=== PATIENT | male | born 1960 ===

== ENCOUNTER 2016-09-02 15:52 | Inpatient (IN) | payer BC ==
[2016-09-02] MEDS ORDERED: Sodium Chloride 0.9% 2,000 ML IV STA (16:08)
[2016-09-02] MEDS ORDERED: Naloxone 4 mg/10 ml Inj IV STA (16:34)
[2016-09-02 16:35] LABS: HEMATOCRIT 49.4 % (42.0-52.0); MEAN CELL VOLUME 93.9 fL (80.0-105.0); MEAN CORPUSCULAR HEMOGLOBIN 31.2 pg (25.0-35.0); MEAN CORPUSCULAR HGB CONC 33.2 g/dl (31.0-37.0); MEAN PLATELET VOLUME 11.4 fl (7.0-11.0); PLATELET COUNT 480 [, 10^3/uL] (120.0-450.0); RED CELL DISTRIBUTION WIDTH 12.7 % (11.5-14.5)
[2016-09-02 16:37] LABS: VENOUS BLOOD GAS BASE EXCESS -26.8 mmol/L (0.0-2.0)
[2016-09-02 16:45] LABS: ALB/GLOB RATIO 1.6 (1.1-1.8); BILIRUBIN,TOTAL 0.9 mg/dL (0.2-1.3); CALCIUM 9.1 mg/dL (8.4-10.5); INR 1.65 (0.93-1.08); MAGNESIUM 2.8 mg/dL (1.7-2.2); PARTIAL THROMBOPLASTIN TIME 29.5 Seconds (23.7-30.8); PHOSPHOROUS 12.3 mg/dL (2.5-4.5); TOTAL PROTEIN 7.4 g/dL (5.8-8.3)
[2016-09-02 16:50] LABS: ADD MANUAL DIFF? YES
[2016-09-02 16:51] LABS: WHITE BLOOD COUNT 26.8 [, 10^3/ul] (4.5-11.0)
[2016-09-02 16:52] LABS: ARTERIAL BLOOD GAS HCO3 3.1 mmol/L (21-28)
[2016-09-02 16:56] LABS: ARTERIAL BLOOD GAS PH 7.02 (7.35-7.45)
[2016-09-02 16:57] LABS: POTASSIUM 7.7 mmol/L (3.6-5.0); TROPONIN I 0.07 ng/mL
[2016-09-02] MEDS ORDERED: Sodium Bicarbonate (8.4%) 50 Meq Syringe IVP ONE (16:59)
[2016-09-02] MEDS ORDERED: Insulin Regular 1 UNITS/0.01 ML ML IVP STA (16:59)
[2016-09-02] MEDS ORDERED: Naloxone 0.4 mg/ml Inj (Adult) IVP ONE (17:00)
[2016-09-02] MEDS ORDERED: Sodium Chloride 0.9% 1,000 ML IV STA (17:01)
[2016-09-02] MEDS ORDERED: Piperacillin/Tazobact 2.25gm 100 ML IVPB STA (17:02)
[2016-09-02] MEDS ORDERED: Insulin Regular 1 UNITS/0.01 ML ML ONE (17:05)
[2016-09-02] MEDS ORDERED: Sodium Bicarbonate (8.4%) 50 Meq Syringe ONE (17:05)
[2016-09-02] MEDS ORDERED: Insulin Regular 100 UNITS in Sodium Chloride 0.9% 99 ML IV PRN (17:15)
[2016-09-02 17:17] LABS: GRAN # 23.99 (1.4-6.5); NEUTROPHIL 89 % (50.0-70.0)
[2016-09-02] MEDS ORDERED: Albuterol 0.083% Inhal Sol (2.5 mg/3 mL) UD IH STA ×2 (17:19→17:20)
[2016-09-02] MEDS ORDERED: Albuterol 0.083% Inhal Sol (2.5 mg/3 mL) UD ONE (17:22)
[2016-09-02] MEDS ORDERED: Etomidate 20 mg/10ml Inj IV ONE (17:28)
[2016-09-02] MEDS ORDERED: Rocuronium 10 mg/ml (5 ml) ONE (17:29)
[2016-09-02] MEDS ORDERED: Etomidate 20 mg/10ml Inj IVP STA (17:40)
[2016-09-02 17:49] LABS: ERYTHROCYTE SEDIMENTATION RATE 10 mm/hr (0.00-15.0)
--- NOTE | 2016-09-02 18:09 | ED PDOC ---
Arrival/HPI - General Chief Complaint: Altered Mental Status Time Seen by Provider: 09/02/16 16:05 Historian: Family (Daughter) - History of Present Illness Narrative History of Present Illness (Text): 09/02/16 18:04 A 56 year old male, whose past medical history includes diabetes with insulin pump, hypertension and hyperlipidemia, is brought into the emergency department by EMS after being found unresponsive. According to daughter, nobody had spoken to him in the past two days (they tried yesterday). Earlier this afternoon, daughter went to patient's house and found him unresponsive on the floor covered in feces. EMS was called and patient was brought into the emergency room unresponsive. Patient unable to provide any additional history. HPI and ROS limited due to patient's state. PMD: Dr. Karan Neil Time/Duration: Prior to Arrival Symptom Course: Unchanged Quality: Other Context: Home Past Medical History - Provider Review Nursing Documentation Reviewed: Yes - Infectious Disease Hx of Infectious Diseases: None - Cardiac Hx Cardiac Disorders: Yes Other/Comment: Aortic valve problem (unknown by family) - Endocrine/Metabolic Hx Diabetes Mellitus Type 1: Yes - Psychiatric Hx Substance Use: No (denied by family) - Surgical History Other/Comment: Unknown by family. Family/Social History - Physician Review Nursing Documentation Reviewed: Yes Family/Social History: No Known Family HX Smoking Status: Unknown If Ever Smoked Hx Alcohol Use: No (denied by family) Hx Substance Use: No (denied by family) Allergies/Home Meds Allergies/Adverse Reactions: Allergies No Known Allergies Allergy (Verified 09/02/16 16:18) Home Medications: Home Meds Medication Instructions Recorded Confirmed Unobtainable 09/02/16 09/02/16 Review of Systems - Review of Systems Systems not reviewed;Unavailable: Other (Unresponsive) Physical Exam Vital Signs Reviewed: Yes Vital Signs Temp Pulse Resp BP Pulse Ox 09/02/16 17:52 122 H 40 H 135/79 100 09/02/16 17:45 123 H 34 H 122/57 L 81 L 09/02/16 17:26 121 H 28 H 171/88 H 82 L 09/02/16 17:22 118 H 31 H 86/30 L 79 L 09/02/16 16:52 118 H 31 H 69/22 L 81 L 09/02/16 16:49 120 H 35 H 90/40 L 80 L 09/02/16 16:37 97.2 F L 122 H 35 H 106/39 L 80 L 09/02/16 16:01 97.2 F L 120 H 32 H 78/38 L 80 L Temperature: Afebrile Blood Pressure: Hypotensive Pulse: Tachycardic Respiratory Rate: Tachypneic Appearance: Positive for: Ill-Appearing, Other (Sick appearing, covered in feces residue with foul smell, unresponsive to voice; minimal to sternal rub) Mental Status: Positive for: other (Minimal response to sternal rub, moving all extremities) - Systems Exam Head: Present: Normocephalic, Swelling (Mild left upper eyelid and left sided facial swelling) Pupils: Present: PERRL (3 mm b/L reactive) Conjunctiva: Present: Normal Mouth: Present: Dry Pharnyx: No: ERYTHEMA Respiratory/Chest: Present: Clear to Auscultation, Good Air Exchange, Respiratory Distress, Accessory Muscle Use, Tachypneic Cardiovascular: Present: Normal S1, S2, Tachycardic. No: Murmurs Abdomen: Present: Normal Bowel Sounds, Other (Insulin pump present). No: Tenderness, Distention, Peritoneal Signs Upper Extremity: Present: Normal Inspection, Normal ROM. No: Cyanosis, Edema Lower Extremity: Present: Normal Inspection, Normal ROM. No: Edema Skin: Present: Warm, Dry, Normal Color. No: Rashes Psychiatric: Present: Other (Unresponsive (minimal response to sternal rub)) Medical Decision Making ED Course and Treatment: 09/02/16 18:04 Impression: A 56 year old male brought in unresponsive with unstable vitals as noted. No further history is obtainable. Plan: -- Head CT -- Maxillofacial CT -- Chest xray -- EKG -- Labs -- Blood and Urine culture -- Urinalysis -- Medication -- Reassess and disposition Progress Notes: Patient hypotensive; IV access established and given normal saline. Given narcan with no improvement. FSG > 500. Concern for possible DKA. Labs confirm severe metabolic acidosis with findings consistent with DKA and possible sepsis with renal failure. Lactic is acid is very high as well. Code sepsis called. Case discussed with ICU attending Dr. Osorio. Patient also with severe hyperkalemia with peaked T waves on EKG, which otherwise showed tachycardia with unremarkable CXR. Patient continuing to receive aggressive hydration; given calcium given K+ of 7.7 and albuterol. Additionally given HCO3 and insulin for acidosis/DKA. Patient also given empiric IV antibiotics for possible sepsis given leukocytosis and lactic acidosis and possible sepsis. Patient continuing to have labile BP despite aggressive treatment; R femoral line placed for additional access (placed by Dr. Gutierrez, under my supervision) and possible pressor support if needed. 09/02/16 20:12 Upon additional discussion with Dr. Osorio with patient continuing to be in severe respiratory distress and severe acidosis while desaturating to near 80% despite non-rebreather; patient continuing to be nonresponsive - patient in need of intubation for impending respiratory failure as well as airway protection. Discussed at length with family who said that the patient had stated in the past that he wishes to be DNR. Given concern of patient possibly wishing to be DNR, spoke with patient's previous PMD, Dr. Martinez ([phone]) who said he has no written documentation of the patient being DNR or documentation of any such discussion. Also spoke with patient's current PMD, Dr. Zia Neil, who also reported no written documentation or discussion with the patient regarding DNR. It is unclear under what circumstances the patient may have said he wants to be DNR and to which medical conditions he may have wanted this applied. Additionally with the patient being a person who works and is a functional, it is unclear why he may have wanted to be DNR, if he did and whether there were specific reasons he may have contemplated this. There is no previous psych assessment that we can access regarding this. It is also unclear as to whether the patient ever wished to be DNI as well. So given the lack of documentation and the uncertainty regarding any DNR and especially DNI, it would have been inappropriate to withhold the medically necessary procedure of intubation for this patient. This matter was discussed extensively with the family - the and daughter. 09/02/16 20:25 Endotracheal intubation note: Patient given etomidate without paralysis - one look done with mac-4; patient very anterior - tube passed but no color change on CO2 capnometry; tube removed. Patient then paralyzed with rocuronium and Glidescope used; cords visualized well and ET tube successfully passed with BS equal b/L with color change on CO2. 09/02/16 20:28 Case was discussed with Dr. Karan Neil, who will admit the patient to his service. - Critical Care Critical Care Minutes: 90 minutes - Lab Interpretations Lab Results: 09/02/16 16:22 09/02/16 16:22 Lab Results 09/02/16 16:45: pCO2 12 L*, pO2 143.0 H, HCO3 3.1 L*, ABG pH 7.02 L*, ABG Total CO2 3.5 L, ABG O2 Saturation 99.7 H, ABG Base Excess -25.9 L, ABG Potassium 6.6 H*, Sodium 132.0, Chloride 96.0 L, Glucose > 750 H*, Lactate 7.2 H*, FiO2 21.0, Arterial Blood Potassium 6.6 H* 09/02/16 16:22: WBC 26.8 H*, RBC 5.26, Hgb 16.4, Hct 49.4, MCV 93.9, MCH 31.2, MCHC 33.2, RDW 12.7, Plt Count 480 H, MPV 11.4 H, Gran # 23.99 H, Neutrophils % (Manual) 89 H, Lymphocytes % (Manual) 3 L, Monocytes % (Manual) 8 H, ESR 10, PT 17.8 H, INR 1.65 H, APTT 29.5, Puncture Site Cancelled, pCO2 Cancelled, pO2 55, HCO3 Cancelled, ABG pH Cancelled, ABG Total CO2 Cancelled, ABG O2 Saturation Cancelled, ABG Base Excess Cancelled, Humble Test Cancelled, ABG Potassium Cancelled, VBG pH 6.90 L*, VBG pCO2 27.0 L, VBG HCO3 5.3 L, VBG Total CO2 6.1 L , VBG O2 Sat (Calc) 81.2 H, VBG Base Excess -26.8 L, VBG Potassium 8.1 H*, A-a O2 Difference Cancelled, Respiratory Index Cancelled, Sodium 131.0 L, Chloride 90.0 L, Glucose > 750 H*, Lactate 9.2 H*, Liter Flow Cancelled, Vent Mode Cancelled, Mechanical Rate Cancelled, Spontaneous Rate Cancelled, FiO2 21.0, Tidal Volume Cancelled, PEEP Cancelled, Pressure Support Cancelled, CPAP Cancelled, Inspiratory BiPAP Cancelled, Expiratory BiPAP Cancelled, Potassium 7.7 H*, Carbon Dioxide 8 L, Anion Gap 44 H, BUN 56 H, Creatinine 3.7 H, Est GFR ( Amer) 21, Est GFR (Non-Af Amer) 17, Random Glucose 930 H*, Calcium 9.1 , Phosphorus 12.3 H, Magnesium 2.8 H, Total Bilirubin 0.9, AST 181 H, ALT 54, Alkaline Phosphatase 106, Lactate Dehydrogenase 1469 H, Total Creatine Kinase 33790 H, CK-MB (CK-2) 55.3 H, CK-MB (CK-2) % 0.5 L, Troponin I 0.07, NT-Pro-B Natriuret Pep 2950 H, Total Protein 7.4, Albumin 4.6, Globulin 2.8, Albumin/ Globulin Ratio 1.6, Lipase 25, Arterial Blood Potassium Cancelled, Venous Blood Potassium 8.1 H*, Salicylates < 1 L, Acetaminophen < 10.0 L, Alcohol, Quantitative < 10 I have reviewed the lab results: Yes - RAD Interpretation Narrative RAD Interpretations (Text): 09/02/16 20:30 CXR: nad Radiology Orders: 09/02/16 16:07 CHEST PORTABLE [RAD] Stat 09/02/16 16:12 Brain [HEAD W/O CONTRAST] [CT] Stat 09/02/16 16:48 MAXILLOFACIAL W/O CONTRAST [CT] Stat 09/02/16 17:54 CHEST PORTABLE [RAD] Stat - EKG Interpretation EKG Interpretation (Text): 09/02/16 20:30 sinus tachycardia @ 117 with peaked T waves; no ST changes; normal axis and normal intervals. Interpreted by ED Physician: Yes Type: 12 lead EKG Comparison: No previous EKG avail. - Medication Orders Current Medication Orders: Insulin Human Regular 100 (units/ Sodium Chloride) 100 mls @ 8 mls/hr IV .[id number] PRN; Protocol; 8 UNITS/HR PRN Reason: TITRATE PER MD ORDER Last Admin: 09/02/16 19:56 Dose: 12 MLS/HR Titration Intervention Document 09/02/16 19:56 [id number] (Rec: 09/02/16 19:57 [id number]) Titration Intake Container Volume 100 Titration Dosing Titration Dose 12 IV Rate 12 Intake/Decrease Start eMAR Start Stop Document 09/02/16 19:56 [id number] (Rec: 09/02/16 19:57 [id number]) Intravenous Solution Start Date 09/02/16 Start Time 19:57 Sodium Bicarbonate 75 meq/ (Sodium Chloride) 1,075 mls @ 200 mls/hr IV .Q5H23M BECKY Last Admin: 09/02/16 19:57 Dose: 200 MLS/HR eMAR Start Stop Document 09/02/16 19:57 [id number] (Rec: 09/02/16 19:57 [id number]) Intravenous Solution Start Date 09/02/16 Start Time 19:57 Cefepime HCl (Maxipime 1gm) 100 mls @ 100 mls/hr IVPB Q12 BECKY PRN Reason: Protocol Metronidazole (Flagyl) 100 mls @ 100 mls/hr IVPB Q8 BECKY PRN Reason: Protocol Pantoprazole Sodium (Protonix Inj) 40 mg IVP DAILY BECKY Discontinued Medications Albuterol Sulfate (Albuterol 0.083% Inhal Kari (2.5 Mg/3 Ml) Ud) 2.5 mg IH STAT STA Stop: 09/02/16 17:20 Albuterol Sulfate (Albuterol 0.083% Inhal Kari (2.5 Mg/3 Ml) Ud) 2.5 mg IH STAT STA Stop: 09/02/16 17:21 Last Admin: 09/02/16 17:22 Dose: 2.5 MG Albuterol Sulfate (Albuterol 0.083% Inhal Kari (2.5 Mg/3 Ml) Ud) Confirm Administered Dose 7.5 mg .ROUTE .STK-MED ONE Stop: 09/02/16 17:23 Calcium Gluconate (Calcium Gluconate Iv) 1,000 mg IVP ONCE ONE Stop: 09/02/16 17:16 Last Admin: 09/02/16 17:22 Dose: 1,000 MG IVP Administration Document 09/02/16 17:22 OCS (Rec: 09/02/16 17:22 OCS [id number]) Charges for Administration # of IVP Administrations 1 Etomidate (Amidate) Confirm Administered Dose 20 mg IV .STK-MED ONE Stop: 09/02/16 17:29 Last Admin: 09/02/16 17:40 Dose: 20 MG eMAR Start Stop Document 09/02/16 17:40 OCS (Rec: 09/02/16 19:20 OCS [id number]) Intravenous Solution Start Date 09/02/16 Start Time 17:40 End Date 09/02/16 End time 17:41 Total Infusion Time 1 Etomidate (Amidate) 20 mg IVP STAT STA Stop: 09/02/16 17:41 Sodium Chloride (Sodium Chloride 0.9%) 2,000 mls @ 999 mls/hr IV .Q2H1M STA Stop: 09/02/16 18:08 Last Admin: 09/02/16 16:29 Dose: 999 MLS/HR eMAR Start Stop Document 09/02/16 16:29 OCS (Rec: 09/02/16 16:29 OCS [id number]) Intravenous Solution Start Date 09/02/16 Start Time 16:29 Sodium Chloride (Sodium Chloride 0.9%) 1,000 mls @ 999 mls/hr IV .Q1H1M STA Stop: 09/02/16 18:01 Last Admin: 09/02/16 17:12 Dose: 999 MLS/HR eMAR Start Stop Document 09/02/16 17:12 REED (Rec: 09/02/16 17:12 REED [id number]) Intravenous Solution Start Date 09/02/16 Start Time 17:12 Vancomycin HCl 1 gm/ Sodium (Chloride) 250 mls @ 133.333 mls/hr IV STAT STA PRN Reason: Protocol Stop: 09/02/16 18:53 Last Admin: 09/02/16 20:09 Dose: 133.333 MLS/HR eMAR Start Stop Document 09/02/16 20:09 MHA (Rec: 09/02/16 20:10 MHA [id number]) Intravenous Solution Start Date 09/02/16 Start Time 20:10 End Date 09/02/16 End time 21:40 Total Infusion Time 90 Piperacillin Sod/Tazobactam Sod (Zosyn 2.25 Gm In 0.9% 100 Ml) 100 mls @ 100 mls/hr IVPB STAT STA PRN Reason: Protocol Stop: 09/02/16 18:01 Last Admin: 09/02/16 17:34 Dose: 100 MLS/HR eMAR Start Stop Document 09/02/16 17:34 OCS (Rec: 09/02/16 17:34 OCS [id number]) Intravenous Solution Start Date 09/02/16 Start Time 17:34 Insulin Human Regular 100 (units/ Sodium Chloride) 100 mls @ 8 mls/hr IV .[id number] PRN; Protocol; 8 UNITS/HR PRN Reason: TITRATE PER MD ORDER Insulin Human Regular (Humulin R) 10 units IVP ONCE STA Stop: 09/02/16 17:00 Last Admin: 09/02/16 17:11 Dose: 10 UNITS Subcutaneous Admin in ER Document 09/02/16 17:11 REED (Rec: 09/02/16 17:11 REED [id number]) Injection Site MAR Injection Site Left Arm IVP Administration Document 09/02/16 17:11 [email or web address] (Rec: 09/02/16 17:11 REED [id number]) Charges for Administration # of IVP Administrations 1 Insulin Human Regular (Humulin R) Confirm Administered Dose 10 units .ROUTE .STK -MED ONE Stop: 09/02/16 17:06 Last Admin: 09/02/16 17:12 Dose: Naloxone HCl (Narcan) 0.4 mg IV STAT STA Stop: 09/02/16 16:35 Last Admin: 09/02/16 16:20 Dose: 0.4 MG eMAR Start Stop Document 09/02/16 16:20 OCS (Rec: 09/02/16 16:51 OCS [id number]) Intravenous Solution Start Date 09/02/16 Start Time 16:34 Naloxone HCl (Narcan) 0.4 mg IVP ONCE ONE Stop: 09/02/16 17:01 Last Admin: 09/02/16 17:16 Dose: Rocuronium Ransom (Zemuron) Confirm Administered Dose 50 mg .ROUTE .STK-MED ONE Stop: 09/02/16 17:30 Last Admin: 09/02/16 17:45 Dose: 40 MG Sodium Bicarbonate (Sodium Bicarbonate (8.4%) 50 Meq Syringe) 100 meq IVP ONCE ONE Stop: 09/02/16 17:00 Last Admin: 09/02/16 17:11 Dose: 100 MEQ IVP Administration Document 09/02/16 17:11 REED (Rec: 09/02/16 17:11 REED [id number]) Charges for Administration # of IVP Administrations 1 Sodium Bicarbonate (Sodium Bicarbonate (8.4%) 50 Meq Syringe) Confirm Administered Dose 100 meq .ROUTE .STK-MED ONE Stop: 09/02/16 17:06 Last Admin: 09/02/16 17:12 Dose: - Scribe Statement The provider has reviewed the documentation as recorded by the Luke Reece Provider Scribe Attestation: All medical record entries made by the Scribe were at my direction and personally dictated by me. I have reviewed the chart and agree that the record accurately reflects my personal performance of the history, physical exam, medical decision making, and the department course for this patient. I have also personally directed, reviewed, and agree with the discharge instructions and disposition. Disposition/Present on Arrival - Present on Arrival Any Indicators Present on Arrival: No History of DVT/PE: No History of Uncontrolled Diabetes: No Urinary Catheter: No History of Decub. Ulcer: No History Surgical Site Infection Following: None - Disposition Have Diagnosis and Disposition been Completed?: Yes Diagnosis: Diabetic ketoacidosis, Altered mental status, Lactic acidosis, Renal failure, Hyperkalemia, Rhabdomyolysis, Leukocytosis Disposition: HOSPITALIZED Disposition Time: 17:55 Patient Plan: Admission, ICU Patient Problems: Current Active Problems Problem Status Diagnosed Altered mental status Acute Diabetic ketoacidosis Acute Lactic acidosis Acute Condition: CRITICAL Central Line Placement - Central Line Placement Indication: Emergent IV Access Central Line Placement: Right: Femoral The Area Was Thoroughly Prepared With: Betadine, Chlorhexidine, Draped Using Sterile Technique Area Was Locally Anesthetized With: Lidocaine 1% Procedure: Triple Lumen, Placed Using Standard Seldinger Technique, Catheter Was Sewn Into Place, Sterile Dressing Placed Over Line Endotracheal Intubation - Endotracheal Intubation Intubated With ETT Size: 7 (actual tub was 7.5 ([employer] will not permit decimal )) Blade Type Used: Curved (mac 4) Indication: Airway Protection Intubated: Orally Medications Used During Pre-Intubation: Etomidate Paralyzed With: Rocuronium Post-Intubation Assessment: ETT Secured AT (cm): (23), Breath Sounds Equal Bilat , Placement Confirmed Via CXR, Color Change W/End Tidal CO2 Detector, Oxygen Saturation: (100% after intubation)
--- NOTE | 2016-09-02 18:18 | CP.CCUPN ---
<Ema Romero - Last Filed: 09/02/16 18:06> CCU Subjective - Physician Review Events Since Last Encounter (Free Text): 09/02/16 18:06 CC: Unresponsive HPI: 56 yo M w h/o DM1, HTN, HLD, Bicuspid aortic valve found unresponsive at home on the floor by one of his daughters, who subsequently called 911. Patient is obtunded and unable to provide history. History is obtained from patient's other daughter and patient's . Patient reportedly has extensive diabetic history, has been found unresponsive previously, last in 2009. He was started on insulin pump 3-4 years ago, has not had significant blood sugar control problems since that time. He has, however, been telling his daughter he has not been feeling well recently, for approximately the past month, reportedly stating to her he was lightheaded and no feeling himself. According to his daughter, he had not been complaining of a cough, dysuria or any infectious complaints. He is reportedly complaint with medications. Family elicits history of patient being very active on [employer], however last active time was Tuesday at 8:37pm. spoke with him last Tuesday morning, and he was fine. Patient;s daughter tried to speak with him yesterday and was unable to do so. PMHx: DM1, HTN, HLD, Bicuspid aortic valve PSHx: Laser eye sx 2015, L rotator cuff 2010 FamHx: Mom had kidney disease, heart disease. Dad was a smoker, had heart disease SocialHx: Formerly chewed tobacco. Never smoked tobacco. Social EtOH. No h/o drug abuse. 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 Has been from since January 2016. 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 Allergies: NKDA HomeMeds: Insulin pump, lipitor, unknown BP med Critical Care Time Spent (in minutes): 60 CCU Objective - Vital Signs / Intake & Output Intake and Output (Last 8hrs): Intake & Output 09/02/16 09/02/16 09/02/16 06:59 14:59 22:59 Weight 180 lb - Physical Exam Head: Positive for: Normocephalic Pupils: Positive for: Pinpoint (s/p paralytics for intubation) Conjunctiva: Positive for: Normal Ears: Positive for: Normal Mouth: Positive for: Dry Neck: Negative for: JVD Respiratory/Chest: Positive for: Clear to Auscultation Cardiovascular: Positive for: Tachycardic (sinus) Abdomen: Negative for: Distention Upper Extremity: Negative for: Swelling Neurological: Negative for: GCS=15 (obtunded) Skin: Positive for: Cold Psychiatric: Positive for: Lethargic (obtunded). Negative for: Alert - Medications Active Medications: Active Medications Generic Name Dose Route Start Last Admin Trade Name Freq PRN Reason Stop Dose Admin Sodium Chloride 2,000 mls @ 999 mls/hr 09/02/16 16:08 09/02/16 16:29 Sodium Chloride 0.9% IV 09/02/16 18:08 999 mls/hr .Q2H1M STA Administration Vancomycin HCl 1 gm/ Sodium 250 mls @ 133.333 mls/hr 09/02/16 17:01 Chloride IV 09/02/16 18:53 STAT STA Protocol Insulin Human Regular 100 100 mls @ 8 mls/hr 09/02/16 17:15 units/ Sodium Chloride IV .[id number] PRN TITRATE PER MD ORDER Protocol 8 UNITS/HR - Patient Studies Lab Studies: Lab Studies 09/02/16 09/02/16 Range/Units 16:45 16:22 WBC 26.8 H* (4.5-11.0) 10^3/ul RBC 5.26 (3.5-6.1) 10^6/uL Hgb 16.4 (14.0-18.0) gm/dL Hct 49.4 (42.0-52.0) % MCV 93.9 (80.0-105.0) fL MCH 31.2 (25.0-35.0) pg MCHC 33.2 (31.0-37.0) g/dl RDW 12.7 (11.5-14.5) % Plt Count 480 H (120.0-450.0) 10^3/uL MPV 11.4 H (7.0-11.0) fl Gran # 23.99 H (1.4-6.5) Neutrophils % (Manual) 89 H (50.0-70.0) % Lymphocytes % (Manual) 3 L (22.0-35.0) % Monocytes % (Manual) 8 H (1.0-6.0) % ESR 10 (0.00-15.0) mm/hr PT 17.8 H (9.9-11.8) Seconds INR 1.65 H (0.93-1.08) APTT 29.5 (23.7-30.8) Seconds Puncture Site Cancelled pCO2 12 L* Cancelled (35-45) mm/Hg pO2 143.0 H 55 (80-100) mm/Hg HCO3 3.1 L* Cancelled (21-28) mmol/L ABG pH 7.02 L* Cancelled (7.35-7.45) ABG Total CO2 3.5 L Cancelled (22-28) mmol.L ABG O2 Saturation 99.7 H Cancelled (95-98) % ABG Base Excess -25.9 L Cancelled (-2.0-3.0) mmol/L Humble Test Cancelled ABG Potassium 6.6 H* Cancelled (3.6-5.2) mmol/L VBG pH 6.90 L* (7.32-7.43) VBG pCO2 27.0 L (40-60) VBG HCO3 5.3 L (21-28) mmol/l VBG Total CO2 6.1 L (22-28) mmol.L VBG O2 Sat (Calc) 81.2 H (40-65) % VBG Base Excess -26.8 L (0.0-2.0) mmol/L VBG Potassium 8.1 H* (3.6-5.2) mmol/L A-a O2 Difference Cancelled Respiratory Index Cancelled Sodium 132.0 131.0 L (132-148) mmol/L Chloride 96.0 L 90.0 L (98-107) mmol/L Glucose > 750 H* > 750 H* (75-110) mg/dl Lactate 7.2 H* 9.2 H* (0.7-2.1) mmol/L Liter Flow Cancelled Vent Mode Cancelled Mechanical Rate Cancelled Spontaneous Rate Cancelled FiO2 21.0 21.0 % Tidal Volume Cancelled PEEP Cancelled Pressure Support Cancelled CPAP Cancelled Inspiratory BiPAP Cancelled Expiratory BiPAP Cancelled Potassium 7.7 H* (3.6-5.0) mmol/L Carbon Dioxide 8 L (21-33) mmol/L Anion Gap 44 H (10-20) BUN 56 H (7-21) mg/dL Creatinine 3.7 H (0.5-1.4) mg/dL Est GFR ( Amer) 21 Est GFR (Non-Af Amer) 17 Random Glucose 930 H* (70-110) mg/dL Calcium 9.1 (8.4-10.5) mg/dL Phosphorus 12.3 H (2.5-4.5) mg/dL Magnesium 2.8 H (1.7-2.2) mg/dL Total Bilirubin 0.9 (0.2-1.3) mg/dL AST 181 H (15-59) U/L ALT 54 (7-56) U/L Alkaline Phosphatase 106 (38-133) U/L Lactate Dehydrogenase 1469 H (333-699) U/L Total Creatine Kinase 82283 H (35-230) U/L CK-MB (CK-2) 55.3 H (0.0-3.6) ng/mL CK-MB (CK-2) % 0.5 L (2.5-3.0) % Troponin I 0.07 ng/mL NT-Pro-B Natriuret Pep 2950 H (0-450) pg/mL Total Protein 7.4 (5.8-8.3) g/dL Albumin 4.6 (3.0-4.8) g/dL Globulin 2.8 gm/dL Albumin/Globulin Ratio 1.6 (1.1-1.8) Lipase 25 (23-300) U/L Arterial Blood Potassium 6.6 H* Cancelled (3.6-5.2) mmol/L Venous Blood Potassium 8.1 H* (3.6-5.2) mmol/L Salicylates < 1 L (2.0-20.0) mg/dL Acetaminophen < 10.0 L (10.0-20.0) ug/ml Alcohol, Quantitative < 10 (0-10) mg/dL Laboratory Results - last 24 hr 09/02/16 09/02/16 16:22 16:45 WBC 26.8 H* RBC 5.26 Hgb 16.4 Hct 49.4 MCV 93.9 MCH 31.2 MCHC 33.2 RDW 12.7 Plt Count 480 H MPV 11.4 H Gran # 23.99 H Neutrophils % (Manual) 89 H Lymphocytes % (Manual) 3 L Monocytes % (Manual) 8 H ESR 10 PT 17.8 H INR 1.65 H APTT 29.5 Puncture Site Cancelled pCO2 Cancelled 12 L* pO2 55 143.0 H HCO3 Cancelled 3.1 L* ABG pH Cancelled 7.02 L* ABG Total CO2 Cancelled 3.5 L ABG O2 Saturation Cancelled 99.7 H ABG Base Excess Cancelled -25.9 L Humble Test Cancelled ABG Potassium Cancelled 6.6 H* VBG pH 6.90 L* VBG pCO2 27.0 L VBG HCO3 5.3 L VBG Total CO2 6.1 L VBG O2 Sat (Calc) 81.2 H VBG Base Excess -26.8 L VBG Potassium 8.1 H* A-a O2 Difference Cancelled Respiratory Index Cancelled Sodium 133 132.0 Chloride 89 L 96.0 L Glucose > 750 H* > 750 H* Lactate 9.2 H* 7.2 H* Liter Flow Cancelled Vent Mode Cancelled Mechanical Rate Cancelled Spontaneous Rate Cancelled FiO2 21.0 21.0 Tidal Volume Cancelled PEEP Cancelled Pressure Support Cancelled CPAP Cancelled Inspiratory BiPAP Cancelled Expiratory BiPAP Cancelled Potassium 7.7 H* Carbon Dioxide 8 L Anion Gap 44 H BUN 56 H Creatinine 3.7 H Est GFR ( Amer) 21 Est GFR (Non-Af Amer) 17 Random Glucose 930 H* Calcium 9.1 Phosphorus 12.3 H Magnesium 2.8 H Total Bilirubin 0.9 AST 181 H ALT 54 Alkaline Phosphatase 106 Lactate Dehydrogenase 1469 H Total Creatine Kinase 06453 H CK-MB (CK-2) 55.3 H CK-MB (CK-2) % 0.5 L Troponin I 0.07 NT-Pro-B Natriuret Pep 2950 H Total Protein 7.4 Albumin 4.6 Globulin 2.8 Albumin/Globulin Ratio 1.6 Lipase 25 Arterial Blood Potassium Cancelled 6.6 H* Venous Blood Potassium 8.1 H* Salicylates < 1 L Acetaminophen < 10.0 L Alcohol, Quantitative < 10 EKG/Cardiology Studies: Cardiology / EKG Studies 09/02/16 16:07 ELECTROCARDIOGRAM Stat Comment: Reason For Exam: Sepsis Patient Review of Systems - Review of Systems Systems not reviewed;Unavailable: Intubated Critical Care Progress Note - Vent Settings MODE:: PRVC Assessment/Plan - Assessment and Plan (Free Text) Assessment: 56 yo M w h/o DM1, HTN, HLD, bicuspid aortic valve found unresponsive at home admitted to ICU in DKA, sepsis, encephalopathy, rhabdomyolysis, CHANTEL, electrolyte abnormalities Plan: Neuro: Obtunded. Unresponsive likely 2/2 metabolic/septic encephalopathy Pulm: PRVC 450/22/100/5. Titrate to maintain SpO2>90, PaO2>60. Protective lung ventilation strategy. HOB >35 degrees. Aspiration precautions Daily ABGs and CXR while intubated CV: will obtain 2D ECHO to assess LV function. Trend troponins. GI: GI ppx. NPO Transaminitis. Continue to monitor Endo: DKA with pH 7.02 on ABG. 1/2NS 75meq NaBicarb @200cc/hr. Insulin gtt. CMP Q4hr, Accuchecks Q1hr Hb A1C Renal: CHANTEL likely 2/2 rhabdo +/- sepsis +/- dehydration. Unknown baseline. Renal US Significant hyperkalemia 7.7 likely 2/2 rhabdo. Continue to monitor Continue to trend CPK ID: Leukocytosis 26.8. s/p Zosyn x1 in ER. Will start Vancomycin, Cefepime and Flagyl. Vanc trough in AM given CHANTEL. Will obtain blood and urine cultures. Procalcitonin pending. Followup Lactic acid this evening Heme: Hb 16.4. No signs of bleeding. Continue to monitor DVT/GI ppx: NPO, Protonix, SQH if CT head negative for bleed - Date & Time Date: 09/02/16 Time: 18:20 <Humza Osorio - Last Filed: 09/02/16 18:54> CCU Objective - Medications Active Medications: Active Medications Generic Name Dose Route Start Last Admin Trade Name Freq PRN Reason Stop Dose Admin Insulin Human Regular 100 100 mls @ 8 mls/hr 09/02/16 18:06 units/ Sodium Chloride IV .[id number] PRN TITRATE PER MD ORDER Protocol 8 UNITS/HR Sodium Bicarbonate 75 meq/ 1,075 mls @ 200 mls/hr 09/02/16 18:15 Sodium Chloride IV .[id number] [facility] Cefepime HCl 100 mls @ 100 mls/hr 09/02/16 22:00 Maxipime 1gm IVPB Q12 [facility] Protocol Metronidazole 100 mls @ 100 mls/hr 09/02/16 22:00 Flagyl IVPB Q8 [facility] Protocol Pantoprazole Sodium 40 mg 09/03/16 10:00 Protonix Inj IVP DAILY [facility] Attending/Attestation - Attestation I have personally seen and examined this patient.: Yes I have fully participated in the care of the patient.: Yes I have reviewed all pertinent clinical information: Yes Notes (Text): 09/02/16 18:53 The patient was seen and examined at the bedside. Patient care was discussed with resident Medical records, lab studies, and imaging were reviewed and management issues were discussed and formulated. Last 24H events reviewed. Agree with above treatment plans as outlined in 's note with addition of the following: Respiratory Failure \ Hypoxemia \Encephalopathy \ Sepsis \ DKA \ CHANTEL \ Rhabdo \ Electrolite abnormalities -hemodynamic monitoring to maintain MAP>65; currently stable -f\u serial ECG and CE; f\u Echo -mechanical ventilation and o2 supplementation to maintain Spo2 >90 Pao2>60 -monitor for TV 6ml\kg IBW and plateau pressure <30 -f\u Abg -CXR reviewed, no visible opacification noted (pls f\u official read) -continue broad spectrum Abx and and f\u cultures and U\A and Vanco levels -consider ID team eval -f\u Bun\Cr and U\o; start 1/2NS with 75meq Sodium bicarb for isotonic, low chloride fluid resuscitation in setting of CHANTEL -f\u renal US -K+ noted elevated; hyperkalemia protocol given in ED , f\u repeat K+ level -NPO and aspiration precautions -f\u CT head stat -f\u repeat labs: including lactate, CE and CMP -continue Insulin drip as per protocol and BGM q1h -monitor CH7 for Anion gap q4hrs -f\u HbA1c -consider endocrine eval -DVT \ PUD prophylaxis CCM eval time >55mins
--- NOTE | 2016-09-02 19:08 | CT ---
PROCEDURE: CT HEAD WITHOUT CONTRAST. HISTORY: unresponsive COMPARISON: None available. TECHNIQUE: Axial computed tomography images were obtained through the head/brain without intravenous contrast. Radiation dose: Total exam DLP = 822 mGy-cm. FINDINGS: HEMORRHAGE: No intracranial hemorrhage. BRAIN: No mass effect or edema. No atrophy or chronic microvascular ischemic changes. VENTRICLES: Unremarkable. No hydrocephalus. CALVARIUM: Unremarkable. PARANASAL SINUSES: Unremarkable as visualized. No significant inflammatory changes. MASTOID AIR CELLS: Unremarkable as visualized. No inflammatory changes. OTHER FINDINGS: None. IMPRESSION: No acute intracranial findings
--- NOTE | 2016-09-02 19:11 | CT ---
PROCEDURE: CT MAXILLOFACIAL BONES WITHOUT CONTRAST HISTORY: L facial swelling COMPARISON: None TECHNIQUE: Contiguous axial CT images of the maxillofacial bones were obtained. Coronal and sagittal reformats were generated. Radiation dose: Total exam DLP = 853 mGy-cm. FINDINGS: NASAL BONES: Unremarkable. ORBITS: Unremarkable. PARANASAL SINUSES/ MASTOIDS: Clear. MAXILLA: Unremarkable. MANDIBLE/ TEMPOROMANDIBULAR JOINTS: Unremarkable. SKULL BASE: Unremarkable. TEMPORAL BONES: Middle ears and mastoid grossly unremarkable. OTHER FINDINGS: None. IMPRESSION: No evidence of fracture
[2016-09-02 19:26] LABS: URINE BILIRUBIN NEGATIVE (NEGATIVE); URINE BLOOD LARGE (NEGATIVE); URINE GLUCOSE (UA) >=1000 mg/dL (NEGATIVE); URINE KETONE >=80 mg/dL (NEGATIVE); URINE LEUKOCYTE ESTERASE NEGATIVE Leu/uL (NEGATIVE); URINE PROTEIN 30 mg/dL (<30 mg/dL); URINE UROBILINOGEN 0.2 E.U./dL (<1 E.U./dL)
[2016-09-02 19:27] LABS: URINE APPEARANCE SL CLOUDY (CLEAR); URINE COLOR YELLOW (YELLOW)
[2016-09-02 19:33] LABS: URINE BACTERIA FEW (NEG); URINE EPITHELIAL CELLS 0 - 2 /hpf (0-5); URINE RBC 15 - 20 /hpf (0-2); URINE WBC 0 - 2 /hpf (0-6)
[2016-09-02] MEDS: Insulin Regular 100 UNITS in Sodium Chloride 0.9% 99 ML IV PRN ×2 (19:42→19:56)
[2016-09-02 20:13] LABS: VENOUS BLOOD GAS BASE EXCESS -16.6 mmol/L (0.0-2.0)
[2016-09-02 20:22] LABS: ALB/GLOB RATIO 1.5 (1.1-1.8); BILIRUBIN,TOTAL 0.8 mg/dL (0.2-1.3); CALCIUM 7.9 mg/dL (8.4-10.5); POTASSIUM 4.5 mmol/L (3.6-5.0); TOTAL PROTEIN 5.9 g/dL (5.8-8.3); VENOUS BLOOD PH 7.15 (7.32-7.43)
[2016-09-02 20:33] LABS: TROPONIN I 0.06 ng/mL
[2016-09-02 21:54] LABS: ABG MECHANICAL RATE 22; ARTERIAL BLOOD GAS HCO3 15.3 mmol/L (21-28); ARTERIAL BLOOD GAS PH 7.33 (7.35-7.45); ATERIAL BLOOD GAS PEEP 5
[2016-09-02] MEDS: metroNIDAZOLE IV 500 mg/100 ml 100 ML IVPB SCH (21:54)
[2016-09-02] MEDS: Cefepime 1gm in NS 100ml 100 ML IVPB SCH (21:54)
[2016-09-03 00:30] VITALS: BMI 27.4
[2016-09-03 01:19] LABS: ALB/GLOB RATIO 1.3 (1.1-1.8); BILIRUBIN,TOTAL 0.8 mg/dL (0.2-1.3); CALCIUM 8.2 mg/dL (8.4-10.5); POTASSIUM 3.6 mmol/L (3.6-5.0); TOTAL PROTEIN 5.6 g/dL (5.8-8.3)
[2016-09-03 01:29] LABS: TROPONIN I 0.05 ng/mL
[2016-09-03] MEDS: Potassium Chloride 20 MEQ in Dextrose 5%/0.45% NS 1,000 ML IV SCH ×3 (01:42→21:46)
[2016-09-03 05:07] LABS: ARTERIAL BLOOD GAS HCO3 23.1 mmol/L (21-28); ARTERIAL BLOOD GAS O2 CAPACITY 18.9 mL/dl (16-24); ARTERIAL BLOOD GAS O2 CONTENT 18.8 ML/dl (15-23); ARTERIAL BLOOD GAS PH 7.48 (7.35-7.45); ARTERIAL BLOOD HGB O2 SAT 97.1 % (95.0-98.0); CARBOXYHEMOGLOBIN 1.4 % (0.5-1.5); HHB 0.7 % (0-5); METHEMOGLOBIN 0.8 % (0.0-3.0)
[2016-09-03 05:51] LABS: HEMATOCRIT 35.9 % (42.0-52.0); MEAN CELL VOLUME 83.1 fL (80.0-105.0); MEAN CORPUSCULAR HEMOGLOBIN 30.3 pg (25.0-35.0); MEAN CORPUSCULAR HGB CONC 36.5 g/dl (31.0-37.0); RED CELL DISTRIBUTION WIDTH 12.5 % (11.5-14.5); WHITE BLOOD COUNT 16.7 [, 10^3/ul] (4.5-11.0)
[2016-09-03] MEDS: metroNIDAZOLE IV 500 mg/100 ml 100 ML IVPB SCH ×3 (05:54→21:44)
[2016-09-03 06:09] LABS: INR 1.32 (0.93-1.08)
[2016-09-03 06:50] LABS: ALB/GLOB RATIO 1.2 (1.1-1.8); BILIRUBIN,TOTAL 0.5 mg/dL (0.2-1.3); CALCIUM 8.1 mg/dL (8.4-10.5); MAGNESIUM 2.2 mg/dL (1.7-2.2); POTASSIUM 3.5 mmol/L (3.6-5.0); TOTAL PROTEIN 5.4 g/dL (5.8-8.3)
[2016-09-03 06:51] LABS: TROPONIN I 0.05 ng/mL
[2016-09-03 07:57] LABS: VENOUS BLOOD GAS BASE EXCESS 1.1 mmol/L (0.0-2.0)
[2016-09-03 08:30] LABS: ALB/GLOB RATIO 1.2 (1.1-1.8); ALKALINE PHOSPHATASE 67 U/L (38-133); ALT/SGPT 66 U/L (7-56); AST/SGOT 171 U/L (15-59); BILIRUBIN,TOTAL 0.6 mg/dL (0.2-1.3); BLOOD UREA NITROGEN 45 mg/dL (7-21); CALCIUM 7.9 mg/dL (8.4-10.5); CARBON DIOXIDE 24 mmol/L (21-33); CHLORIDE 114 mmol/L (95-110); GFR AFRICAN-AMERICAN > 60; GLUCOSE,RANDOM 188 mg/dL (70-110); POTASSIUM 3.8 mmol/L (3.6-5.0); SODIUM 146 mmol/L (132-148); TOTAL PROTEIN 5.7 g/dL (5.8-8.3)
--- NOTE | 2016-09-03 09:34 | RAD ---
HISTORY: shifted ETT COMPARISON: Earlier same day FINDINGS: LUNGS: The endotracheal tube is now seen at the level of the lower border of the clavicles in satisfactory position. The lungs are clear PLEURA: No significant pleural effusion identified, no pneumothorax apparent. CARDIOVASCULAR: Normal. OSSEOUS STRUCTURES: No significant abnormalities. VISUALIZED UPPER ABDOMEN: Normal. OTHER FINDINGS: None. IMPRESSION: No active disease.
--- NOTE | 2016-09-03 10:06 | RAD ---
HISTORY: post intubation COMPARISON: Earlier same day FINDINGS: LUNGS: No active pulmonary disease. PLEURA: No significant pleural effusion identified, no pneumothorax apparent. CARDIOVASCULAR: Normal. OSSEOUS STRUCTURES: No significant abnormalities. VISUALIZED UPPER ABDOMEN: Normal. OTHER FINDINGS: The endotracheal tube is just above the level of the superior border of the clavicles. IMPRESSION: Suboptimal position of endotracheal tube above the clavicles
--- NOTE | 2016-09-03 10:09 | CARD ---
APPROVED REPORT EKG Measurement Heart [id number] <Conclusion> Sinus tachycardia Peaked T waves V 2 - 5. R/O hyperkalemia
--- NOTE | 2016-09-03 10:10 | RAD ---
HISTORY: Sepsis Patient COMPARISON: No prior. FINDINGS: LUNGS: No active pulmonary disease. PLEURA: No significant pleural effusion identified, no pneumothorax apparent. CARDIOVASCULAR: Normal. OSSEOUS STRUCTURES: No significant abnormalities. VISUALIZED UPPER ABDOMEN: Normal. OTHER FINDINGS: None. IMPRESSION: No active disease.
--- NOTE | 2016-09-03 10:31 | RAD ---
HISTORY: Respiratory failure COMPARISON: 09/02/2016 FINDINGS: The endotracheal tube terminates 4 cm proximal to the sandi. LUNGS: The lungs are well inflated and clear. PLEURA: No significant pleural effusion identified, no pneumothorax apparent. CARDIOVASCULAR: Normal. OSSEOUS STRUCTURES: No significant abnormalities. VISUALIZED UPPER ABDOMEN: Normal. OTHER FINDINGS: None. IMPRESSION: Endotracheal tube terminates 4 cm proximal to the sandi. No active pulmonary disease.
[2016-09-03] MEDS: Cefepime 1gm in NS 100ml 100 ML IVPB SCH ×2 (10:56→21:33)
--- NOTE | 2016-09-03 11:46 | CP.CCUPN ---
<Ema Romero - Last Filed: 09/03/16 14:32> CCU Subjective - Physician Review Events Since Last Encounter (Free Text): 09/03/16 14:32 Patient seen and examined bedside. No acute events overnight. Family at bedside. Relate history of prior insulin pump failure. 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 Patient is calm, on propofol at this time, attempting weaning for possible extubation today. Critical Care Time Spent (in minutes): 40 CCU Objective - Vital Signs / Intake & Output Vital Signs (Last 4 hours): Vital Signs Temp Pulse Resp BP Pulse Ox 09/03/16 10:45 112 H 26 H 148/92 H 100 09/03/16 08:00 100.5 F H 106 H 22 157/90 H 97 Intake and Output (Last 8hrs): Intake & Output 09/02/16 09/03/16 09/03/16 22:59 06:59 14:59 Intake Total 2723 Output Total 1401 Balance 1322 Weight 170 lb 3.2 oz Intake: IV 2723 Right Femoral 550 Left Antecubital 2100 Right Antecubital 73 Output: Urine 1400 Urethral (Bacon) 1400 Stool 1 Other: Voiding Method Indwelling Catheter - Physical Exam Head: Positive for: Normocephalic, Swelling (Mild left upper eyelid and left sided facial swelling) Pupils: Positive for: PERRL (3 mm b/L reactive) Conjunctiva: Positive for: Normal Ears: Positive for: Normal Mouth: Positive for: Dry Pharnyx: Negative for: ERYTHEMA Neck: Negative for: JVD Respiratory/Chest: Positive for: Clear to Auscultation, Good Air Exchange, Respiratory Distress, Accessory Muscle Use, Tachypneic Cardiovascular: Positive for: Normal S1, S2, Tachycardic. Negative for: Murmurs Abdomen: Positive for: Normal Bowel Sounds, Other (Insulin pump present). Negative for: Tenderness, Distention, Peritoneal Signs Upper Extremity: Positive for: Normal Inspection, Normal ROM. Negative for: Cyanosis, Edema Lower Extremity: Positive for: Normal Inspection, Normal ROM. Negative for: Edema Neurological: Negative for: GCS=15 (obtunded) Skin: Positive for: Warm, Dry, Normal Color. Negative for: Rashes Psychiatric: Positive for: Other (Unresponsive (minimal response to sternal rub) ) - Medications Active Medications: Active Medications Generic Name Dose Route Start Last Admin Trade Name Freq PRN Reason Stop Dose Admin Heparin Sodium (Porcine) 5,000 units 09/03/16 01:45 09/03/16 01:41 Heparin SC 5,000 units Q8 BECKY Administration Protocol Insulin Human Regular 100 100 mls @ 8 mls/hr 09/02/16 18:06 09/03/16 11:11 units/ Sodium Chloride IV 3 units/hr .[id number] PRN Titration TITRATE PER MD ORDER Protocol 8 UNITS/HR Cefepime HCl 100 mls @ 100 mls/hr 09/02/16 22:00 09/03/16 10:56 Maxipime 1gm IVPB 100 mls/hr Q12 BECKY Administration Protocol Metronidazole 100 mls @ 100 mls/hr 09/02/16 22:00 09/03/16 05:54 Flagyl IVPB 100 mls/hr Q8 BECKY Administration Protocol Propofol 100 mls @ 2.316 mls/hr 09/02/16 20:42 09/03/16 09:38 Diprivan IV 0 mcg/kg/min .Q24H PRN Titration TITRATE PER MD ORDER Protocol 5 MCG/KG/MIN Potassium Chloride 20 meq/ 1,010 mls @ 150 mls/hr 09/03/16 01:30 09/03/16 01:42 Dextrose/Sodium Chloride IV 150 mls/hr .[id number] BECKY Administration Pantoprazole Sodium 40 mg 09/03/16 10:00 09/03/16 10:56 Protonix Inj IVP 40 mg DAILY BECKY Administration - Patient Studies Lab Studies: Lab Studies 09/03/16 09/03/16 09/03/16 Range/Units 07:45 05:30 05:00 WBC 16.7 H D (4.5-11.0) 10^3/ul RBC 4.32 (3.5-6.1) 10^6/uL Hgb 13.1 L (14.0-18.0) gm/dL Hct 35.9 L (42.0-52.0) % MCV 83.1 (80.0-105.0) fL MCH 30.3 (25.0-35.0) pg MCHC 36.5 (31.0-37.0) g/dl RDW 12.5 (11.5-14.5) % Plt Count 310 (120.0-450.0) 10^3/uL MPV 10.0 (7.0-11.0) fl PT 14.3 H (9.9-11.8) Seconds INR 1.32 H (0.93-1.08) pCO2 31 L (35-45) mm/Hg pO2 156 H 179.0 H (30-55) mm/Hg HCO3 23.1 (21-28) mmol/L ABG pH 7.48 H (7.35-7.45) ABG Total CO2 24.1 (22-28) mmol.L ABG O2 Saturation 99.3 H (95-98) % ABG O2 Content 18.8 (15-23) ML/dl ABG Base Excess 0.4 (-2.0-3.0) mmol/L ABG Hemoglobin 13.5 (11.7-17.4) g/dL ABG Carboxyhemoglobin 1.4 (0.5-1.5) % POC ABG HHb (Measured) 0.7 (0-5) % ABG Methemoglobin 0.8 (0.0-3.0) % ABG O2 Capacity 18.9 (16-24) mL/dl ABG Potassium (3.6-5.2) mmol/L VBG pH 7.50 H (7.32-7.43) VBG pCO2 30.0 L (40-60) VBG HCO3 23.4 (21-28) mmol/l VBG Total CO2 24.3 (22-28) mmol.L VBG O2 Sat (Calc) 99.5 H (40-65) % VBG Base Excess 1.1 (0.0-2.0) mmol/L VBG Potassium 3.6 (3.6-5.2) mmol/L Hgb O2 Saturation 97.1 (95.0-98.0) % Glucose 195 H (75-110) mg/dl Lactate 1.3 (0.7-2.1) mmol/L Mechanical Rate FiO2 21.0 40.0 % Tidal Volume PEEP Sodium 147.0 148 (132-148) mmol/L Potassium 3.8 3.5 L (3.6-5.0) mmol/L Chloride 121.0 H 114 H (98-107) mmol/L Carbon Dioxide 24 27 (21-33) mmol/L Anion Gap 12 11 (10-20) BUN 45 H 48 H (7-21) mg/dL Creatinine 1.4 1.6 H (0.5-1.4) mg/dL Est GFR ( Amer) > 60 55 Est GFR (Non-Af Amer) 53 45 POC Glucose (mg/dL) (65-110) mg/dL Random Glucose 188 H 220 H (70-110) mg/dL Lactic Acid 1.5 (0.7-2.1) mmol/L Calcium 7.9 L 8.1 L (8.4-10.5) mg/dL Phosphorus 2.0 L (2.5-4.5) mg/dL Magnesium 2.2 (1.7-2.2) mg/dL Total Bilirubin 0.6 0.5 (0.2-1.3) mg/dL AST 171 H 184 H (15-59) U/L ALT 66 H 67 H (7-56) U/L Alkaline Phosphatase 67 66 (38-133) U/L Lactate Dehydrogenase 1366 H (333-699) U/L Total Creatine Kinase 9870 H (35-230) U/L CK-MB (CK-2) 29.8 H (0.0-3.6) ng/mL CK-MB (CK-2) % 0.3 L (2.5-3.0) % Troponin I 0.05 ng/mL Total Protein 5.7 L 5.4 L (5.8-8.3) g/dL Albumin 3.1 2.9 L (3.0-4.8) g/dL Globulin 2.6 2.4 gm/dL Albumin/Globulin Ratio 1.2 1.2 (1.1-1.8) Arterial Blood Potassium (3.6-5.2) mmol/L Venous Blood Potassium 3.6 (3.6-5.2) mmol/L Urine Color (YELLOW) Urine Appearance (CLEAR) Urine pH (4.7-8.0) Ur Specific [place] (1.005-1.035) Urine Protein (<30 mg/dL) mg/dL Urine Glucose (UA) (NEGATIVE) mg/dL Urine Ketones (NEGATIVE) mg/dL Urine Blood (NEGATIVE) Urine Nitrate (NEGATIVE) Urine Bilirubin (NEGATIVE) Urine Urobilinogen (<1 E.U./dL) E.U./dL Ur Leukocyte Esterase (NEGATIVE) Goyo/uL Urine RBC (0-2) /hpf Urine WBC (0-6) /hpf Ur Epithelial Cells (0-5) /hpf Urine Bacteria (NEG) Vancomycin Trough 8.5 (5.0-10.0) ug/mL Urine Opiates Screen (NEGATIVE) Urine Methadone Screen (NEGATIVE) Ur Barbiturates Screen (NEGATIVE) Ur Phencyclidine Scrn (NEGATIVE) Ur Amphetamines Screen (NEGATIVE) U Benzodiazepines Scrn (NEGATIVE) U Oth Cocaine Metabols (NEGATIVE) U Cannabinoids Screen (NEGATIVE) 09/03/16 09/03/16 09/03/16 Range/Units 04:10 03:03 01:56 WBC (4.5-11.0) 10^3/ul RBC (3.5-6.1) 10^6/uL Hgb (14.0-18.0) gm/dL Hct (42.0-52.0) % MCV (80.0-105.0) fL MCH (25.0-35.0) pg MCHC (31.0-37.0) g/dl RDW (11.5-14.5) % Plt Count (120.0-450.0) 10^3/uL MPV (7.0-11.0) fl PT (9.9-11.8) Seconds INR (0.93-1.08) pCO2 (35-45) mm/Hg pO2 (30-55) mm/Hg HCO3 (21-28) mmol/L ABG pH (7.35-7.45) ABG Total CO2 (22-28) mmol.L ABG O2 Saturation (95-98) % ABG O2 Content (15-23) ML/dl ABG Base Excess (-2.0-3.0) mmol/L ABG Hemoglobin (11.7-17.4) g/dL ABG Carboxyhemoglobin (0.5-1.5) % POC ABG HHb (Measured) (0-5) % ABG Methemoglobin (0.0-3.0) % ABG O2 Capacity (16-24) mL/dl ABG Potassium (3.6-5.2) mmol/L VBG pH (7.32-7.43) VBG pCO2 (40-60) VBG HCO3 (21-28) mmol/l VBG Total CO2 (22-28) mmol.L VBG O2 Sat (Calc) (40-65) % VBG Base Excess (0.0-2.0) mmol/L VBG Potassium (3.6-5.2) mmol/L Hgb O2 Saturation (95.0-98.0) % Glucose (75-110) mg/dl Lactate (0.7-2.1) mmol/L Mechanical Rate FiO2 % Tidal Volume PEEP Sodium (132-148) mmol/L Potassium (3.6-5.0) mmol/L Chloride (98-107) mmol/L Carbon Dioxide (21-33) mmol/L Anion Gap (10-20) BUN (7-21) mg/dL Creatinine (0.5-1.4) mg/dL Est GFR ( Amer) Est GFR (Non-Af Amer) POC Glucose (mg/dL) 215 H 254 H 212 H (65-110) mg/dL Random Glucose (70-110) mg/dL Lactic Acid (0.7-2.1) mmol/L Calcium (8.4-10.5) mg/dL Phosphorus (2.5-4.5) mg/dL Magnesium (1.7-2.2) mg/dL Total Bilirubin (0.2-1.3) mg/dL AST (15-59) U/L ALT (7-56) U/L Alkaline Phosphatase (38-133) U/L Lactate Dehydrogenase (333-699) U/L Total Creatine Kinase (35-230) U/L CK-MB (CK-2) (0.0-3.6) ng/mL CK-MB (CK-2) % (2.5-3.0) % Troponin I ng/mL Total Protein (5.8-8.3) g/dL Albumin (3.0-4.8) g/dL Globulin gm/dL Albumin/Globulin Ratio (1.1-1.8) Arterial Blood Potassium (3.6-5.2) mmol/L Venous Blood Potassium (3.6-5.2) mmol/L Urine Color (YELLOW) Urine Appearance (CLEAR) Urine pH (4.7-8.0) Ur Specific [place] (1.005-1.035) Urine Protein (<30 mg/dL) mg/dL Urine Glucose (UA) (NEGATIVE) mg/dL Urine Ketones (NEGATIVE) mg/dL Urine Blood (NEGATIVE) Urine Nitrate (NEGATIVE) Urine Bilirubin (NEGATIVE) Urine Urobilinogen (<1 E.U./dL) E.U./dL Ur Leukocyte Esterase (NEGATIVE) Goyo/uL Urine RBC (0-2) /hpf Urine WBC (0-6) /hpf Ur Epithelial Cells (0-5) /hpf Urine Bacteria (NEG) Vancomycin Trough (5.0-10.0) ug/mL Urine Opiates Screen (NEGATIVE) Urine Methadone Screen (NEGATIVE) Ur Barbiturates Screen (NEGATIVE) Ur Phencyclidine Scrn (NEGATIVE) Ur Amphetamines Screen (NEGATIVE) U Benzodiazepines Scrn (NEGATIVE) U Oth Cocaine Metabols (NEGATIVE) U Cannabinoids Screen (NEGATIVE) 09/03/16 09/02/16 09/02/16 Range/Units 00:35 23:00 21:57 WBC (4.5-11.0) 10^3/ul RBC (3.5-6.1) 10^6/uL Hgb (14.0-18.0) gm/dL Hct (42.0-52.0) % MCV (80.0-105.0) fL MCH (25.0-35.0) pg MCHC (31.0-37.0) g/dl RDW (11.5-14.5) % Plt Count (120.0-450.0) 10^3/uL MPV (7.0-11.0) fl PT (9.9-11.8) Seconds INR (0.93-1.08) pCO2 (35-45) mm/Hg pO2 (30-55) mm/Hg HCO3 (21-28) mmol/L ABG pH (7.35-7.45) ABG Total CO2 (22-28) mmol.L ABG O2 Saturation (95-98) % ABG O2 Content (15-23) ML/dl ABG Base Excess (-2.0-3.0) mmol/L ABG Hemoglobin (11.7-17.4) g/dL ABG Carboxyhemoglobin (0.5-1.5) % POC ABG HHb (Measured) (0-5) % ABG Methemoglobin (0.0-3.0) % ABG O2 Capacity (16-24) mL/dl ABG Potassium (3.6-5.2) mmol/L VBG pH (7.32-7.43) VBG pCO2 (40-60) VBG HCO3 (21-28) mmol/l VBG Total CO2 (22-28) mmol.L VBG O2 Sat (Calc) (40-65) % VBG Base Excess (0.0-2.0) mmol/L VBG Potassium (3.6-5.2) mmol/L Hgb O2 Saturation (95.0-98.0) % Glucose (75-110) mg/dl Lactate (0.7-2.1) mmol/L Mechanical Rate FiO2 % Tidal Volume PEEP Sodium 144 (132-148) mmol/L Potassium 3.6 (3.6-5.0) mmol/L Chloride 111 H (98-107) mmol/L Carbon Dioxide 25 (21-33) mmol/L Anion Gap 12 (10-20) BUN 56 H (7-21) mg/dL Creatinine 1.9 H (0.5-1.4) mg/dL Est GFR ( Amer) 45 Est GFR (Non-Af Amer) 37 POC Glucose (mg/dL) 343 H 408 H* (65-110) mg/dL Random Glucose 261 H (70-110) mg/dL Lactic Acid 2.7 H (0.7-2.1) mmol/L Calcium 8.2 L (8.4-10.5) mg/dL Phosphorus (2.5-4.5) mg/dL Magnesium (1.7-2.2) mg/dL Total Bilirubin 0.8 (0.2-1.3) mg/dL AST 184 H (15-59) U/L ALT 64 H (7-56) U/L Alkaline Phosphatase 64 (38-133) U/L Lactate Dehydrogenase (333-699) U/L Total Creatine Kinase (35-230) U/L CK-MB (CK-2) (0.0-3.6) ng/mL CK-MB (CK-2) % (2.5-3.0) % Troponin I 0.05 ng/mL Total Protein 5.6 L (5.8-8.3) g/dL Albumin 3.2 (3.0-4.8) g/dL Globulin 2.4 gm/dL Albumin/Globulin Ratio 1.3 (1.1-1.8) Arterial Blood Potassium (3.6-5.2) mmol/L Venous Blood Potassium (3.6-5.2) mmol/L Urine Color (YELLOW) Urine Appearance (CLEAR) Urine pH (4.7-8.0) Ur Specific [place] (1.005-1.035) Urine Protein (<30 mg/dL) mg/dL Urine Glucose (UA) (NEGATIVE) mg/dL Urine Ketones (NEGATIVE) mg/dL Urine Blood (NEGATIVE) Urine Nitrate (NEGATIVE) Urine Bilirubin (NEGATIVE) Urine Urobilinogen (<1 E.U./dL) E.U./dL Ur Leukocyte Esterase (NEGATIVE) Goyo/uL Urine RBC (0-2) /hpf Urine WBC (0-6) /hpf Ur Epithelial Cells (0-5) /hpf Urine Bacteria (NEG) Vancomycin Trough (5.0-10.0) ug/mL Urine Opiates Screen (NEGATIVE) Urine Methadone Screen (NEGATIVE) Ur Barbiturates Screen (NEGATIVE) Ur Phencyclidine Scrn (NEGATIVE) Ur Amphetamines Screen (NEGATIVE) U Benzodiazepines Scrn (NEGATIVE) U Oth Cocaine Metabols (NEGATIVE) U Cannabinoids Screen (NEGATIVE) 09/02/16 09/02/16 09/02/16 Range/Units 21:45 21:04 20:00 WBC (4.5-11.0) 10^3/ul RBC (3.5-6.1) 10^6/uL Hgb (14.0-18.0) gm/dL Hct (42.0-52.0) % MCV (80.0-105.0) fL MCH (25.0-35.0) pg MCHC (31.0-37.0) g/dl RDW (11.5-14.5) % Plt Count (120.0-450.0) 10^3/uL MPV (7.0-11.0) fl PT (9.9-11.8) Seconds INR (0.93-1.08) pCO2 29 L (35-45) mm/Hg pO2 520.0 H 105 H (30-55) mm/Hg HCO3 15.3 L (21-28) mmol/L ABG pH 7.33 L (7.35-7.45) ABG Total CO2 16.2 L (22-28) mmol.L ABG O2 Saturation 99.6 H (95-98) % ABG O2 Content (15-23) ML/dl ABG Base Excess -9.2 L (-2.0-3.0) mmol/L ABG Hemoglobin (11.7-17.4) g/dL ABG Carboxyhemoglobin (0.5-1.5) % POC ABG HHb (Measured) (0-5) % ABG Methemoglobin (0.0-3.0) % ABG O2 Capacity (16-24) mL/dl ABG Potassium 3.9 (3.6-5.2) mmol/L VBG pH 7.15 L* (7.32-7.43) VBG pCO2 32.0 L (40-60) VBG HCO3 11.1 L (21-28) mmol/l VBG Total CO2 12.1 L (22-28) mmol.L VBG O2 Sat (Calc) 99.1 H (40-65) % VBG Base Excess -16.6 L (0.0-2.0) mmol/L VBG Potassium 4.5 (3.6-5.2) mmol/L Hgb O2 Saturation (95.0-98.0) % Glucose 459 H* D 623 H* (75-110) mg/dl Lactate 2.3 H 3.4 H (0.7-2.1) mmol/L Mechanical Rate 22 FiO2 100.0 21.0 % Tidal Volume 450 PEEP 5 Sodium 142.0 141.0 (132-148) mmol/L Potassium 4.5 (3.6-5.0) mmol/L Chloride 116.0 H 110.0 H (98-107) mmol/L Carbon Dioxide 14 L (21-33) mmol/L Anion Gap 29 H (10-20) BUN 60 H (7-21) mg/dL Creatinine 2.9 H (0.5-1.4) mg/dL Est GFR ( Amer) 28 Est GFR (Non-Af Amer) 23 POC Glucose (mg/dL) 434 H* (65-110) mg/dL Random Glucose 602 H* D (70-110) mg/dL Lactic Acid (0.7-2.1) mmol/L Calcium 7.9 L (8.4-10.5) mg/dL Phosphorus (2.5-4.5) mg/dL Magnesium (1.7-2.2) mg/dL Total Bilirubin 0.8 (0.2-1.3) mg/dL AST 188 H (15-59) U/L ALT 57 H (7-56) U/L Alkaline Phosphatase 74 (38-133) U/L Lactate Dehydrogenase (333-699) U/L Total Creatine Kinase (35-230) U/L CK-MB (CK-2) (0.0-3.6) ng/mL CK-MB (CK-2) % (2.5-3.0) % Troponin I 0.06 ng/mL Total Protein 5.9 (5.8-8.3) g/dL Albumin 3.5 (3.0-4.8) g/dL Globulin 2.4 gm/dL Albumin/Globulin Ratio 1.5 (1.1-1.8) Arterial Blood Potassium 3.9 (3.6-5.2) mmol/L Venous Blood Potassium 4.5 (3.6-5.2) mmol/L Urine Color (YELLOW) Urine Appearance (CLEAR) Urine pH (4.7-8.0) Ur Specific [place] (1.005-1.035) Urine Protein (<30 mg/dL) mg/dL Urine Glucose (UA) (NEGATIVE) mg/dL Urine Ketones (NEGATIVE) mg/dL Urine Blood (NEGATIVE) Urine Nitrate (NEGATIVE) Urine Bilirubin (NEGATIVE) Urine Urobilinogen (<1 E.U./dL) E.U./dL Ur Leukocyte Esterase (NEGATIVE) Goyo/uL Urine RBC (0-2) /hpf Urine WBC (0-6) /hpf Ur Epithelial Cells (0-5) /hpf Urine Bacteria (NEG) Vancomycin Trough (5.0-10.0) ug/mL Urine Opiates Screen (NEGATIVE) Urine Methadone Screen (NEGATIVE) Ur Barbiturates Screen (NEGATIVE) Ur Phencyclidine Scrn (NEGATIVE) Ur Amphetamines Screen (NEGATIVE) U Benzodiazepines Scrn (NEGATIVE) U Oth Cocaine Metabols (NEGATIVE) U Cannabinoids Screen (NEGATIVE) 09/02/16 09/02/16 09/02/16 Range/Units 19:59 19:15 18:58 WBC (4.5-11.0) 10^3/ul RBC (3.5-6.1) 10^6/uL Hgb (14.0-18.0) gm/dL Hct (42.0-52.0) % MCV (80.0-105.0) fL MCH (25.0-35.0) pg MCHC (31.0-37.0) g/dl RDW (11.5-14.5) % Plt Count (120.0-450.0) 10^3/uL MPV (7.0-11.0) fl PT (9.9-11.8) Seconds INR (0.93-1.08) pCO2 (35-45) mm/Hg pO2 (30-55) mm/Hg HCO3 (21-28) mmol/L ABG pH (7.35-7.45) ABG Total CO2 (22-28) mmol.L ABG O2 Saturation (95-98) % ABG O2 Content (15-23) ML/dl ABG Base Excess (-2.0-3.0) mmol/L ABG Hemoglobin (11.7-17.4) g/dL ABG Carboxyhemoglobin (0.5-1.5) % POC ABG HHb (Measured) (0-5) % ABG Methemoglobin (0.0-3.0) % ABG O2 Capacity (16-24) mL/dl ABG Potassium (3.6-5.2) mmol/L VBG pH (7.32-7.43) VBG pCO2 (40-60) VBG HCO3 (21-28) mmol/l VBG Total CO2 (22-28) mmol.L VBG O2 Sat (Calc) (40-65) % VBG Base Excess (0.0-2.0) mmol/L VBG Potassium (3.6-5.2) mmol/L Hgb O2 Saturation (95.0-98.0) % Glucose (75-110) mg/dl Lactate (0.7-2.1) mmol/L Mechanical Rate FiO2 % Tidal Volume PEEP Sodium (132-148) mmol/L Potassium (3.6-5.0) mmol/L Chloride (98-107) mmol/L Carbon Dioxide (21-33) mmol/L Anion Gap (10-20) BUN (7-21) mg/dL Creatinine (0.5-1.4) mg/dL Est GFR ( Amer) Est GFR (Non-Af Amer) POC Glucose (mg/dL) 484 H* > 500 H* (65-110) mg/dL Random Glucose (70-110) mg/dL Lactic Acid (0.7-2.1) mmol/L Calcium (8.4-10.5) mg/dL Phosphorus (2.5-4.5) mg/dL Magnesium (1.7-2.2) mg/dL Total Bilirubin (0.2-1.3) mg/dL AST (15-59) U/L ALT (7-56) U/L Alkaline Phosphatase (38-133) U/L Lactate Dehydrogenase (333-699) U/L Total Creatine Kinase (35-230) U/L CK-MB (CK-2) (0.0-3.6) ng/mL CK-MB (CK-2) % (2.5-3.0) % Troponin I ng/mL Total Protein (5.8-8.3) g/dL Albumin (3.0-4.8) g/dL Globulin gm/dL Albumin/Globulin Ratio (1.1-1.8) Arterial Blood Potassium (3.6-5.2) mmol/L Venous Blood Potassium (3.6-5.2) mmol/L Urine Color Yellow (YELLOW) Urine Appearance Sl cloudy (CLEAR) Urine pH 5.0 (4.7-8.0) Ur Specific [place] 1.020 (1.005-1.035) Urine Protein 30 H (<30 mg/dL) mg/dL Urine Glucose (UA) >=1000 (NEGATIVE) mg/dL Urine Ketones >=80 (NEGATIVE) mg/dL Urine Blood Large H (NEGATIVE) Urine Nitrate Negative (NEGATIVE) Urine Bilirubin Negative (NEGATIVE) Urine Urobilinogen 0.2 (<1 E.U./dL) E.U./dL Ur Leukocyte Esterase Negative (NEGATIVE) Goyo/uL Urine RBC 15 - 20 (0-2) /hpf Urine WBC 0 - 2 (0-6) /hpf Ur Epithelial Cells 0 - 2 (0-5) /hpf Urine Bacteria Few (NEG) Vancomycin Trough (5.0-10.0) ug/mL Urine Opiates Screen Negative (NEGATIVE) Urine Methadone Screen Negative (NEGATIVE) Ur Barbiturates Screen Negative (NEGATIVE) Ur Phencyclidine Scrn Negative (NEGATIVE) Ur Amphetamines Screen Negative (NEGATIVE) U Benzodiazepines Scrn Negative (NEGATIVE) U Oth Cocaine Metabols Negative (NEGATIVE) U Cannabinoids Screen Negative (NEGATIVE) Laboratory Results - last 24 hr 09/02/16 09/02/16 09/02/16 18:58 19:15 19:59 WBC RBC Hgb Hct MCV MCH MCHC RDW Plt Count MPV PT INR pCO2 pO2 HCO3 ABG pH ABG Total CO2 ABG O2 Saturation ABG O2 Content ABG Base Excess ABG Hemoglobin ABG Carboxyhemoglobin POC ABG HHb (Measured) ABG Methemoglobin ABG O2 Capacity ABG Potassium VBG pH VBG pCO2 VBG HCO3 VBG Total CO2 VBG O2 Sat (Calc) VBG Base Excess VBG Potassium Hgb O2 Saturation Sodium Chloride Glucose Lactate Mechanical Rate FiO2 Tidal Volume PEEP Potassium Carbon Dioxide Anion Gap BUN Creatinine Est GFR ( Amer) Est GFR (Non-Af Amer) POC Glucose (mg/dL) > 500 H* 484 H* Random Glucose Lactic Acid Calcium Phosphorus Magnesium Total Bilirubin AST ALT Alkaline Phosphatase Lactate Dehydrogenase Total Creatine Kinase CK-MB (CK-2) CK-MB (CK-2) % Troponin I Total Protein Albumin Globulin Albumin/Globulin Ratio Arterial Blood Potassium Venous Blood Potassium Urine Color Yellow Urine Appearance Sl cloudy Urine pH 5.0 Ur Specific [place] 1.020 Urine Protein 30 H Urine Glucose (UA) >=1000 Urine Ketones >=80 Urine Blood Large H Urine Nitrate Negative Urine Bilirubin Negative Urine Urobilinogen 0.2 Ur Leukocyte Esterase Negative Urine RBC 15 - 20 Urine WBC 0 - 2 Ur Epithelial Cells 0 - 2 Urine Bacteria Few Vancomycin Trough Urine Opiates Screen Negative Urine Methadone Screen Negative Ur Barbiturates Screen Negative Ur Phencyclidine Scrn Negative Ur Amphetamines Screen Negative U Benzodiazepines Scrn Negative U Oth Cocaine Metabols Negative U Cannabinoids Screen Negative 09/02/16 09/02/16 09/02/16 20:00 21:04 21:45 WBC RBC Hgb Hct MCV MCH MCHC RDW Plt Count MPV PT INR pCO2 29 L pO2 105 H 520.0 H HCO3 15.3 L ABG pH 7.33 L ABG Total CO2 16.2 L ABG O2 Saturation 99.6 H ABG O2 Content ABG Base Excess -9.2 L ABG Hemoglobin ABG Carboxyhemoglobin POC ABG HHb (Measured) ABG Methemoglobin ABG O2 Capacity ABG Potassium 3.9 VBG pH 7.15 L* VBG pCO2 32.0 L VBG HCO3 11.1 L VBG Total CO2 12.1 L VBG O2 Sat (Calc) 99.1 H VBG Base Excess -16.6 L VBG Potassium 4.5 Hgb O2 Saturation Sodium 143 142.0 Chloride 105 116.0 H Glucose 623 H* 459 H* D Lactate 3.4 H 2.3 H Mechanical Rate 22 FiO2 21.0 100.0 Tidal Volume 450 PEEP 5 Potassium 4.5 Carbon Dioxide 14 L Anion Gap 29 H BUN 60 H Creatinine 2.9 H Est GFR ( Amer) 28 Est GFR (Non-Af Amer) 23 POC Glucose (mg/dL) 434 H* Random Glucose 602 H* D Lactic Acid Calcium 7.9 L Phosphorus Magnesium Total Bilirubin 0.8 AST 188 H ALT 57 H Alkaline Phosphatase 74 Lactate Dehydrogenase Total Creatine Kinase CK-MB (CK-2) CK-MB (CK-2) % Troponin I 0.06 Total Protein 5.9 Albumin 3.5 Globulin 2.4 Albumin/Globulin Ratio 1.5 Arterial Blood Potassium 3.9 Venous Blood Potassium 4.5 Urine Color Urine Appearance Urine pH Ur Specific [place] Urine Protein Urine Glucose (UA) Urine Ketones Urine Blood Urine Nitrate Urine Bilirubin Urine Urobilinogen Ur Leukocyte Esterase Urine RBC Urine WBC Ur Epithelial Cells Urine Bacteria Vancomycin Trough Urine Opiates Screen Urine Methadone Screen Ur Barbiturates Screen Ur Phencyclidine Scrn Ur Amphetamines Screen U Benzodiazepines Scrn U Oth Cocaine Metabols U Cannabinoids Screen 09/02/16 09/02/16 09/03/16 21:57 23:00 00:35 WBC RBC Hgb Hct MCV MCH MCHC RDW Plt Count MPV PT INR pCO2 pO2 HCO3 ABG pH ABG Total CO2 ABG O2 Saturation ABG O2 Content ABG Base Excess ABG Hemoglobin ABG Carboxyhemoglobin POC ABG HHb (Measured) ABG Methemoglobin ABG O2 Capacity ABG Potassium VBG pH VBG pCO2 VBG HCO3 VBG Total CO2 VBG O2 Sat (Calc) VBG Base Excess VBG Potassium Hgb O2 Saturation Sodium 144 Chloride 111 H Glucose Lactate Mechanical Rate FiO2 Tidal Volume PEEP Potassium 3.6 Carbon Dioxide 25 Anion Gap 12 BUN 56 H Creatinine 1.9 H Est GFR ( Amer) 45 Est GFR (Non-Af Amer) 37 POC Glucose (mg/dL) 408 H* 343 H Random Glucose 261 H Lactic Acid 2.7 H Calcium 8.2 L Phosphorus Magnesium Total Bilirubin 0.8 AST 184 H ALT 64 H Alkaline Phosphatase 64 Lactate Dehydrogenase Total Creatine Kinase CK-MB (CK-2) CK-MB (CK-2) % Troponin I 0.05 Total Protein 5.6 L Albumin 3.2 Globulin 2.4 Albumin/Globulin Ratio 1.3 Arterial Blood Potassium Venous Blood Potassium Urine Color Urine Appearance Urine pH Ur Specific [place] Urine Protein Urine Glucose (UA) Urine Ketones Urine Blood Urine Nitrate Urine Bilirubin Urine Urobilinogen Ur Leukocyte Esterase Urine RBC Urine WBC Ur Epithelial Cells Urine Bacteria Vancomycin Trough Urine Opiates Screen Urine Methadone Screen Ur Barbiturates Screen Ur Phencyclidine Scrn Ur Amphetamines Screen U Benzodiazepines Scrn U Oth Cocaine Metabols U Cannabinoids Screen 09/03/16 09/03/16 09/03/16 01:56 03:03 04:10 WBC RBC Hgb Hct MCV MCH MCHC RDW Plt Count MPV PT INR pCO2 pO2 HCO3 ABG pH ABG Total CO2 ABG O2 Saturation ABG O2 Content ABG Base Excess ABG Hemoglobin ABG Carboxyhemoglobin POC ABG HHb (Measured) ABG Methemoglobin ABG O2 Capacity ABG Potassium VBG pH VBG pCO2 VBG HCO3 VBG Total CO2 VBG O2 Sat (Calc) VBG Base Excess VBG Potassium Hgb O2 Saturation Sodium Chloride Glucose Lactate Mechanical Rate FiO2 Tidal Volume PEEP Potassium Carbon Dioxide Anion Gap BUN Creatinine Est GFR ( Amer) Est GFR (Non-Af Amer) POC Glucose (mg/dL) 212 H 254 H 215 H Random Glucose Lactic Acid Calcium Phosphorus Magnesium Total Bilirubin AST ALT Alkaline Phosphatase Lactate Dehydrogenase Total Creatine Kinase CK-MB (CK-2) CK-MB (CK-2) % Troponin I Total Protein Albumin Globulin Albumin/Globulin Ratio Arterial Blood Potassium Venous Blood Potassium Urine Color Urine Appearance Urine pH Ur Specific [place] Urine Protein Urine Glucose (UA) Urine Ketones Urine Blood Urine Nitrate Urine Bilirubin Urine Urobilinogen Ur Leukocyte Esterase Urine RBC Urine WBC Ur Epithelial Cells Urine Bacteria Vancomycin Trough Urine Opiates Screen Urine Methadone Screen Ur Barbiturates Screen Ur Phencyclidine Scrn Ur Amphetamines Screen U Benzodiazepines Scrn U Oth Cocaine Metabols U Cannabinoids Screen 09/03/16 09/03/16 09/03/16 05:00 05:30 07:45 WBC 16.7 H D RBC 4.32 Hgb 13.1 L Hct 35.9 L MCV 83.1 MCH 30.3 MCHC 36.5 RDW 12.5 Plt Count 310 MPV 10.0 PT 14.3 H INR 1.32 H pCO2 31 L pO2 179.0 H 156 H HCO3 23.1 ABG pH 7.48 H ABG Total CO2 24.1 ABG O2 Saturation 99.3 H ABG O2 Content 18.8 ABG Base Excess 0.4 ABG Hemoglobin 13.5 ABG Carboxyhemoglobin 1.4 POC ABG HHb (Measured) 0.7 ABG Methemoglobin 0.8 ABG O2 Capacity 18.9 ABG Potassium VBG pH 7.50 H VBG pCO2 30.0 L VBG HCO3 23.4 VBG Total CO2 24.3 VBG O2 Sat (Calc) 99.5 H VBG Base Excess 1.1 VBG Potassium 3.6 Hgb O2 Saturation 97.1 Sodium 148 146 Chloride 114 H 114 H Glucose 195 H Lactate 1.3 Mechanical Rate FiO2 40.0 21.0 Tidal Volume PEEP Potassium 3.5 L 3.8 Carbon Dioxide 27 24 Anion Gap 11 12 BUN 48 H 45 H Creatinine 1.6 H 1.4 Est GFR ( Amer) 55 > 60 Est GFR (Non-Af Amer) 45 53 POC Glucose (mg/dL) Random Glucose 220 H 188 H Lactic Acid 1.5 Calcium 8.1 L 7.9 L Phosphorus 2.0 L Magnesium 2.2 Total Bilirubin 0.5 0.6 AST 184 H 171 H ALT 67 H 66 H Alkaline Phosphatase 66 67 Lactate Dehydrogenase 1366 H Total Creatine Kinase 9870 H CK-MB (CK-2) 29.8 H CK-MB (CK-2) % 0.3 L Troponin I 0.05 Total Protein 5.4 L 5.7 L Albumin 2.9 L 3.1 Globulin 2.4 2.6 Albumin/Globulin Ratio 1.2 1.2 Arterial Blood Potassium Venous Blood Potassium 3.6 Urine Color Urine Appearance Urine pH Ur Specific [place] Urine Protein Urine Glucose (UA) Urine Ketones Urine Blood Urine Nitrate Urine Bilirubin Urine Urobilinogen Ur Leukocyte Esterase Urine RBC Urine WBC Ur Epithelial Cells Urine Bacteria Vancomycin Trough 8.5 Urine Opiates Screen Urine Methadone Screen Ur Barbiturates Screen Ur Phencyclidine Scrn Ur Amphetamines Screen U Benzodiazepines Scrn U Oth Cocaine Metabols U Cannabinoids Screen Fingerstick Blood Sugar Results: 187 Review of Systems - Review of Systems Systems not reviewed;Unavailable: Intubated Critical Care Progress Note - Ventilator Checklist PUD Prophalyxis: Yes DVT Prophylaxis: Yes - Vent Settings MODE:: PRVC Assessment/Plan - Assessment and Plan (Free Text) Assessment: 56 yo M w h/o DM1, HTN, HLD, bicuspid aortic valve found unresponsive at home admitted to ICU in DKA, sepsis, encephalopathy, rhabdomyolysis, CHANTEL, electrolyte abnormalities Plan: Neuro: Obtunded. Unresponsive likely 2/2 metabolic/septic encephalopathy CT head showed no acute intracranial findings Will take off propofol. Precedex PRN agitation. Pulm: PRVC 450/22/100/5. Titrate to maintain SpO2>90, PaO2>60. Protective lung ventilation strategy. HOB >35 degrees. Aspiration precautions. Will try pressure support for possible extubation later today Daily ABGs and CXR while intubated CV: will obtain 2D ECHO to assess LV function. Troponins were trended and were negative x4 GI: GI ppx. NPO. OGT Transaminitis slowly improving Continue to monitor Endo: DKA with pH 7.02 on ABG. Anion gap closed. Last pH 7.48 on ABG this AM. Continue D5/1/2NS 20meq KCl @150cc/hr. Off Insulin gtt. Hb A1C 7.9. Will obtain endocrinology consult. Recs appreciated. Will need insulin pump evaluated. Renal: CHANTEL likely 2/2 rhabdo +/- sepsis +/- dehydration - resolved. Continue to monitor renal function. I&Os Significant hyperkalemia 7.7 at admission likely 2/2 rhabdo - resolved. Continue to monitor Renal US unremarkable ID: Leukocytosis improved 16.7 from 26.8 at admission. s/p Zosyn x1 in ER, Vanc x1. Continue Cefepime and Flagyl. Blood and urine cultures pending. Procalcitonin elevated at 5.85. Lactic acidosis resolved 1.5 [address] Will obtain [address] A/P with PO contrast to r/o intra-abdominal infection and evaluate insulin pump Heme: Hb 13.1, likely dilutional. No signs of bleeding. Continue to monitor DVT/GI ppx: NPO, Protonix, SQH. - Date & Time Date: 09/03/16 Time: 14:36 <Dominic QUESADA,Rea H - Last Filed: 09/03/16 15:43> CCU Objective - Vital Signs / Intake & Output Vital Signs (Last 4 hours): Vital Signs Temp Pulse Resp BP Pulse Ox 09/03/16 14:00 100.6 F H 107 H 22 158/91 H 100 09/03/16 13:00 114 H 20 156/93 H 100 09/03/16 12:00 100.4 F H 115 H 24 152/86 H 100 Intake and Output (Last 8hrs): Intake & Output 09/03/16 09/03/16 09/03/16 06:59 14:59 22:59 Intake Total 2723 Output Total 1401 Balance 1322 Intake: IV 2723 Right Femoral 550 Left Antecubital 2100 Right Antecubital 73 Output: Urine 1400 Urethral (Bacon) 1400 Stool 1 Other: Voiding Method Indwelling Catheter - Medications Active Medications: Active Medications Generic Name Dose Route Start Last Admin Trade Name Freq PRN Reason Stop Dose Admin Heparin Sodium (Porcine) 5,000 units 09/03/16 01:45 09/03/16 14:58 Heparin SC 5,000 units Q8 BECKY Administration Protocol Cefepime HCl 100 mls @ 100 mls/hr 09/02/16 22:00 09/03/16 10:56 Maxipime 1gm IVPB 100 mls/hr Q12 BECKY Administration Protocol Metronidazole 100 mls @ 100 mls/hr 09/02/16 22:00 09/03/16 14:57 Flagyl IVPB 100 mls/hr Q8 BECKY Administration Protocol Potassium Chloride 20 meq/ 1,010 mls @ 150 mls/hr 09/03/16 01:30 09/03/16 09:00 Dextrose/Sodium Chloride IV 150 mls/hr .[id number] BECKY Administration Dexmedetomidine HCl 100 mls @ 3.86 mls/hr 09/03/16 12:29 09/03/16 13:01 Precedex 4 Mcg/Ml (100 Ml) IV 3.86 mls/hr .Q24H PRN Administration Agitation Protocol 0.2 MCG/KG/HR Insulin Detemir 20 unit 09/03/16 22:00 Levemir SC HS BECKY Insulin Human Lispro 0 units 09/03/16 12:15 09/03/16 12:35 Humalog SC 1 units Q4H BECKY Administration Protocol Pantoprazole Sodium 40 mg 09/03/16 10:00 09/03/16 10:56 Protonix Inj IVP 40 mg DAILY BECKY Administration - Patient Studies Lab Studies: Lab Studies 09/03/16 09/03/16 09/03/16 Range/Units 14:00 07:45 05:30 WBC 16.7 H D (4.5-11.0) 10^3/ul RBC 4.32 (3.5-6.1) 10^6/uL Hgb 13.1 L (14.0-18.0) gm/dL Hct 35.9 L (42.0-52.0) % MCV 83.1 (80.0-105.0) fL MCH 30.3 (25.0-35.0) pg MCHC 36.5 (31.0-37.0) g/dl RDW 12.5 (11.5-14.5) % Plt Count 310 (120.0-450.0) 10^3/uL MPV 10.0 (7.0-11.0) fl PT 14.3 H (9.9-11.8) Seconds INR 1.32 H (0.93-1.08) pCO2 (35-45) mm/Hg pO2 156 H (30-55) mm/Hg HCO3 (21-28) mmol/L ABG pH (7.35-7.45) ABG Total CO2 (22-28) mmol.L ABG O2 Saturation (95-98) % ABG O2 Content (15-23) ML/dl ABG Base Excess (-2.0-3.0) mmol/L ABG Hemoglobin (11.7-17.4) g/dL ABG Carboxyhemoglobin (0.5-1.5) % POC ABG HHb (Measured) (0-5) % ABG Methemoglobin (0.0-3.0) % ABG O2 Capacity (16-24) mL/dl ABG Potassium (3.6-5.2) mmol/L VBG pH 7.50 H (7.32-7.43) VBG pCO2 30.0 L (40-60) VBG HCO3 23.4 (21-28) mmol/l VBG Total CO2 24.3 (22-28) mmol.L VBG O2 Sat (Calc) 99.5 H (40-65) % VBG Base Excess 1.1 (0.0-2.0) mmol/L VBG Potassium 3.6 (3.6-5.2) mmol/L Hgb O2 Saturation (95.0-98.0) % Glucose 195 H (75-110) mg/dl Lactate 1.3 (0.7-2.1) mmol/L Mechanical Rate FiO2 21.0 % Tidal Volume PEEP Sodium 147 147.0 148 (132-148) mmol/L Potassium 4.2 3.8 3.5 L (3.6-5.0) mmol/L Chloride 113 H 121.0 H 114 H (98-107) mmol/L Carbon Dioxide 25 24 27 (21-33) mmol/L Anion Gap 13 12 11 (10-20) BUN 35 H 45 H 48 H (7-21) mg/dL Creatinine 1.3 1.4 1.6 H (0.5-1.4) mg/dL Est GFR ( Amer) > 60 > 60 55 Est GFR (Non-Af Amer) 58 53 45 POC Glucose (mg/dL) (65-110) mg/dL Random Glucose 301 H* D 188 H 220 H (70-110) mg/dL Hemoglobin A1c 7.9 H (4.2-6.5) % Lactic Acid 1.5 (0.7-2.1) mmol/L Calcium 8.0 L 7.9 L 8.1 L (8.4-10.5) mg/dL Phosphorus 2.0 L (2.5-4.5) mg/dL Magnesium 2.2 (1.7-2.2) mg/dL Total Bilirubin 0.7 0.6 0.5 (0.2-1.3) mg/dL AST 166 H 171 H 184 H (15-59) U/L ALT 68 H 66 H 67 H (7-56) U/L Alkaline Phosphatase 68 67 66 (38-133) U/L Lactate Dehydrogenase 1366 H (333-699) U/L Total Creatine Kinase 9870 H (35-230) U/L CK-MB (CK-2) 29.8 H (0.0-3.6) ng/mL CK-MB (CK-2) % 0.3 L (2.5-3.0) % Troponin I 0.05 ng/mL Total Protein 5.2 L 5.7 L 5.4 L (5.8-8.3) g/dL Albumin 2.8 L 3.1 2.9 L (3.0-4.8) g/dL Globulin 2.4 2.6 2.4 gm/dL Albumin/Globulin Ratio 1.2 1.2 1.2 (1.1-1.8) Arterial Blood Potassium (3.6-5.2) mmol/L Venous Blood Potassium 3.6 (3.6-5.2) mmol/L Urine Color (YELLOW) Urine Appearance (CLEAR) Urine pH (4.7-8.0) Ur Specific [place] (1.005-1.035) Urine Protein (<30 mg/dL) mg/dL Urine Glucose (UA) (NEGATIVE) mg/dL Urine Ketones (NEGATIVE) mg/dL Urine Blood (NEGATIVE) Urine Nitrate (NEGATIVE) Urine Bilirubin (NEGATIVE) Urine Urobilinogen (<1 E.U./dL) E.U./dL Ur Leukocyte Esterase (NEGATIVE) Goyo/uL Urine RBC (0-2) /hpf Urine WBC (0-6) /hpf Ur Epithelial Cells (0-5) /hpf Urine Bacteria (NEG) Vancomycin Trough 8.5 (5.0-10.0) ug/mL Urine Opiates Screen (NEGATIVE) Urine Methadone Screen (NEGATIVE) Ur Barbiturates Screen (NEGATIVE) Ur Phencyclidine Scrn (NEGATIVE) Ur Amphetamines Screen (NEGATIVE) U Benzodiazepines Scrn (NEGATIVE) U Oth Cocaine Metabols (NEGATIVE) U Cannabinoids Screen (NEGATIVE) 09/03/16 09/03/16 09/03/16 Range/Units 05:00 04:10 03:03 WBC (4.5-11.0) 10^3/ul RBC (3.5-6.1) 10^6/uL Hgb (14.0-18.0) gm/dL Hct (42.0-52.0) % MCV (80.0-105.0) fL MCH (25.0-35.0) pg MCHC (31.0-37.0) g/dl RDW (11.5-14.5) % Plt Count (120.0-450.0) 10^3/uL MPV (7.0-11.0) fl PT (9.9-11.8) Seconds INR (0.93-1.08) pCO2 31 L (35-45) mm/Hg pO2 179.0 H (30-55) mm/Hg HCO3 23.1 (21-28) mmol/L ABG pH 7.48 H (7.35-7.45) ABG Total CO2 24.1 (22-28) mmol.L ABG O2 Saturation 99.3 H (95-98) % ABG O2 Content 18.8 (15-23) ML/dl ABG Base Excess 0.4 (-2.0-3.0) mmol/L ABG Hemoglobin 13.5 (11.7-17.4) g/dL ABG Carboxyhemoglobin 1.4 (0.5-1.5) % POC ABG HHb (Measured) 0.7 (0-5) % ABG Methemoglobin 0.8 (0.0-3.0) % ABG O2 Capacity 18.9 (16-24) mL/dl ABG Potassium (3.6-5.2) mmol/L VBG pH (7.32-7.43) VBG pCO2 (40-60) VBG HCO3 (21-28) mmol/l VBG Total CO2 (22-28) mmol.L VBG O2 Sat (Calc) (40-65) % VBG Base Excess (0.0-2.0) mmol/L VBG Potassium (3.6-5.2) mmol/L Hgb O2 Saturation 97.1 (95.0-98.0) % Glucose (75-110) mg/dl Lactate (0.7-2.1) mmol/L Mechanical Rate FiO2 40.0 % Tidal Volume PEEP Sodium (132-148) mmol/L Potassium (3.6-5.0) mmol/L Chloride (98-107) mmol/L Carbon Dioxide (21-33) mmol/L Anion Gap (10-20) BUN (7-21) mg/dL Creatinine (0.5-1.4) mg/dL Est GFR ( Amer) Est GFR (Non-Af Amer) POC Glucose (mg/dL) 215 H 254 H (65-110) mg/dL Random Glucose (70-110) mg/dL Hemoglobin A1c (4.2-6.5) % Lactic Acid (0.7-2.1) mmol/L Calcium (8.4-10.5) mg/dL Phosphorus (2.5-4.5) mg/dL Magnesium (1.7-2.2) mg/dL Total Bilirubin (0.2-1.3) mg/dL AST (15-59) U/L ALT (7-56) U/L Alkaline Phosphatase (38-133) U/L Lactate Dehydrogenase (333-699) U/L Total Creatine Kinase (35-230) U/L CK-MB (CK-2) (0.0-3.6) ng/mL CK-MB (CK-2) % (2.5-3.0) % Troponin I ng/mL Total Protein (5.8-8.3) g/dL Albumin (3.0-4.8) g/dL Globulin gm/dL Albumin/Globulin Ratio (1.1-1.8) Arterial Blood Potassium (3.6-5.2) mmol/L Venous Blood Potassium (3.6-5.2) mmol/L Urine Color (YELLOW) Urine Appearance (CLEAR) Urine pH (4.7-8.0) Ur Specific [place] (1.005-1.035) Urine Protein (<30 mg/dL) mg/dL Urine Glucose (UA) (NEGATIVE) mg/dL Urine Ketones (NEGATIVE) mg/dL Urine Blood (NEGATIVE) Urine Nitrate (NEGATIVE) Urine Bilirubin (NEGATIVE) Urine Urobilinogen (<1 E.U./dL) E.U./dL Ur Leukocyte Esterase (NEGATIVE) Goyo/uL Urine RBC (0-2) /hpf Urine WBC (0-6) /hpf Ur Epithelial Cells (0-5) /hpf Urine Bacteria (NEG) Vancomycin Trough (5.0-10.0) ug/mL Urine Opiates Screen (NEGATIVE) Urine Methadone Screen (NEGATIVE) Ur Barbiturates Screen (NEGATIVE) Ur Phencyclidine Scrn (NEGATIVE) Ur Amphetamines Screen (NEGATIVE) U Benzodiazepines Scrn (NEGATIVE) U Oth Cocaine Metabols (NEGATIVE) U Cannabinoids Screen (NEGATIVE) 09/03/16 09/03/16 09/02/16 Range/Units 01:56 00:35 23:00 WBC (4.5-11.0) 10^3/ul RBC (3.5-6.1) 10^6/uL Hgb (14.0-18.0) gm/dL Hct (42.0-52.0) % MCV (80.0-105.0) fL MCH (25.0-35.0) pg MCHC (31.0-37.0) g/dl RDW (11.5-14.5) % Plt Count (120.0-450.0) 10^3/uL MPV (7.0-11.0) fl PT (9.9-11.8) Seconds INR (0.93-1.08) pCO2 (35-45) mm/Hg pO2 (30-55) mm/Hg HCO3 (21-28) mmol/L ABG pH (7.35-7.45) ABG Total CO2 (22-28) mmol.L ABG O2 Saturation (95-98) % ABG O2 Content (15-23) ML/dl ABG Base Excess (-2.0-3.0) mmol/L ABG Hemoglobin (11.7-17.4) g/dL ABG Carboxyhemoglobin (0.5-1.5) % POC ABG HHb (Measured) (0-5) % ABG Methemoglobin (0.0-3.0) % ABG O2 Capacity (16-24) mL/dl ABG Potassium (3.6-5.2) mmol/L VBG pH (7.32-7.43) VBG pCO2 (40-60) VBG HCO3 (21-28) mmol/l VBG Total CO2 (22-28) mmol.L VBG O2 Sat (Calc) (40-65) % VBG Base Excess (0.0-2.0) mmol/L VBG Potassium (3.6-5.2) mmol/L Hgb O2 Saturation (95.0-98.0) % Glucose (75-110) mg/dl Lactate (0.7-2.1) mmol/L Mechanical Rate FiO2 % Tidal Volume PEEP Sodium 144 (132-148) mmol/L Potassium 3.6 (3.6-5.0) mmol/L Chloride 111 H (98-107) mmol/L Carbon Dioxide 25 (21-33) mmol/L Anion Gap 12 (10-20) BUN 56 H (7-21) mg/dL Creatinine 1.9 H (0.5-1.4) mg/dL Est GFR ( Amer) 45 Est GFR (Non-Af Amer) 37 POC Glucose (mg/dL) 212 H 343 H (65-110) mg/dL Random Glucose 261 H (70-110) mg/dL Hemoglobin A1c (4.2-6.5) % Lactic Acid 2.7 H (0.7-2.1) mmol/L Calcium 8.2 L (8.4-10.5) mg/dL Phosphorus (2.5-4.5) mg/dL Magnesium (1.7-2.2) mg/dL Total Bilirubin 0.8 (0.2-1.3) mg/dL AST 184 H (15-59) U/L ALT 64 H (7-56) U/L Alkaline Phosphatase 64 (38-133) U/L Lactate Dehydrogenase (333-699) U/L Total Creatine Kinase (35-230) U/L CK-MB (CK-2) (0.0-3.6) ng/mL CK-MB (CK-2) % (2.5-3.0) % Troponin I 0.05 ng/mL Total Protein 5.6 L (5.8-8.3) g/dL Albumin 3.2 (3.0-4.8) g/dL Globulin 2.4 gm/dL Albumin/Globulin Ratio 1.3 (1.1-1.8) Arterial Blood Potassium (3.6-5.2) mmol/L Venous Blood Potassium (3.6-5.2) mmol/L Urine Color (YELLOW) Urine Appearance (CLEAR) Urine pH (4.7-8.0) Ur Specific [place] (1.005-1.035) Urine Protein (<30 mg/dL) mg/dL Urine Glucose (UA) (NEGATIVE) mg/dL Urine Ketones (NEGATIVE) mg/dL Urine Blood (NEGATIVE) Urine Nitrate (NEGATIVE) Urine Bilirubin (NEGATIVE) Urine Urobilinogen (<1 E.U./dL) E.U./dL Ur Leukocyte Esterase (NEGATIVE) Goyo/uL Urine RBC (0-2) /hpf Urine WBC (0-6) /hpf Ur Epithelial Cells (0-5) /hpf Urine Bacteria (NEG) Vancomycin Trough (5.0-10.0) ug/mL Urine Opiates Screen (NEGATIVE) Urine Methadone Screen (NEGATIVE) Ur Barbiturates Screen (NEGATIVE) Ur Phencyclidine Scrn (NEGATIVE) Ur Amphetamines Screen (NEGATIVE) U Benzodiazepines Scrn (NEGATIVE) U Oth Cocaine Metabols (NEGATIVE) U Cannabinoids Screen (NEGATIVE) 09/02/16 09/02/16 09/02/16 Range/Units 21:57 21:45 21:04 WBC (4.5-11.0) 10^3/ul RBC (3.5-6.1) 10^6/uL Hgb (14.0-18.0) gm/dL Hct (42.0-52.0) % MCV (80.0-105.0) fL MCH (25.0-35.0) pg MCHC (31.0-37.0) g/dl RDW (11.5-14.5) % Plt Count (120.0-450.0) 10^3/uL MPV (7.0-11.0) fl PT (9.9-11.8) Seconds INR (0.93-1.08) pCO2 29 L (35-45) mm/Hg pO2 520.0 H (30-55) mm/Hg HCO3 15.3 L (21-28) mmol/L ABG pH 7.33 L (7.35-7.45) ABG Total CO2 16.2 L (22-28) mmol.L ABG O2 Saturation 99.6 H (95-98) % ABG O2 Content (15-23) ML/dl ABG Base Excess -9.2 L (-2.0-3.0) mmol/L ABG Hemoglobin (11.7-17.4) g/dL ABG Carboxyhemoglobin (0.5-1.5) % POC ABG HHb (Measured) (0-5) % ABG Methemoglobin (0.0-3.0) % ABG O2 Capacity (16-24) mL/dl ABG Potassium 3.9 (3.6-5.2) mmol/L VBG pH (7.32-7.43) VBG pCO2 (40-60) VBG HCO3 (21-28) mmol/l VBG Total CO2 (22-28) mmol.L VBG O2 Sat (Calc) (40-65) % VBG Base Excess (0.0-2.0) mmol/L VBG Potassium (3.6-5.2) mmol/L Hgb O2 Saturation (95.0-98.0) % Glucose 459 H* D (75-110) mg/dl Lactate 2.3 H (0.7-2.1) mmol/L Mechanical Rate 22 FiO2 100.0 % Tidal Volume 450 PEEP 5 Sodium 142.0 (132-148) mmol/L Potassium (3.6-5.0) mmol/L Chloride 116.0 H (98-107) mmol/L Carbon Dioxide (21-33) mmol/L Anion Gap (10-20) BUN (7-21) mg/dL Creatinine (0.5-1.4) mg/dL Est GFR ( Amer) Est GFR (Non-Af Amer) POC Glucose (mg/dL) 408 H* 434 H* (65-110) mg/dL Random Glucose (70-110) mg/dL Hemoglobin A1c (4.2-6.5) % Lactic Acid (0.7-2.1) mmol/L Calcium (8.4-10.5) mg/dL Phosphorus (2.5-4.5) mg/dL Magnesium (1.7-2.2) mg/dL Total Bilirubin (0.2-1.3) mg/dL AST (15-59) U/L ALT (7-56) U/L Alkaline Phosphatase (38-133) U/L Lactate Dehydrogenase (333-699) U/L Total Creatine Kinase (35-230) U/L CK-MB (CK-2) (0.0-3.6) ng/mL CK-MB (CK-2) % (2.5-3.0) % Troponin I ng/mL Total Protein (5.8-8.3) g/dL Albumin (3.0-4.8) g/dL Globulin gm/dL Albumin/Globulin Ratio (1.1-1.8) Arterial Blood Potassium 3.9 (3.6-5.2) mmol/L Venous Blood Potassium (3.6-5.2) mmol/L Urine Color (YELLOW) Urine Appearance (CLEAR) Urine pH (4.7-8.0) Ur Specific [place] (1.005-1.035) Urine Protein (<30 mg/dL) mg/dL Urine Glucose (UA) (NEGATIVE) mg/dL Urine Ketones (NEGATIVE) mg/dL Urine Blood (NEGATIVE) Urine Nitrate (NEGATIVE) Urine Bilirubin (NEGATIVE) Urine Urobilinogen (<1 E.U./dL) E.U./dL Ur Leukocyte Esterase (NEGATIVE) Goyo/uL Urine RBC (0-2) /hpf Urine WBC (0-6) /hpf Ur Epithelial Cells (0-5) /hpf Urine Bacteria (NEG) Vancomycin Trough (5.0-10.0) ug/mL Urine Opiates Screen (NEGATIVE) Urine Methadone Screen (NEGATIVE) Ur Barbiturates Screen (NEGATIVE) Ur Phencyclidine Scrn (NEGATIVE) Ur Amphetamines Screen (NEGATIVE) U Benzodiazepines Scrn (NEGATIVE) U Oth Cocaine Metabols (NEGATIVE) U Cannabinoids Screen (NEGATIVE) 09/02/16 09/02/16 09/02/16 Range/Units 20:00 19:59 19:15 WBC (4.5-11.0) 10^3/ul RBC (3.5-6.1) 10^6/uL Hgb (14.0-18.0) gm/dL Hct (42.0-52.0) % MCV (80.0-105.0) fL MCH (25.0-35.0) pg MCHC (31.0-37.0) g/dl RDW (11.5-14.5) % Plt Count (120.0-450.0) 10^3/uL MPV (7.0-11.0) fl PT (9.9-11.8) Seconds INR (0.93-1.08) pCO2 (35-45) mm/Hg pO2 105 H (30-55) mm/Hg HCO3 (21-28) mmol/L ABG pH (7.35-7.45) ABG Total CO2 (22-28) mmol.L ABG O2 Saturation (95-98) % ABG O2 Content (15-23) ML/dl ABG Base Excess (-2.0-3.0) mmol/L ABG Hemoglobin (11.7-17.4) g/dL ABG Carboxyhemoglobin (0.5-1.5) % POC ABG HHb (Measured) (0-5) % ABG Methemoglobin (0.0-3.0) % ABG O2 Capacity (16-24) mL/dl ABG Potassium (3.6-5.2) mmol/L VBG pH 7.15 L* (7.32-7.43) VBG pCO2 32.0 L (40-60) VBG HCO3 11.1 L (21-28) mmol/l VBG Total CO2 12.1 L (22-28) mmol.L VBG O2 Sat (Calc) 99.1 H (40-65) % VBG Base Excess -16.6 L (0.0-2.0) mmol/L VBG Potassium 4.5 (3.6-5.2) mmol/L Hgb O2 Saturation (95.0-98.0) % Glucose 623 H* (75-110) mg/dl Lactate 3.4 H (0.7-2.1) mmol/L Mechanical Rate FiO2 21.0 % Tidal Volume PEEP Sodium 141.0 (132-148) mmol/L Potassium 4.5 (3.6-5.0) mmol/L Chloride 110.0 H (98-107) mmol/L Carbon Dioxide 14 L (21-33) mmol/L Anion Gap 29 H (10-20) BUN 60 H (7-21) mg/dL Creatinine 2.9 H (0.5-1.4) mg/dL Est GFR ( Amer) 28 Est GFR (Non-Af Amer) 23 POC Glucose (mg/dL) 484 H* (65-110) mg/dL Random Glucose 602 H* D (70-110) mg/dL Hemoglobin A1c (4.2-6.5) % Lactic Acid (0.7-2.1) mmol/L Calcium 7.9 L (8.4-10.5) mg/dL Phosphorus (2.5-4.5) mg/dL Magnesium (1.7-2.2) mg/dL Total Bilirubin 0.8 (0.2-1.3) mg/dL AST 188 H (15-59) U/L ALT 57 H (7-56) U/L Alkaline Phosphatase 74 (38-133) U/L Lactate Dehydrogenase (333-699) U/L Total Creatine Kinase (35-230) U/L CK-MB (CK-2) (0.0-3.6) ng/mL CK-MB (CK-2) % (2.5-3.0) % Troponin I 0.06 ng/mL Total Protein 5.9 (5.8-8.3) g/dL Albumin 3.5 (3.0-4.8) g/dL Globulin 2.4 gm/dL Albumin/Globulin Ratio 1.5 (1.1-1.8) Arterial Blood Potassium (3.6-5.2) mmol/L Venous Blood Potassium 4.5 (3.6-5.2) mmol/L Urine Color Yellow (YELLOW) Urine Appearance Sl cloudy (CLEAR) Urine pH 5.0 (4.7-8.0) Ur Specific [place] 1.020 (1.005-1.035) Urine Protein 30 H (<30 mg/dL) mg/dL Urine Glucose (UA) >=1000 (NEGATIVE) mg/dL Urine Ketones >=80 (NEGATIVE) mg/dL Urine Blood Large H (NEGATIVE) Urine Nitrate Negative (NEGATIVE) Urine Bilirubin Negative (NEGATIVE) Urine Urobilinogen 0.2 (<1 E.U./dL) E.U./dL Ur Leukocyte Esterase Negative (NEGATIVE) Goyo/uL Urine RBC 15 - 20 (0-2) /hpf Urine WBC 0 - 2 (0-6) /hpf Ur Epithelial Cells 0 - 2 (0-5) /hpf Urine Bacteria Few (NEG) Vancomycin Trough (5.0-10.0) ug/mL Urine Opiates Screen Negative (NEGATIVE) Urine Methadone Screen Negative (NEGATIVE) Ur Barbiturates Screen Negative (NEGATIVE) Ur Phencyclidine Scrn Negative (NEGATIVE) Ur Amphetamines Screen Negative (NEGATIVE) U Benzodiazepines Scrn Negative (NEGATIVE) U Oth Cocaine Metabols Negative (NEGATIVE) U Cannabinoids Screen Negative (NEGATIVE) 03/16/17 Range/Units 18:58 WBC (4.5-11.0) 10^3/ul RBC (3.5-6.1) 10^6/uL Hgb (14.0-18.0) gm/dL Hct (42.0-52.0) % MCV (80.0-105.0) fL MCH (25.0-35.0) pg MCHC (31.0-37.0) g/dl RDW (11.5-14.5) % Plt Count (120.0-450.0) 10^3/uL MPV (7.0-11.0) fl PT (9.9-11.8) Seconds INR (0.93-1.08) pCO2 (35-45) mm/Hg pO2 (30-55) mm/Hg HCO3 (21-28) mmol/L ABG pH (7.35-7.45) ABG Total CO2 (22-28) mmol.L ABG O2 Saturation (95-98) % ABG O2 Content (15-23) ML/dl ABG Base Excess (-2.0-3.0) mmol/L ABG Hemoglobin (11.7-17.4) g/dL ABG Carboxyhemoglobin (0.5-1.5) % POC ABG HHb (Measured) (0-5) % ABG Methemoglobin (0.0-3.0) % ABG O2 Capacity (16-24) mL/dl ABG Potassium (3.6-5.2) mmol/L VBG pH (7.32-7.43) VBG pCO2 (40-60) VBG HCO3 (21-28) mmol/l VBG Total CO2 (22-28) mmol.L VBG O2 Sat (Calc) (40-65) % VBG Base Excess (0.0-2.0) mmol/L VBG Potassium (3.6-5.2) mmol/L Hgb O2 Saturation (95.0-98.0) % Glucose (75-110) mg/dl Lactate (0.7-2.1) mmol/L Mechanical Rate FiO2 % Tidal Volume PEEP Sodium (132-148) mmol/L Potassium (3.6-5.0) mmol/L Chloride (98-107) mmol/L Carbon Dioxide (21-33) mmol/L Anion Gap (10-20) BUN (7-21) mg/dL Creatinine (0.5-1.4) mg/dL Est GFR ( Amer) Est GFR (Non-Af Amer) POC Glucose (mg/dL) > 500 H* (65-110) mg/dL Random Glucose (70-110) mg/dL Hemoglobin A1c (4.2-6.5) % Lactic Acid (0.7-2.1) mmol/L Calcium (8.4-10.5) mg/dL Phosphorus (2.5-4.5) mg/dL Magnesium (1.7-2.2) mg/dL Total Bilirubin (0.2-1.3) mg/dL AST (15-59) U/L ALT (7-56) U/L Alkaline Phosphatase (38-133) U/L Lactate Dehydrogenase (333-699) U/L Total Creatine Kinase (35-230) U/L CK-MB (CK-2) (0.0-3.6) ng/mL CK-MB (CK-2) % (2.5-3.0) % Troponin I ng/mL Total Protein (5.8-8.3) g/dL Albumin (3.0-4.8) g/dL Globulin gm/dL Albumin/Globulin Ratio (1.1-1.8) Arterial Blood Potassium (3.6-5.2) mmol/L Venous Blood Potassium (3.6-5.2) mmol/L Urine Color (YELLOW) Urine Appearance (CLEAR) Urine pH (4.7-8.0) Ur Specific [place] (1.005-1.035) Urine Protein (<30 mg/dL) mg/dL Urine Glucose (UA) (NEGATIVE) mg/dL Urine Ketones (NEGATIVE) mg/dL Urine Blood (NEGATIVE) Urine Nitrate (NEGATIVE) Urine Bilirubin (NEGATIVE) Urine Urobilinogen (<1 E.U./dL) E.U./dL Ur Leukocyte Esterase (NEGATIVE) [place]/uL Urine RBC (0-2) /hpf Urine WBC (0-6) /hpf Ur Epithelial Cells (0-5) /hpf Urine Bacteria (NEG) Vancomycin Trough (5.0-10.0) ug/mL Urine Opiates Screen (NEGATIVE) Urine Methadone Screen (NEGATIVE) Ur Barbiturates Screen (NEGATIVE) Ur Phencyclidine Scrn (NEGATIVE) Ur Amphetamines Screen (NEGATIVE) U Benzodiazepines Scrn (NEGATIVE) U Oth Cocaine Metabols (NEGATIVE) U Cannabinoids Screen (NEGATIVE) Laboratory Results - last 24 hr 09/02/16 09/02/16 09/02/16 18:58 19:15 19:59 WBC RBC Hgb Hct MCV MCH MCHC RDW Plt Count MPV PT INR pCO2 pO2 HCO3 ABG pH ABG Total CO2 ABG O2 Saturation ABG O2 Content ABG Base Excess ABG Hemoglobin ABG Carboxyhemoglobin POC ABG HHb (Measured) ABG Methemoglobin ABG O2 Capacity ABG Potassium VBG pH VBG pCO2 VBG HCO3 VBG Total CO2 VBG O2 Sat (Calc) VBG Base Excess VBG Potassium Hgb O2 Saturation Sodium Chloride Glucose Lactate Mechanical Rate FiO2 Tidal Volume PEEP Potassium Carbon Dioxide Anion Gap BUN Creatinine Est GFR ( Amer) Est GFR (Non-Af Amer) POC Glucose (mg/dL) > 500 H* 484 H* Random Glucose Hemoglobin A1c Lactic Acid Calcium Phosphorus Magnesium Total Bilirubin AST ALT Alkaline Phosphatase Lactate Dehydrogenase Total Creatine Kinase CK-MB (CK-2) CK-MB (CK-2) % Troponin I Total Protein Albumin Globulin Albumin/Globulin Ratio Arterial Blood Potassium Venous Blood Potassium Urine Color Yellow Urine Appearance Sl cloudy Urine pH 5.0 Ur Specific [place] 1.020 Urine Protein 30 H Urine Glucose (UA) >=1000 Urine Ketones >=80 Urine Blood Large H Urine Nitrate Negative Urine Bilirubin Negative Urine Urobilinogen 0.2 Ur Leukocyte Esterase Negative Urine RBC 15 - 20 Urine WBC 0 - 2 Ur Epithelial Cells 0 - 2 Urine Bacteria Few Vancomycin Trough Urine Opiates Screen Negative Urine Methadone Screen Negative Ur Barbiturates Screen Negative Ur Phencyclidine Scrn Negative Ur Amphetamines Screen Negative U Benzodiazepines Scrn Negative U Oth Cocaine Metabols Negative U Cannabinoids Screen Negative 09/02/16 09/02/16 09/02/16 20:00 21:04 21:45 WBC RBC Hgb Hct MCV MCH MCHC RDW Plt Count MPV PT INR pCO2 29 L pO2 105 H 520.0 H HCO3 15.3 L ABG pH 7.33 L ABG Total CO2 16.2 L ABG O2 Saturation 99.6 H ABG O2 Content ABG Base Excess -9.2 L ABG Hemoglobin ABG Carboxyhemoglobin POC ABG HHb (Measured) ABG Methemoglobin ABG O2 Capacity ABG Potassium 3.9 VBG pH 7.15 L* VBG pCO2 32.0 L VBG HCO3 11.1 L VBG Total CO2 12.1 L VBG O2 Sat (Calc) 99.1 H VBG Base Excess -16.6 L VBG Potassium 4.5 Hgb O2 Saturation Sodium 143 142.0 Chloride 105 116.0 H Glucose 623 H* 459 H* D Lactate 3.4 H 2.3 H Mechanical Rate 22 FiO2 21.0 100.0 Tidal Volume 450 PEEP 5 Potassium 4.5 Carbon Dioxide 14 L Anion Gap 29 H BUN 60 H Creatinine 2.9 H Est GFR ( Amer) 28 Est GFR (Non-Af Amer) 23 POC Glucose (mg/dL) 434 H* Random Glucose 602 H* D Hemoglobin A1c Lactic Acid Calcium 7.9 L Phosphorus Magnesium Total Bilirubin 0.8 AST 188 H ALT 57 H Alkaline Phosphatase 74 Lactate Dehydrogenase Total Creatine Kinase CK-MB (CK-2) CK-MB (CK-2) % Troponin I 0.06 Total Protein 5.9 Albumin 3.5 Globulin 2.4 Albumin/Globulin Ratio 1.5 Arterial Blood Potassium 3.9 Venous Blood Potassium 4.5 Urine Color Urine Appearance Urine pH Ur Specific [place] Urine Protein Urine Glucose (UA) Urine Ketones Urine Blood Urine Nitrate Urine Bilirubin Urine Urobilinogen Ur Leukocyte Esterase Urine RBC Urine WBC Ur Epithelial Cells Urine Bacteria Vancomycin Trough Urine Opiates Screen Urine Methadone Screen Ur Barbiturates Screen Ur Phencyclidine Scrn Ur Amphetamines Screen U Benzodiazepines Scrn U Oth Cocaine Metabols U Cannabinoids Screen 09/02/16 09/02/16 09/03/16 21:57 23:00 00:35 WBC RBC Hgb Hct MCV MCH MCHC RDW Plt Count MPV PT INR pCO2 pO2 HCO3 ABG pH ABG Total CO2 ABG O2 Saturation ABG O2 Content ABG Base Excess ABG Hemoglobin ABG Carboxyhemoglobin POC ABG HHb (Measured) ABG Methemoglobin ABG O2 Capacity ABG Potassium VBG pH VBG pCO2 VBG HCO3 VBG Total CO2 VBG O2 Sat (Calc) VBG Base Excess VBG Potassium Hgb O2 Saturation Sodium 144 Chloride 111 H Glucose Lactate Mechanical Rate FiO2 Tidal Volume PEEP Potassium 3.6 Carbon Dioxide 25 Anion Gap 12 BUN 56 H Creatinine 1.9 H Est GFR ( Amer) 45 Est GFR (Non-Af Amer) 37 POC Glucose (mg/dL) 408 H* 343 H Random Glucose 261 H Hemoglobin A1c Lactic Acid 2.7 H Calcium 8.2 L Phosphorus Magnesium Total Bilirubin 0.8 AST 184 H ALT 64 H Alkaline Phosphatase 64 Lactate Dehydrogenase Total Creatine Kinase CK-MB (CK-2) CK-MB (CK-2) % Troponin I 0.05 Total Protein 5.6 L Albumin 3.2 Globulin 2.4 Albumin/Globulin Ratio 1.3 Arterial Blood Potassium Venous Blood Potassium Urine Color Urine Appearance Urine pH Ur Specific [place] Urine Protein Urine Glucose (UA) Urine Ketones Urine Blood Urine Nitrate Urine Bilirubin Urine Urobilinogen Ur Leukocyte Esterase Urine RBC Urine WBC Ur Epithelial Cells Urine Bacteria Vancomycin Trough Urine Opiates Screen Urine Methadone Screen Ur Barbiturates Screen Ur Phencyclidine Scrn Ur Amphetamines Screen U Benzodiazepines Scrn U Oth Cocaine Metabols U Cannabinoids Screen 09/03/16 09/03/16 09/03/16 01:56 03:03 04:10 WBC RBC Hgb Hct MCV MCH MCHC RDW Plt Count MPV PT INR pCO2 pO2 HCO3 ABG pH ABG Total CO2 ABG O2 Saturation ABG O2 Content ABG Base Excess ABG Hemoglobin ABG Carboxyhemoglobin POC ABG HHb (Measured) ABG Methemoglobin ABG O2 Capacity ABG Potassium VBG pH VBG pCO2 VBG HCO3 VBG Total CO2 VBG O2 Sat (Calc) VBG Base Excess VBG Potassium Hgb O2 Saturation Sodium Chloride Glucose Lactate Mechanical Rate FiO2 Tidal Volume PEEP Potassium Carbon Dioxide Anion Gap BUN Creatinine Est GFR ( Amer) Est GFR (Non-Af Amer) POC Glucose (mg/dL) 212 H 254 H 215 H Random Glucose Hemoglobin A1c Lactic Acid Calcium Phosphorus Magnesium Total Bilirubin AST ALT Alkaline Phosphatase Lactate Dehydrogenase Total Creatine Kinase CK-MB (CK-2) CK-MB (CK-2) % Troponin I Total Protein Albumin Globulin Albumin/Globulin Ratio Arterial Blood Potassium Venous Blood Potassium Urine Color Urine Appearance Urine pH Ur Specific [place] Urine Protein Urine Glucose (UA) Urine Ketones Urine Blood Urine Nitrate Urine Bilirubin Urine Urobilinogen Ur Leukocyte Esterase Urine RBC Urine WBC Ur Epithelial Cells Urine Bacteria Vancomycin Trough Urine Opiates Screen Urine Methadone Screen Ur Barbiturates Screen Ur Phencyclidine Scrn Ur Amphetamines Screen U Benzodiazepines Scrn U Oth Cocaine Metabols U Cannabinoids Screen 09/03/16 09/03/16 09/03/16 05:00 05:30 07:45 WBC 16.7 H D RBC 4.32 Hgb 13.1 L Hct 35.9 L MCV 83.1 MCH 30.3 MCHC 36.5 RDW 12.5 Plt Count 310 MPV 10.0 PT 14.3 H INR 1.32 H pCO2 31 L pO2 179.0 H 156 H HCO3 23.1 ABG pH 7.48 H ABG Total CO2 24.1 ABG O2 Saturation 99.3 H ABG O2 Content 18.8 ABG Base Excess 0.4 ABG Hemoglobin 13.5 ABG Carboxyhemoglobin 1.4 POC ABG HHb (Measured) 0.7 ABG Methemoglobin 0.8 ABG O2 Capacity 18.9 ABG Potassium VBG pH 7.50 H VBG pCO2 30.0 L VBG HCO3 23.4 VBG Total CO2 24.3 VBG O2 Sat (Calc) 99.5 H VBG Base Excess 1.1 VBG Potassium 3.6 Hgb O2 Saturation 97.1 Sodium 148 146 Chloride 114 H 114 H Glucose 195 H Lactate 1.3 Mechanical Rate FiO2 40.0 21.0 Tidal Volume PEEP Potassium 3.5 L 3.8 Carbon Dioxide 27 24 Anion Gap 11 12 BUN 48 H 45 H Creatinine 1.6 H 1.4 Est GFR ( Amer) 55 > 60 Est GFR (Non-Af Amer) 45 53 POC Glucose (mg/dL) Random Glucose 220 H 188 H Hemoglobin A1c 7.9 H Lactic Acid 1.5 Calcium 8.1 L 7.9 L Phosphorus 2.0 L Magnesium 2.2 Total Bilirubin 0.5 0.6 AST 184 H 171 H ALT 67 H 66 H Alkaline Phosphatase 66 67 Lactate Dehydrogenase 1366 H Total Creatine Kinase 9870 H CK-MB (CK-2) 29.8 H CK-MB (CK-2) % 0.3 L Troponin I 0.05 Total Protein 5.4 L 5.7 L Albumin 2.9 L 3.1 Globulin 2.4 2.6 Albumin/Globulin Ratio 1.2 1.2 Arterial Blood Potassium Venous Blood Potassium 3.6 Urine Color Urine Appearance Urine pH Ur Specific [place] Urine Protein Urine Glucose (UA) Urine Ketones Urine Blood Urine Nitrate Urine Bilirubin Urine Urobilinogen Ur Leukocyte Esterase Urine RBC Urine WBC Ur Epithelial Cells Urine Bacteria Vancomycin Trough 8.5 Urine Opiates Screen Urine Methadone Screen Ur Barbiturates Screen Ur Phencyclidine Scrn Ur Amphetamines Screen U Benzodiazepines Scrn U Oth Cocaine Metabols U Cannabinoids Screen 09/03/16 14:00 WBC RBC Hgb Hct MCV MCH MCHC RDW Plt Count MPV PT INR pCO2 pO2 HCO3 ABG pH ABG Total CO2 ABG O2 Saturation ABG O2 Content ABG Base Excess ABG Hemoglobin ABG Carboxyhemoglobin POC ABG HHb (Measured) ABG Methemoglobin ABG O2 Capacity ABG Potassium VBG pH VBG pCO2 VBG HCO3 VBG Total CO2 VBG O2 Sat (Calc) VBG Base Excess VBG Potassium Hgb O2 Saturation Sodium 147 Chloride 113 H Glucose Lactate Mechanical Rate FiO2 Tidal Volume PEEP Potassium 4.2 Carbon Dioxide 25 Anion Gap 13 BUN 35 H Creatinine 1.3 Est GFR ( Amer) > 60 Est GFR (Non-Af Amer) 58 POC Glucose (mg/dL) Random Glucose 301 H* D Hemoglobin A1c Lactic Acid Calcium 8.0 L Phosphorus Magnesium Total Bilirubin 0.7 AST 166 H ALT 68 H Alkaline Phosphatase 68 Lactate Dehydrogenase Total Creatine Kinase CK-MB (CK-2) CK-MB (CK-2) % Troponin I Total Protein 5.2 L Albumin 2.8 L Globulin 2.4 Albumin/Globulin Ratio 1.2 Arterial Blood Potassium Venous Blood Potassium Urine Color Urine Appearance Urine pH Ur Specific [place] Urine Protein Urine Glucose (UA) Urine Ketones Urine Blood Urine Nitrate Urine Bilirubin Urine Urobilinogen Ur Leukocyte Esterase Urine RBC Urine WBC Ur Epithelial Cells Urine Bacteria Vancomycin Trough Urine Opiates Screen Urine Methadone Screen Ur Barbiturates Screen Ur Phencyclidine Scrn Ur Amphetamines Screen U Benzodiazepines Scrn U Oth Cocaine Metabols U Cannabinoids Screen Attending/Attestation - Attestation I have personally seen and examined this patient.: Yes I have fully participated in the care of the patient.: Yes I have reviewed all pertinent clinical information: Yes Notes (Text): 09/03/16 15:40 56 y/o M admitted with severe DKA SBT trial today > 90 minutes, but mental status not safe to extubate. Sedation changed to precedex. This morning AG closed and Blood sugars are WNL Mental status off Propofol has not returned after 3 hrs. Family at bedside explains that the patient has not been in contact for over 36 hrs and possible downtime is unknown. Elevated WBC without source of infection. On empiric abx and cx pending. DKA resolved, levimir started, Endocrine consult placed. Pt's insulin pump stopped. Plans for ct abd/pelvis to r/o infection etc. CT head done on admission without any findings. Needs to have family discussion, as the daughter explains that the patient wanted to be DNR/DNI and would not have wanted any of this. cc time 72 min
[2016-09-03] MEDS ORDERED: Insulin Detemir 100 units/ml Vial (Levemir) SC STA (12:10)
[2016-09-03] MEDS: Insulin Lispro 1 UNITS/0.01 ML SC SCH ×3 (12:35→20:29)
[2016-09-03] MEDS ORDERED: Barium Sulfate Susp 2.1% w/v, 2.0% w/w 450 mL Bottle PO ONE (12:43)
[2016-09-03] MEDS: Dexmedetomidine HCl 4mcg/ml 100 ML IV PRN (13:01)
--- NOTE | 2016-09-03 13:04 | US ---
PROCEDURE: Ultrasound of the Kidneys HISTORY: ARF COMPARISON: None available. TECHNIQUE: Sonogram of the kidneys. FINDINGS: RIGHT KIDNEY: Measures: 10.8 cm. Normal in size, contour and echogenicity. No stone, solid mass lesion or hydronephrosis visualized. LEFT KIDNEY: Measures: 9.8 cm. Normal in size, contour and echogenicity. No stone, solid mass lesion or hydronephrosis visualized. OTHER FINDINGS: None. IMPRESSION: Unremarkable renal sonogram.
--- NOTE | 2016-09-03 13:06 | CON ---
DATE: 09/03/2016 In room 128 CCU, room 4. This is a 56-year-old male with known history of type 1 insulin-dependent diabetes, currently on an i nsulin pump and was apparently found unresponsive at home by his daughter and admitted here in diabet ic ketoacidosis and marked dehydration with rhabdomyolysis, and is now being referred for diabetic ev aluation and management. We do not have any details as to his home insulin dosing as to whether he w as using basal and bolus doses over the last few days prior to admission as the patient is sedated an d endotracheally intubated at this time. PAST MEDICAL HISTORY: As mentioned above, history of type 1 insulin-dependent diabetes using an insu maite pump at home as noted, history of hypertensive cardiovascular disease and dyslipidemia. Also, hi story of bicuspid aortic valve and is followed closely by cardiology. History of diabetic retinopath y and polyneuropathy as noted. PAST SURGICAL HISTORY: He had laser treatments to both eyes. FAMILY HISTORY: Positive for hypertension and diabetes. SOCIAL HISTORY: The patient has a supportive family. No known substance use. The patient was a pre vious tobacco user, but has quit smoking at this time. 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 REVIEW OF SYSTEMS: Not possible at this time as the patient is currently sedated and intubated as no john. PHYSICAL EXAMINATION: GENERAL: This is an average built male, in no apparent distress. VITAL SIGNS: Blood pressure of 150/90, pulse of 100 beats per minute, regular, temperature 98, respi rations 20. Height is 5 feet 6 inches, weight is 170 pounds. HEENT: Head normocephalic. Eyes anicteric with pink conjunctivae. Fundoscopy not possible at this time. Ears, nose and throat otherwise normal. NECK: Supple. Thyroid gland is normal size. No carotid bruits or any cervical adenopathy. CARDIOPULMONARY: Some adynamic precordium. S1, S2 is rapid and regular. LUNGS: Show scattered rhonchi. ABDOMEN: Flat, soft with positive bowel sounds. EXTREMITIES: No peripheral edema. Pulses are +2 bilaterally. LABORATORIES: CBC: WBC is 26.8, hemoglobin of 16, hematocrit of 49, MCV 93, platelets 480. The ini tial chemistries showed a BUN of 56, sodium 133, potassium 7.7, chloride 89, CO2 of 8, glucose of 930 and creatinine is 3.7. His LDH is 1469. The creatine kinase is 11,166. CK-MB is 55.3. The latest CO2 today is 24 with a BUN of 45 and creatinine of 1.4. ASSESSMENT: This is a 56-year-old male with uncontrolled and decompensated type 1 insulin-dependent diabetes, presenting here with unresponsiveness as found by the family at home and clearly in diabeti c ketoacidosis and marked dehydration with spurious hyponatremia, hyperkalemia and with prerenal azot emia. There is also concomitant evidence of rhabdomyolysis as noted biochemically. There is also hi storical possibility of diabetic microvascular complications of retinopathy and polyneuropathy and po ssibly even nephropathy. PLAN OF MANAGEMENT: As the patient has improved remarkably biochemically on the insulin drip infusio n as given overnight, we can now discontinue the insulin drip today at noontime and switch him over t o a q. 4 hourly glucose monitoring with Humalog insulin as given. As he is weaned off from sedation and eventually extubated, then we can start him on a liquid diet and advance him to solid food as ind icated. We can then start him on a more physiologic basal and bolus insulin drug combination as kaitlin cated. For now, we will add a stat dose of Levemir at 12 units to be given at noontime and then queenie valladares we will give him Levemir at 20 units subQ at bedtime daily. We will obtain serial chemistries an d supplement accordingly as needed. We will follow. Rocío Rich MD cc: [id number] TT: 09/03/2016 13:05:16 Confirmation # [id number] Dictation # [id number]
[2016-09-03 14:16] LABS: ALB/GLOB RATIO 1.2 (1.1-1.8); ALKALINE PHOSPHATASE 68 U/L (38-133); ALT/SGPT 68 U/L (7-56); AST/SGOT 166 U/L (15-59); BILIRUBIN,TOTAL 0.7 mg/dL (0.2-1.3); BLOOD UREA NITROGEN 35 mg/dL (7-21); CARBON DIOXIDE 25 mmol/L (21-33); CHLORIDE 113 mmol/L (98-107); GFR AFRICAN-AMERICAN > 60; POTASSIUM 4.2 mmol/L (3.6-5.0); SODIUM 147 mmol/L (132-148); TOTAL PROTEIN 5.2 g/dL (5.8-8.3)
--- NOTE | 2016-09-03 14:24 | RAD ---
HISTORY: ogt COMPARISON: Earlier same day FINDINGS: LUNGS: No active pulmonary disease. PLEURA: No significant pleural effusion identified, no pneumothorax apparent. CARDIOVASCULAR: Normal. OSSEOUS STRUCTURES: No significant abnormalities. VISUALIZED UPPER ABDOMEN: Normal. OTHER FINDINGS: None. IMPRESSION: Endotracheal and nasogastric tubes are in satisfactory position
[2016-09-03 15:06] LABS: GLUCOSE,RANDOM 301 mg/dL (70-110)
[2016-09-03 16:05] LABS: TROPONIN I 0.05 ng/mL
[2016-09-03] MEDS ORDERED: Sodium Chloride 0.9% 1,000 ML IV STA (16:15)
--- NOTE | 2016-09-03 18:23 | CT ---
PROCEDURE: CT Abdomen and Pelvis without intravenous contrast HISTORY: r/o infection, insulin pump COMPARISON: None. TECHNIQUE: Without contrast.. Contrast Dose: 0 Radiation dose: Total exam DLP = 982.63 mGy-cm. FINDINGS: LOWER THORAX: Small hiatal hernia. Nasogastric tube noted extending into duodenum. There is a rounded soft tissue density along the right side of the distal esophagus. This measures approximately 2 cm in diameter. Uncertain significance on the basis of this limited examination. Dedicated contrast enhanced chest CT examination is advised. Trace right pleural effusion. There is infiltration of the midline presternal subcutaneous soft tissues common nonspecific. No significant thickening of overlying skin. Nevertheless, the possibility of cellulitis should be considered in the appropriate clinical setting. LIVER: Unremarkable. No gross lesion or ductal dilatation. GALLBLADDER AND BILE DUCTS: Unremarkable. PANCREAS: Unremarkable. No gross lesion or ductal dilatation. SPLEEN: Unremarkable. ADRENALS: Unremarkable. No mass. KIDNEYS AND URETERS: Unremarkable. No hydronephrosis. No solid mass. VASCULATURE: Unremarkable. No aortic aneurysm. BOWEL: Unremarkable. No obstruction. No gross mural thickening. APPENDIX: Unremarkable. Normal appendix. PERITONEUM: Unremarkable. No free fluid. No free air. LYMPH NODES: Unremarkable. No enlarged lymph nodes. BLADDER: Nondistended. Bacon catheter present. REPRODUCTIVE: Normal prostate. BONES: No acute fracture. OTHER FINDINGS: Right femoral venous catheter. IMPRESSION: Infiltration of presternal subcutaneous soft tissues. Rule out cellulitis. Small hiatal hernia. 2 cm soft tissue mass along the right at lateral aspect of the distal esophagus. Uncertain significance. Dedicated contrast enhanced chest CT examination is advised. Trace right pleural effusion. Nasogastric tube. Bacon catheter. Right femoral venous catheter.
[2016-09-03] MEDS: Insulin Detemir 100 units/ml Vial (Levemir) SC SCH (21:29)
[2016-09-04] MEDS: Insulin Lispro 1 UNITS/0.01 ML SC SCH ×6 (00:15→20:15)
[2016-09-04] MEDS: Dexmedetomidine HCl 4mcg/ml 100 ML IV PRN (03:16)
[2016-09-04] MEDS: Potassium Chloride 20 MEQ in Dextrose 5%/0.45% NS 1,000 ML IV SCH (04:09)
[2016-09-04] MEDS ORDERED: Dextrose 50% SYRINGE Inj (50 ml) IVP ONE ×2 (04:20→12:45)
[2016-09-04] MEDS: metroNIDAZOLE IV 500 mg/100 ml 100 ML IVPB SCH ×3 (05:02→22:37)
[2016-09-04 05:31] LABS: ARTERIAL BLOOD GAS HCO3 25.8 mmol/L (21-28); ARTERIAL BLOOD GAS O2 CAPACITY 15.2 mL/dl (16-24); ARTERIAL BLOOD GAS PH 7.44 (7.35-7.45); ARTERIAL BLOOD HGB O2 SAT 96.4 % (95.0-98.0); CARBOXYHEMOGLOBIN 1.5 % (0.5-1.5)
[2016-09-04 06:01] LABS: ADD MANUAL DIFF? NO
[2016-09-04 06:07] LABS: GRAN # 7.83 (1.4-6.5); GRAN % 80.2 % (50.0-68.0); HEMATOCRIT 32.9 % (42.0-52.0); LYMPH # 1.1 (1.2-3.4); LYMPH % 11.4 % (22.0-35.0); MEAN CELL VOLUME 86.6 fL (80.0-105.0); MEAN CORPUSCULAR HEMOGLOBIN 30.3 pg (25.0-35.0); MEAN PLATELET VOLUME 10.1 fl (7.0-11.0); MONO # 0.8 (0.1-0.6); MONO % 8.4 % (1.0-6.0); PLATELET COUNT 223 [, 10^3/uL] (120.0-450.0); RED CELL DISTRIBUTION WIDTH 12.9 % (11.5-14.5); WHITE BLOOD COUNT 9.8 [, 10^3/ul] (4.5-11.0)
[2016-09-04 06:16] LABS: ALB/GLOB RATIO 1.1 (1.1-1.8); ALKALINE PHOSPHATASE 54 U/L (38-133); ALT/SGPT 60 U/L (7-56); AST/SGOT 118 U/L (15-59); BILIRUBIN,TOTAL 0.7 mg/dL (0.2-1.3); BLOOD UREA NITROGEN 23 mg/dL (7-21); CARBON DIOXIDE 30 mmol/L (21-33); CHLORIDE 117 mmol/L (95-110); GFR AFRICAN-AMERICAN > 60; GLUCOSE,RANDOM 107 mg/dL (70-110); MAGNESIUM 2.5 mg/dL (1.7-2.2); PHOSPHOROUS 2.2 mg/dL (2.5-4.5); POTASSIUM 3.9 mmol/L (3.6-5.0); SODIUM 150 mmol/L (132-148); TOTAL PROTEIN 4.7 g/dL (5.8-8.3)
[2016-09-04] MEDS ORDERED: Sodium Chloride 0.9% 1,000 ML IV STA (07:53)
[2016-09-04] MEDS: Sodium Chloride 0.9% 1,000 ML IV SCH ×3 (08:30→19:30)
--- NOTE | 2016-09-04 09:23 | CARD ---
APPROVED REPORT EXAM: Two-dimensional and M-mode echocardiogram with Doppler and color Doppler. Other Information Quality : PoorRhythm : INDICATION Infection:Rule out subacute bacterial endocarditis bicuspid valve 2D DIMENSIONS Left Atrium (2D)3.9 (1.6-4.0cm)IVSd1.2 (0.7-1.1cm) LVDd3.4 (3.9-5.9cm)LVOT Diameter2.0 (1.8-2.4cm) PWd1.1 (0.7-1.1cm)LVDs2.0 (2.5-4.0cm) FS (%) 42.1 %LVEF (%)74.0 (>50%) Aortic Valve AoV Peak Jogbcwse337.7cm/sAoV VTI47.5cmAO Peak GR.35mmHg LVOT Peak Huzkugap690.0cm/sLVOT VTI25.65cmAO Mean GR.20mmHg PACO (VMAX)1.29ry1MLO (VTI)1.66cm2 Mitral Valve MV E Qsetkacu05.1cm/sMV A Dyumddqv416.0cm/sE/A ratio0.6 TDI E/Lateral E'0.0E/Medial E'0.0 Tricuspid Valve TR Peak [id number]/sRAP [id number] Peak Gr.26mmHg [id number] LEFT VENTRICLE The left ventricle is normal size. There is normal left ventricular wall thickness. The left ventricular function is normal. The left ventricular ejection fraction is within the normal range. There is normal LV segmental wall motion. RIGHT VENTRICLE The right ventricle is normal size. ATRIA The left atrium size is normal. The right atrium size is normal. AORTIC VALVE The aortic valve is not well visualized. MITRAL VALVE The mitral valve is normal in structure. TRICUSPID VALVE The tricuspid valve is normal in structure. PULMONIC VALVE The pulmonic valve is not well visualized. GREAT VESSELS The aortic root is normal in size. PERICARDIAL EFFUSION There is no pericardial effusion. <Conclusion> This is a very limited study. Patient on vent in ICU. The left ventricle is normal size. There is normal left ventricular wall thickness. The left ventricular function is normal.
[2016-09-04] MEDS: Cefepime 1gm in NS 100ml 100 ML IVPB SCH (09:45)
--- NOTE | 2016-09-04 11:03 | RAD ---
HISTORY: ett COMPARISON: Chest x-ray performed 09/03/16 TECHNIQUE: Chest, one view. FINDINGS: Endotracheal tube terminates approximately 4.5 cm above the sandi. Nasogastric tube extends expected location of the stomach. LUNGS: No focal consolidation. Please note that chest x-ray has limited sensitivity for the detection of pulmonary masses. PLEURA: No significant pleural effusion identified. No definite pneumothorax . CARDIOVASCULAR: The cardiomediastinal silhouette appears within normal limits of size. OSSEOUS STRUCTURES: No acute osseous abnormality identified. VISUALIZED UPPER ABDOMEN: Unremarkable. OTHER FINDINGS: None. IMPRESSION: Endotracheal tube terminates approximately 4.5 cm above the sandi. Nasogastric tube extends expected location of the stomach.
--- NOTE | 2016-09-04 11:51 | RAD ---
PROCEDURE: Radiographs of the right forearm. HISTORY: r/o metal COMPARISON: None available. TECHNIQUE: Frontal and lateral views obtained. FINDINGS: BONES: No acute displaced fracture. JOINT SPACES: No dislocation. OTHER FINDINGS: Soft tissues appear unremarkable. No evidence of radiopaque foreign body. IMPRESSION: No evidence of radiopaque foreign body on the submitted two views of the forearm.
--- NOTE | 2016-09-04 11:59 | CP.CCUPN ---
<Ema Romero - Last Filed: 09/04/16 15:29> CCU Subjective - Physician Review Events Since Last Encounter (Free Text): 09/04/16 11:09 Patient seen and examined bedside. Patient was agitated overnight, was given 2mg IV ativan, currently still somnolent, minimally responsive to painful stimuli. Tolerated pressure support overnight. Probable MRI brain later today if mental status does not resolve. 09/04/16 15:00 Family at bedside. Patient became very agitated, trying to get out of bed, did follow some commands. Was successfully extubated to [place]. Given 1 Albuterol tx by RT. Patient able to answer some questions intermittently, though still somnolent. For MRI later today if does not wake up completely. Critical Care Time Spent (in minutes): 40 CCU Objective - Vital Signs / Intake & Output Vital Signs (Last 4 hours): Vital Signs Temp Pulse 09/04/16 11:30 100.2 F H 09/04/16 08:00 99.9 F H 67 Intake and Output (Last 8hrs): Intake & Output 09/03/16 09/04/16 09/04/16 22:59 06:59 14:59 Intake Total 3000 1700 Output Total 1000 750 Balance 2000 950 Weight 172 lb 9.6 oz Intake: IV 1800 1700 Right Femoral 1800 500 Right Antecubital 1200 Other 1200 Output: Urine 1000 750 Urethral (Bacon) 1000 750 Other: Voiding Method Indwelling Catheter Indwelling Catheter # Bowel Movements 0 - Physical Exam Head: Positive for: Normocephalic, Swelling (Mild left upper eyelid and left sided facial swelling) Pupils: Positive for: PERRL Conjunctiva: Positive for: Normal Ears: Positive for: Normal Mouth: Positive for: Dry Pharnyx: Negative for: ERYTHEMA Neck: Negative for: JVD Respiratory/Chest: Positive for: Clear to Auscultation, Good Air Exchange, Respiratory Distress, Accessory Muscle Use, Tachypneic Cardiovascular: Positive for: Normal S1, S2, Tachycardic. Negative for: Murmurs Abdomen: Positive for: Normal Bowel Sounds. Negative for: Tenderness, Distention, Peritoneal Signs Upper Extremity: Positive for: Normal Inspection, Normal ROM. Negative for: Cyanosis, Edema Lower Extremity: Positive for: Normal Inspection, Normal ROM. Negative for: Edema Neurological: Positive for: GCS=15 Skin: Positive for: Warm, Normal Color. Negative for: Rashes Psychiatric: Positive for: Alert - Medications Active Medications: Active Medications Generic Name Dose Route Start Last Admin Trade Name Freq PRN Reason Stop Dose Admin Heparin Sodium (Porcine) 5,000 units 09/03/16 01:45 09/04/16 05:02 Heparin SC 5,000 units Q8 [facility] Administration Protocol Cefepime HCl 100 mls @ 100 mls/hr 09/02/16 22:00 09/04/16 09:45 Maxipime 1gm IVPB 100 mls/hr Q12 [facility] Administration Protocol Metronidazole 100 mls @ 100 mls/hr 09/02/16 22:00 09/04/16 05:02 Flagyl IVPB 100 mls/hr Q8 [facility] Administration Protocol Dexmedetomidine HCl 100 mls @ 3.86 mls/hr 09/03/16 12:29 09/04/16 03:16 Precedex 4 Mcg/Ml (100 Ml) IV 3.86 mls/hr .Q24H PRN Administration Agitation Protocol 0.2 MCG/KG/HR Sodium Chloride 1,000 mls @ 200 mls/hr 09/04/16 08:00 09/04/16 08:30 Sodium Chloride 0.9% IV 200 mls/hr .Q5H [facility] Administration Insulin Detemir 20 unit 09/03/16 22:00 09/03/16 21:29 Levemir SC 20 unit HS [facility] Administration Insulin Human Lispro 0 units 09/03/16 12:15 09/04/16 08:26 Humalog SC Not Given Q4H [facility] Protocol Pantoprazole Sodium 40 mg 09/03/16 10:00 09/04/16 09:44 Protonix Inj IVP 40 mg DAILY [facility] Administration - Patient Studies Lab Studies: Microbiology Studies 09/02/16 19:10 Urine Culture - Final Urine,Bacon No Growth (<1,000 CFU/ML) 09/02/16 18:55 MRSA Culture (Admit) - Final Naris MRSA NOT DETECTED Lab Studies 09/04/16 09/04/16 09/03/16 Range/Units 05:15 03:45 15:55 WBC 9.8 D (4.5-11.0) 10^3/ul RBC 3.80 (3.5-6.1) 10^6/uL Hgb 11.5 L (14.0-18.0) gm/dL Hct 32.9 L (42.0-52.0) % MCV 86.6 (80.0-105.0) fL MCH 30.3 (25.0-35.0) pg MCHC 35.0 (31.0-37.0) g/dl RDW 12.9 (11.5-14.5) % Plt Count 223 (120.0-450.0) 10^3/uL MPV 10.1 (7.0-11.0) fl Gran % 80.2 H (50.0-68.0) % Lymph % (Auto) 11.4 L (22.0-35.0) % Kimball % (Auto) 8.4 H (1.0-6.0) % Eos % (Auto) 0.0 L (1.5-5.0) % Baso % (Auto) 0.0 (0.0-3.0) % Gran # 7.83 H (1.4-6.5) Lymph # 1.1 L (1.2-3.4) Kimball # 0.8 H (0.1-0.6) Eos # 0.0 (0.0-0.7) Baso # 0.00 (0.0-2.0) K/mm3 pCO2 38 (35-45) mm/Hg pO2 179.0 H (80-100) mm/Hg HCO3 25.8 (21-28) mmol/L ABG pH 7.44 (7.35-7.45) ABG Total CO2 27.0 (22-28) mmol.L ABG O2 Saturation 99.0 H (95-98) % ABG O2 Content 15.0 (15-23) ML/dl ABG Base Excess 1.6 (-2.0-3.0) mmol/L ABG Hemoglobin 10.8 L (11.7-17.4) g/dL ABG Carboxyhemoglobin 1.5 (0.5-1.5) % POC ABG HHb (Measured) 1.0 (0-5) % ABG Methemoglobin 1.0 (0.0-3.0) % ABG O2 Capacity 15.2 L (16-24) mL/dl Hgb O2 Saturation 96.4 (95.0-98.0) % FiO2 40.0 % Sodium 150 H (132-148) mmol/L Potassium 3.9 (3.6-5.0) mmol/L Chloride 117 H (95-110) mmol/L Carbon Dioxide 30 (21-33) mmol/L Anion Gap 7 L (10-20) BUN 23 H (7-21) mg/dL Creatinine 1.0 (0.5-1.4) mg/dL Est GFR ( Amer) > 60 Est GFR (Non-Af Amer) > 60 POC Glucose (mg/dL) 276 H (65-110) mg/dL Random Glucose 107 (70-110) mg/dL Calcium 8.0 L (8.4-10.5) mg/dL Phosphorus 2.2 L (2.5-4.5) mg/dL Magnesium 2.5 H (1.7-2.2) mg/dL Total Bilirubin 0.7 (0.2-1.3) mg/dL AST 118 H (15-59) U/L ALT 60 H (7-56) U/L Alkaline Phosphatase 54 (38-133) U/L Lactate Dehydrogenase (333-699) U/L Total Creatine Kinase 3762 H (35-230) U/L CK-MB (CK-2) 4.9 H (0.0-3.6) ng/mL CK-MB (CK-2) % Cancelled Troponin I ng/mL Total Protein 4.7 L (5.8-8.3) g/dL Albumin 2.5 L (3.0-4.8) g/dL Globulin 2.3 gm/dL Albumin/Globulin Ratio 1.1 (1.1-1.8) 09/03/16 Range/Units 14:00 WBC (4.5-11.0) 10^3/ul RBC (3.5-6.1) 10^6/uL Hgb (14.0-18.0) gm/dL Hct (42.0-52.0) % MCV (80.0-105.0) fL MCH (25.0-35.0) pg MCHC (31.0-37.0) g/dl RDW (11.5-14.5) % Plt Count (120.0-450.0) 10^3/uL MPV (7.0-11.0) fl Gran % (50.0-68.0) % Lymph % (Auto) (22.0-35.0) % Kimball % (Auto) (1.0-6.0) % Eos % (Auto) (1.5-5.0) % Baso % (Auto) (0.0-3.0) % Gran # (1.4-6.5) Lymph # (1.2-3.4) Kimball # (0.1-0.6) Eos # (0.0-0.7) Baso # (0.0-2.0) K/mm3 pCO2 (35-45) mm/Hg pO2 (80-100) mm/Hg HCO3 (21-28) mmol/L ABG pH (7.35-7.45) ABG Total CO2 (22-28) mmol.L ABG O2 Saturation (95-98) % ABG O2 Content (15-23) ML/dl ABG Base Excess (-2.0-3.0) mmol/L ABG Hemoglobin (11.7-17.4) g/dL ABG Carboxyhemoglobin (0.5-1.5) % POC ABG HHb (Measured) (0-5) % ABG Methemoglobin (0.0-3.0) % ABG O2 Capacity (16-24) mL/dl Hgb O2 Saturation (95.0-98.0) % FiO2 % Sodium 147 (132-148) mmol/L Potassium 4.2 (3.6-5.0) mmol/L Chloride 113 H (95-110) mmol/L Carbon Dioxide 25 (21-33) mmol/L Anion Gap 13 (10-20) BUN 35 H (7-21) mg/dL Creatinine 1.3 (0.5-1.4) mg/dL Est GFR ( Amer) > 60 Est GFR (Non-Af Amer) 58 POC Glucose (mg/dL) (65-110) mg/dL Random Glucose 301 H* D (70-110) mg/dL Calcium 8.0 L (8.4-10.5) mg/dL Phosphorus (2.5-4.5) mg/dL Magnesium (1.7-2.2) mg/dL Total Bilirubin 0.7 (0.2-1.3) mg/dL AST 166 H (15-59) U/L ALT 68 H (7-56) U/L Alkaline Phosphatase 68 (38-133) U/L Lactate Dehydrogenase 1603 H (333-699) U/L Total Creatine Kinase 65277 H (35-230) U/L CK-MB (CK-2) 47.7 H (0.0-3.6) ng/mL CK-MB (CK-2) % 0.4 L Troponin I 0.05 ng/mL Total Protein 5.2 L (5.8-8.3) g/dL Albumin 2.8 L (3.0-4.8) g/dL Globulin 2.4 gm/dL Albumin/Globulin Ratio 1.2 (1.1-1.8) Laboratory Results - last 24 hr 09/03/16 09/03/16 09/04/16 14:00 15:55 03:45 WBC 9.8 D RBC 3.80 Hgb 11.5 L Hct 32.9 L MCV 86.6 MCH 30.3 MCHC 35.0 RDW 12.9 Plt Count 223 MPV 10.1 Gran % 80.2 H Lymph % (Auto) 11.4 L Kimball % (Auto) 8.4 H Eos % (Auto) 0.0 L Baso % (Auto) 0.0 Gran # 7.83 H Lymph # 1.1 L Kimball # 0.8 H Eos # 0.0 Baso # 0.00 pCO2 pO2 HCO3 ABG pH ABG Total CO2 ABG O2 Saturation ABG O2 Content ABG Base Excess ABG Hemoglobin ABG Carboxyhemoglobin POC ABG HHb (Measured) ABG Methemoglobin ABG O2 Capacity Hgb O2 Saturation FiO2 Sodium 147 150 H Potassium 4.2 3.9 Chloride 113 H 117 H Carbon Dioxide 25 30 Anion Gap 13 7 L BUN 35 H 23 H Creatinine 1.3 1.0 Est GFR ( Amer) > 60 > 60 Est GFR (Non-Af Amer) 58 > 60 POC Glucose (mg/dL) 276 H Random Glucose 301 H* D 107 Calcium 8.0 L 8.0 L Phosphorus 2.2 L Magnesium 2.5 H Total Bilirubin 0.7 0.7 AST 166 H 118 H ALT 68 H 60 H Alkaline Phosphatase 68 54 Lactate Dehydrogenase 1603 H Total Creatine Kinase 84144 H 3762 H CK-MB (CK-2) 47.7 H 4.9 H CK-MB (CK-2) % 0.4 L Cancelled Troponin I 0.05 Total Protein 5.2 L 4.7 L Albumin 2.8 L 2.5 L Globulin 2.4 2.3 Albumin/Globulin Ratio 1.2 1.1 09/04/16 05:15 WBC RBC Hgb Hct MCV MCH MCHC RDW Plt Count MPV Gran % Lymph % (Auto) Kimball % (Auto) Eos % (Auto) Baso % (Auto) Gran # Lymph # Kimball # Eos # Baso # pCO2 38 pO2 179.0 H HCO3 25.8 ABG pH 7.44 ABG Total CO2 27.0 ABG O2 Saturation 99.0 H ABG O2 Content 15.0 ABG Base Excess 1.6 ABG Hemoglobin 10.8 L ABG Carboxyhemoglobin 1.5 POC ABG HHb (Measured) 1.0 ABG Methemoglobin 1.0 ABG O2 Capacity 15.2 L Hgb O2 Saturation 96.4 FiO2 40.0 Sodium Potassium Chloride Carbon Dioxide Anion Gap BUN Creatinine Est GFR ( Amer) Est GFR (Non-Af Amer) POC Glucose (mg/dL) Random Glucose Calcium Phosphorus Magnesium Total Bilirubin AST ALT Alkaline Phosphatase Lactate Dehydrogenase Total Creatine Kinase CK-MB (CK-2) CK-MB (CK-2) % Troponin I Total Protein Albumin Globulin Albumin/Globulin Ratio Fingerstick Blood Sugar Results: 78 Review of Systems - Review of Systems Systems not reviewed;Unavailable: Altered Mental Status Critical Care Progress Note - Ventilator Checklist PUD Prophalyxis: Yes DVT Prophylaxis: Yes Assessment/Plan - Assessment and Plan (Free Text) Assessment: 56 yo M w h/o DM1, HTN, HLD, bicuspid aortic valve found unresponsive at home admitted to ICU in DKA, sepsis, encephalopathy, rhabdomyolysis, CHANTEL, electrolyte abnormalities now s/p extubation Plan: Neuro: Encephalopathy at admission 2/2 sepsis /metabolic disturbances improved. Patient now more alert, not oriented. CT head negative to any acute pathology. MRI head today to r/o acute cause of AMS. Off all sedation at this time. Hold all benzos. PRN precedex Pulm: s/p successful extubation. s/p Albuterol x1. Currently tolerating NC. Continue to monitor respiratory status Maintain SpO2>90, PaO2>60. Aspiration precautions. CV: will obtain 2D ECHO to assess LV function was very limited function, LVEF 74 %. Will request new ECHO with clearer images to evaluate bicuspid aortic valve Troponins were trended and were negative x4 GI: GI ppx. NPO. OGT Transaminitis slowly improving. Continue to monitor Endo: DKA with pH 7.02 on ABG at admission - resolved. Anion gap closed. Last pH 7.44 on ABG this AM. Off Insulin gtt. Hb A1C 7.9. Endocrinology recs appreciated. Will need insulin pump evaluated. Patient was hypoglycemic this morning with BS 49. Gave one amp D50 with subsequent BS 140. Will hold Levemir for now. Renal: CHANTEL likely 2/2 rhabdo +/- sepsis +/- dehydration - resolved. Continue to monitor renal function. I&Os Rhabdo improving. Continue to trend CPK. Continue NS @200cc/hr Significant hyperkalemia 7.7 at admission likely 2/2 rhabdo - resolved. Continue to monitor Renal US unremarkable ID: Leukocytosis resolved. Continue Cefepime and Flagyl. Blood cultures negative at 24 hours. Final urine cultures negative. Lactic acidosis resolved 1.[address] A/P with PO contrast showed infiltration in subcutaneous soft tissue - possible cellulitis, 2cm soft tissue mass along right lateral distal esophagus. Heme: Hb 11.5, likely dilutional. No signs of bleeding. Continue to monitor DVT/GI ppx: NPO, Protonix, SQH. - Date & Time Date: 09/04/16 Time: 15:29 <Dominic QUESADA,Rea H - Last Filed: 09/04/16 16:23> CCU Objective - Vital Signs / Intake & Output Intake and Output (Last 8hrs): Intake & Output 09/04/16 09/04/16 09/04/16 06:59 14:59 22:59 Intake Total 1700 Output Total 750 Balance 950 Weight 172 lb 9.6 oz Intake: IV 1700 Right Femoral 500 Right Antecubital 1200 Output: Urine 750 Urethral (Bacon) 750 Other: Voiding Method Indwelling Catheter - Medications Active Medications: Active Medications Generic Name Dose Route Start Last Admin Trade Name Freq PRN Reason Stop Dose Admin Heparin Sodium (Porcine) 5,000 units 09/03/16 01:45 09/04/16 14:09 Heparin SC 5,000 units Q8 [facility] Administration Protocol Cefepime HCl 100 mls @ 100 mls/hr 09/02/16 22:00 09/04/16 09:45 Maxipime 1gm IVPB 100 mls/hr Q12 [facility] Administration Protocol Metronidazole 100 mls @ 100 mls/hr 09/02/16 22:00 09/04/16 14:08 Flagyl IVPB 100 mls/hr Q8 [facility] Administration Protocol Dexmedetomidine HCl 100 mls @ 3.86 mls/hr 09/03/16 12:29 09/04/16 11:50 Precedex 4 Mcg/Ml (100 Ml) IV 0 mcg/kg/hr .Q24H PRN Titration Agitation Protocol 0.2 MCG/KG/HR Sodium Chloride 1,000 mls @ 200 mls/hr 09/04/16 08:00 09/04/16 13:40 Sodium Chloride 0.9% IV 200 mls/hr .Q5H [facility] Administration Insulin Detemir 20 unit 09/03/16 22:00 09/03/16 21:29 Levemir SC 20 unit HS [facility] Administration Insulin Human Lispro 0 units 09/03/16 12:15 09/04/16 12:34 Humalog SC Not Given Q4H [facility] Protocol Pantoprazole Sodium 40 mg 09/03/16 10:00 09/04/16 09:44 Protonix Inj IVP 40 mg DAILY [facility] Administration - Patient Studies Lab Studies: Microbiology Studies 09/02/16 19:10 Urine Culture - Final Urine,Bacon No Growth (<1,000 CFU/ML) 09/02/16 18:55 MRSA Culture (Admit) - Final Naris MRSA NOT DETECTED Lab Studies 09/04/16 09/04/16 09/04/16 Range/Units 13:25 12:37 12:26 WBC (4.5-11.0) 10^3/ul RBC (3.5-6.1) 10^6/uL Hgb (14.0-18.0) gm/dL Hct (42.0-52.0) % MCV (80.0-105.0) fL MCH (25.0-35.0) pg MCHC (31.0-37.0) g/dl RDW (11.5-14.5) % Plt Count (120.0-450.0) 10^3/uL MPV (7.0-11.0) fl Gran % (50.0-68.0) % Lymph % (Auto) (22.0-35.0) % Kimball % (Auto) (1.0-6.0) % Eos % (Auto) (1.5-5.0) % Baso % (Auto) (0.0-3.0) % Gran # (1.4-6.5) Lymph # (1.2-3.4) Kimball # (0.1-0.6) Eos # (0.0-0.7) Baso # (0.0-2.0) K/mm3 pCO2 (35-45) mm/Hg pO2 (80-100) mm/Hg HCO3 (21-28) mmol/L ABG pH (7.35-7.45) ABG Total CO2 (22-28) mmol.L ABG O2 Saturation (95-98) % ABG O2 Content (15-23) ML/dl ABG Base Excess (-2.0-3.0) mmol/L ABG Hemoglobin (11.7-17.4) g/dL ABG Carboxyhemoglobin (0.5-1.5) % POC ABG HHb (Measured) (0-5) % ABG Methemoglobin (0.0-3.0) % ABG O2 Capacity (16-24) mL/dl Hgb O2 Saturation (95.0-98.0) % FiO2 % Sodium (132-148) mmol/L Potassium (3.6-5.0) mmol/L Chloride (95-110) mmol/L Carbon Dioxide (21-33) mmol/L Anion Gap (10-20) BUN (7-21) mg/dL Creatinine (0.5-1.4) mg/dL Est GFR ( Amer) Est GFR (Non-Af Amer) POC Glucose (mg/dL) 140 H 49 L 43 L (65-110) mg/dL Random Glucose (70-110) mg/dL Calcium (8.4-10.5) mg/dL Phosphorus (2.5-4.5) mg/dL Magnesium (1.7-2.2) mg/dL Total Bilirubin (0.2-1.3) mg/dL AST (15-59) U/L ALT (7-56) U/L Alkaline Phosphatase (38-133) U/L Total Creatine Kinase (35-230) U/L CK-MB (CK-2) (0.0-3.6) ng/mL CK-MB (CK-2) % Total Protein (5.8-8.3) g/dL Albumin (3.0-4.8) g/dL Globulin gm/dL Albumin/Globulin Ratio (1.1-1.8) 09/04/16 09/04/16 09/04/16 Range/Units 08:17 05:15 04:15 WBC (4.5-11.0) 10^3/ul RBC (3.5-6.1) 10^6/uL Hgb (14.0-18.0) gm/dL Hct (42.0-52.0) % MCV (80.0-105.0) fL MCH (25.0-35.0) pg MCHC (31.0-37.0) g/dl RDW (11.5-14.5) % Plt Count (120.0-450.0) 10^3/uL MPV (7.0-11.0) fl Gran % (50.0-68.0) % Lymph % (Auto) (22.0-35.0) % Kimball % (Auto) (1.0-6.0) % Eos % (Auto) (1.5-5.0) % Baso % (Auto) (0.0-3.0) % Gran # (1.4-6.5) Lymph # (1.2-3.4) Kimball # (0.1-0.6) Eos # (0.0-0.7) Baso # (0.0-2.0) K/mm3 pCO2 38 (35-45) mm/Hg pO2 179.0 H (80-100) mm/Hg HCO3 25.8 (21-28) mmol/L ABG pH 7.44 (7.35-7.45) ABG Total CO2 27.0 (22-28) mmol.L ABG O2 Saturation 99.0 H (95-98) % ABG O2 Content 15.0 (15-23) ML/dl ABG Base Excess 1.6 (-2.0-3.0) mmol/L ABG Hemoglobin 10.8 L (11.7-17.4) g/dL ABG Carboxyhemoglobin 1.5 (0.5-1.5) % POC ABG HHb (Measured) 1.0 (0-5) % ABG Methemoglobin 1.0 (0.0-3.0) % ABG O2 Capacity 15.2 L (16-24) mL/dl Hgb O2 Saturation 96.4 (95.0-98.0) % FiO2 40.0 % Sodium (132-148) mmol/L Potassium (3.6-5.0) mmol/L Chloride (95-110) mmol/L Carbon Dioxide (21-33) mmol/L Anion Gap (10-20) BUN (7-21) mg/dL Creatinine (0.5-1.4) mg/dL Est GFR ( Amer) Est GFR (Non-Af Amer) POC Glucose (mg/dL) 78 67 (65-110) mg/dL Random Glucose (70-110) mg/dL Calcium (8.4-10.5) mg/dL Phosphorus (2.5-4.5) mg/dL Magnesium (1.7-2.2) mg/dL Total Bilirubin (0.2-1.3) mg/dL AST (15-59) U/L ALT (7-56) U/L Alkaline Phosphatase (38-133) U/L Total Creatine Kinase (35-230) U/L CK-MB (CK-2) (0.0-3.6) ng/mL CK-MB (CK-2) % Total Protein (5.8-8.3) g/dL Albumin (3.0-4.8) g/dL Globulin gm/dL Albumin/Globulin Ratio (1.1-1.8) 09/04/16 09/03/16 09/03/16 Range/Units 03:45 23:54 20:15 WBC 9.8 D (4.5-11.0) 10^3/ul RBC 3.80 (3.5-6.1) 10^6/uL Hgb 11.5 L (14.0-18.0) gm/dL Hct 32.9 L (42.0-52.0) % MCV 86.6 (80.0-105.0) fL MCH 30.3 (25.0-35.0) pg MCHC 35.0 (31.0-37.0) g/dl RDW 12.9 (11.5-14.5) % Plt Count 223 (120.0-450.0) 10^3/uL MPV 10.1 (7.0-11.0) fl Gran % 80.2 H (50.0-68.0) % Lymph % (Auto) 11.4 L (22.0-35.0) % Kimball % (Auto) 8.4 H (1.0-6.0) % Eos % (Auto) 0.0 L (1.5-5.0) % Baso % (Auto) 0.0 (0.0-3.0) % Gran # 7.83 H (1.4-6.5) Lymph # 1.1 L (1.2-3.4) Kimball # 0.8 H (0.1-0.6) Eos # 0.0 (0.0-0.7) Baso # 0.00 (0.0-2.0) K/mm3 pCO2 (35-45) mm/Hg pO2 (80-100) mm/Hg HCO3 (21-28) mmol/L ABG pH (7.35-7.45) ABG Total CO2 (22-28) mmol.L ABG O2 Saturation (95-98) % ABG O2 Content (15-23) ML/dl ABG Base Excess (-2.0-3.0) mmol/L ABG Hemoglobin (11.7-17.4) g/dL ABG Carboxyhemoglobin (0.5-1.5) % POC ABG HHb (Measured) (0-5) % ABG Methemoglobin (0.0-3.0) % ABG O2 Capacity (16-24) mL/dl Hgb O2 Saturation (95.0-98.0) % FiO2 % Sodium 150 H (132-148) mmol/L Potassium 3.9 (3.6-5.0) mmol/L Chloride 117 H (95-110) mmol/L Carbon Dioxide 30 (21-33) mmol/L Anion Gap 7 L (10-20) BUN 23 H (7-21) mg/dL Creatinine 1.0 (0.5-1.4) mg/dL Est GFR ( Amer) > 60 Est GFR (Non-Af Amer) > 60 POC Glucose (mg/dL) 311 H 276 H (65-110) mg/dL Random Glucose 107 (70-110) mg/dL Calcium 8.0 L (8.4-10.5) mg/dL Phosphorus 2.2 L (2.5-4.5) mg/dL Magnesium 2.5 H (1.7-2.2) mg/dL Total Bilirubin 0.7 (0.2-1.3) mg/dL AST 118 H (15-59) U/L ALT 60 H (7-56) U/L Alkaline Phosphatase 54 (38-133) U/L Total Creatine Kinase 3762 H (35-230) U/L CK-MB (CK-2) 4.9 H (0.0-3.6) ng/mL CK-MB (CK-2) % Cancelled Total Protein 4.7 L (5.8-8.3) g/dL Albumin 2.5 L (3.0-4.8) g/dL Globulin 2.3 gm/dL Albumin/Globulin Ratio 1.1 (1.1-1.8) 09/03/16 09/03/16 09/03/16 Range/Units 14:00 12:02 11:10 WBC (4.5-11.0) 10^3/ul RBC (3.5-6.1) 10^6/uL Hgb (14.0-18.0) gm/dL Hct (42.0-52.0) % MCV (80.0-105.0) fL MCH (25.0-35.0) pg MCHC (31.0-37.0) g/dl RDW (11.5-14.5) % Plt Count (120.0-450.0) 10^3/uL MPV (7.0-11.0) fl Gran % (50.0-68.0) % Lymph % (Auto) (22.0-35.0) % Kimball % (Auto) (1.0-6.0) % Eos % (Auto) (1.5-5.0) % Baso % (Auto) (0.0-3.0) % Gran # (1.4-6.5) Lymph # (1.2-3.4) Kimball # (0.1-0.6) Eos # (0.0-0.7) Baso # (0.0-2.0) K/mm3 pCO2 (35-45) mm/Hg pO2 (80-100) mm/Hg HCO3 (21-28) mmol/L ABG pH (7.35-7.45) ABG Total CO2 (22-28) mmol.L ABG O2 Saturation (95-98) % ABG O2 Content (15-23) ML/dl ABG Base Excess (-2.0-3.0) mmol/L ABG Hemoglobin (11.7-17.4) g/dL ABG Carboxyhemoglobin (0.5-1.5) % POC ABG HHb (Measured) (0-5) % ABG Methemoglobin (0.0-3.0) % ABG O2 Capacity (16-24) mL/dl Hgb O2 Saturation (95.0-98.0) % FiO2 % Sodium (132-148) mmol/L Potassium (3.6-5.0) mmol/L Chloride (95-110) mmol/L Carbon Dioxide (21-33) mmol/L Anion Gap (10-20) BUN (7-21) mg/dL Creatinine (0.5-1.4) mg/dL Est GFR ( Amer) Est GFR (Non-Af Amer) POC Glucose (mg/dL) 183 H 183 H (65-110) mg/dL Random Glucose (70-110) mg/dL Calcium (8.4-10.5) mg/dL Phosphorus (2.5-4.5) mg/dL Magnesium (1.7-2.2) mg/dL Total Bilirubin (0.2-1.3) mg/dL AST (15-59) U/L ALT (7-56) U/L Alkaline Phosphatase (38-133) U/L Total Creatine Kinase 68086 H (35-230) U/L CK-MB (CK-2) 47.7 H (0.0-3.6) ng/mL CK-MB (CK-2) % 0.4 L Total Protein (5.8-8.3) g/dL Albumin (3.0-4.8) g/dL Globulin gm/dL Albumin/Globulin Ratio (1.1-1.8) 09/03/16 09/03/16 09/03/16 Range/Units 10:28 09:01 07:56 WBC (4.5-11.0) 10^3/ul RBC (3.5-6.1) 10^6/uL Hgb (14.0-18.0) gm/dL Hct (42.0-52.0) % MCV (80.0-105.0) fL MCH (25.0-35.0) pg MCHC (31.0-37.0) g/dl RDW (11.5-14.5) % Plt Count (120.0-450.0) 10^3/uL MPV (7.0-11.0) fl Gran % (50.0-68.0) % Lymph % (Auto) (22.0-35.0) % Kimball % (Auto) (1.0-6.0) % Eos % (Auto) (1.5-5.0) % Baso % (Auto) (0.0-3.0) % Gran # (1.4-6.5) Lymph # (1.2-3.4) Kimball # (0.1-0.6) Eos # (0.0-0.7) Baso # (0.0-2.0) K/mm3 pCO2 (35-45) mm/Hg pO2 (80-100) mm/Hg HCO3 (21-28) mmol/L ABG pH (7.35-7.45) ABG Total CO2 (22-28) mmol.L ABG O2 Saturation (95-98) % ABG O2 Content (15-23) ML/dl ABG Base Excess (-2.0-3.0) mmol/L ABG Hemoglobin (11.7-17.4) g/dL ABG Carboxyhemoglobin (0.5-1.5) % POC ABG HHb (Measured) (0-5) % ABG Methemoglobin (0.0-3.0) % ABG O2 Capacity (16-24) mL/dl Hgb O2 Saturation (95.0-98.0) % FiO2 % Sodium (132-148) mmol/L Potassium (3.6-5.0) mmol/L Chloride (95-110) mmol/L Carbon Dioxide (21-33) mmol/L Anion Gap (10-20) BUN (7-21) mg/dL Creatinine (0.5-1.4) mg/dL Est GFR ( Amer) Est GFR (Non-Af Amer) POC Glucose (mg/dL) 190 H 187 H 182 H (65-110) mg/dL Random Glucose (70-110) mg/dL Calcium (8.4-10.5) mg/dL Phosphorus (2.5-4.5) mg/dL Magnesium (1.7-2.2) mg/dL Total Bilirubin (0.2-1.3) mg/dL AST (15-59) U/L ALT (7-56) U/L Alkaline Phosphatase (38-133) U/L Total Creatine Kinase (35-230) U/L CK-MB (CK-2) (0.0-3.6) ng/mL CK-MB (CK-2) % Total Protein (5.8-8.3) g/dL Albumin (3.0-4.8) g/dL Globulin gm/dL Albumin/Globulin Ratio (1.1-1.8) 09/03/16 09/03/16 Range/Units 07:14 06:07 WBC (4.5-11.0) 10^3/ul RBC (3.5-6.1) 10^6/uL Hgb (14.0-18.0) gm/dL Hct (42.0-52.0) % MCV (80.0-105.0) fL MCH (25.0-35.0) pg MCHC (31.0-37.0) g/dl RDW (11.5-14.5) % Plt Count (120.0-450.0) 10^3/uL MPV (7.0-11.0) fl Gran % (50.0-68.0) % Lymph % (Auto) (22.0-35.0) % Kimball % (Auto) (1.0-6.0) % Eos % (Auto) (1.5-5.0) % Baso % (Auto) (0.0-3.0) % Gran # (1.4-6.5) Lymph # (1.2-3.4) Kimball # (0.1-0.6) Eos # (0.0-0.7) Baso # (0.0-2.0) K/mm3 pCO2 (35-45) mm/Hg pO2 (80-100) mm/Hg HCO3 (21-28) mmol/L ABG pH (7.35-7.45) ABG Total CO2 (22-28) mmol.L ABG O2 Saturation (95-98) % ABG O2 Content (15-23) ML/dl ABG Base Excess (-2.0-3.0) mmol/L ABG Hemoglobin (11.7-17.4) g/dL ABG Carboxyhemoglobin (0.5-1.5) % POC ABG HHb (Measured) (0-5) % ABG Methemoglobin (0.0-3.0) % ABG O2 Capacity (16-24) mL/dl Hgb O2 Saturation (95.0-98.0) % FiO2 % Sodium (132-148) mmol/L Potassium (3.6-5.0) mmol/L Chloride (95-110) mmol/L Carbon Dioxide (21-33) mmol/L Anion Gap (10-20) BUN (7-21) mg/dL Creatinine (0.5-1.4) mg/dL Est GFR ( Amer) Est GFR (Non-Af Amer) POC Glucose (mg/dL) 177 H 205 H (65-110) mg/dL Random Glucose (70-110) mg/dL Calcium (8.4-10.5) mg/dL Phosphorus (2.5-4.5) mg/dL Magnesium (1.7-2.2) mg/dL Total Bilirubin (0.2-1.3) mg/dL AST (15-59) U/L ALT (7-56) U/L Alkaline Phosphatase (38-133) U/L Total Creatine Kinase (35-230) U/L CK-MB (CK-2) (0.0-3.6) ng/mL CK-MB (CK-2) % Total Protein (5.8-8.3) g/dL Albumin (3.0-4.8) g/dL Globulin gm/dL Albumin/Globulin Ratio (1.1-1.8) Laboratory Results - last 24 hr 09/03/16 09/03/16 09/03/16 06:07 07:14 07:56 WBC RBC Hgb Hct MCV MCH MCHC RDW Plt Count MPV Gran % Lymph % (Auto) Kimball % (Auto) Eos % (Auto) Baso % (Auto) Gran # Lymph # Kimball # Eos # Baso # pCO2 pO2 HCO3 ABG pH ABG Total CO2 ABG O2 Saturation ABG O2 Content ABG Base Excess ABG Hemoglobin ABG Carboxyhemoglobin POC ABG HHb (Measured) ABG Methemoglobin ABG O2 Capacity Hgb O2 Saturation FiO2 Sodium Potassium Chloride Carbon Dioxide Anion Gap BUN Creatinine Est GFR ( Amer) Est GFR (Non-Af Amer) POC Glucose (mg/dL) 205 H 177 H 182 H Random Glucose Calcium Phosphorus Magnesium Total Bilirubin AST ALT Alkaline Phosphatase Total Creatine Kinase CK-MB (CK-2) CK-MB (CK-2) % Total Protein Albumin Globulin Albumin/Globulin Ratio 09/03/16 09/03/16 09/03/16 09:01 10:28 11:10 WBC RBC Hgb Hct MCV MCH MCHC RDW Plt Count MPV Gran % Lymph % (Auto) Kimball % (Auto) Eos % (Auto) Baso % (Auto) Gran # Lymph # Kimball # Eos # Baso # pCO2 pO2 HCO3 ABG pH ABG Total CO2 ABG O2 Saturation ABG O2 Content ABG Base Excess ABG Hemoglobin ABG Carboxyhemoglobin POC ABG HHb (Measured) ABG Methemoglobin ABG O2 Capacity Hgb O2 Saturation FiO2 Sodium Potassium Chloride Carbon Dioxide Anion Gap BUN Creatinine Est GFR ( Amer) Est GFR (Non-Af Amer) POC Glucose (mg/dL) 187 H 190 H 183 H Random Glucose Calcium Phosphorus Magnesium Total Bilirubin AST ALT Alkaline Phosphatase Total Creatine Kinase CK-MB (CK-2) CK-MB (CK-2) % Total Protein Albumin Globulin Albumin/Globulin Ratio 09/03/16 09/03/16 09/03/16 12:02 14:00 20:15 WBC RBC Hgb Hct MCV MCH MCHC RDW Plt Count MPV Gran % Lymph % (Auto) Kimball % (Auto) Eos % (Auto) Baso % (Auto) Gran # Lymph # Kimball # Eos # Baso # pCO2 pO2 HCO3 ABG pH ABG Total CO2 ABG O2 Saturation ABG O2 Content ABG Base Excess ABG Hemoglobin ABG Carboxyhemoglobin POC ABG HHb (Measured) ABG Methemoglobin ABG O2 Capacity Hgb O2 Saturation FiO2 Sodium Potassium Chloride Carbon Dioxide Anion Gap BUN Creatinine Est GFR ( Amer) Est GFR (Non-Af Amer) POC Glucose (mg/dL) 183 H 276 H Random Glucose Calcium Phosphorus Magnesium Total Bilirubin AST ALT Alkaline Phosphatase Total Creatine Kinase 75117 H CK-MB (CK-2) 47.7 H CK-MB (CK-2) % 0.4 L Total Protein Albumin Globulin Albumin/Globulin Ratio 09/03/16 09/04/16 09/04/16 23:54 03:45 04:15 WBC 9.8 D RBC 3.80 Hgb 11.5 L Hct 32.9 L MCV 86.6 MCH 30.3 MCHC 35.0 RDW 12.9 Plt Count 223 MPV 10.1 Gran % 80.2 H Lymph % (Auto) 11.4 L Kimball % (Auto) 8.4 H Eos % (Auto) 0.0 L Baso % (Auto) 0.0 Gran # 7.83 H Lymph # 1.1 L Kimball # 0.8 H Eos # 0.0 Baso # 0.00 pCO2 pO2 HCO3 ABG pH ABG Total CO2 ABG O2 Saturation ABG O2 Content ABG Base Excess ABG Hemoglobin ABG Carboxyhemoglobin POC ABG HHb (Measured) ABG Methemoglobin ABG O2 Capacity Hgb O2 Saturation FiO2 Sodium 150 H Potassium 3.9 Chloride 117 H Carbon Dioxide 30 Anion Gap 7 L BUN 23 H Creatinine 1.0 Est GFR ( Amer) > 60 Est GFR (Non-Af Amer) > 60 POC Glucose (mg/dL) 311 H 67 Random Glucose 107 Calcium 8.0 L Phosphorus 2.2 L Magnesium 2.5 H Total Bilirubin 0.7 AST 118 H ALT 60 H Alkaline Phosphatase 54 Total Creatine Kinase 3762 H CK-MB (CK-2) 4.9 H CK-MB (CK-2) % Cancelled Total Protein 4.7 L Albumin 2.5 L Globulin 2.3 Albumin/Globulin Ratio 1.1 09/04/16 09/04/16 09/04/16 05:15 08:17 12:26 WBC RBC Hgb Hct MCV MCH MCHC RDW Plt Count MPV Gran % Lymph % (Auto) Kimball % (Auto) Eos % (Auto) Baso % (Auto) Gran # Lymph # Kimball # Eos # Baso # pCO2 38 pO2 179.0 H HCO3 25.8 ABG pH 7.44 ABG Total CO2 27.0 ABG O2 Saturation 99.0 H ABG O2 Content 15.0 ABG Base Excess 1.6 ABG Hemoglobin 10.8 L ABG Carboxyhemoglobin 1.5 POC ABG HHb (Measured) 1.0 ABG Methemoglobin 1.0 ABG O2 Capacity 15.2 L Hgb O2 Saturation 96.4 FiO2 40.0 Sodium Potassium Chloride Carbon Dioxide Anion Gap BUN Creatinine Est GFR ( Amer) Est GFR (Non-Af Amer) POC Glucose (mg/dL) 78 43 L Random Glucose Calcium Phosphorus Magnesium Total Bilirubin AST ALT Alkaline Phosphatase Total Creatine Kinase CK-MB (CK-2) CK-MB (CK-2) % Total Protein Albumin Globulin Albumin/Globulin Ratio 09/04/16 09/04/16 12:37 13:25 WBC RBC Hgb Hct MCV MCH MCHC RDW Plt Count MPV Gran % Lymph % (Auto) Kimball % (Auto) Eos % (Auto) Baso % (Auto) Gran # Lymph # Kimball # Eos # Baso # pCO2 pO2 HCO3 ABG pH ABG Total CO2 ABG O2 Saturation ABG O2 Content ABG Base Excess ABG Hemoglobin ABG Carboxyhemoglobin POC ABG HHb (Measured) ABG Methemoglobin ABG O2 Capacity Hgb O2 Saturation FiO2 Sodium Potassium Chloride Carbon Dioxide Anion Gap BUN Creatinine Est GFR ( Amer) Est GFR (Non-Af Amer) POC Glucose (mg/dL) 49 L 140 H Random Glucose Calcium Phosphorus Magnesium Total Bilirubin AST ALT Alkaline Phosphatase Total Creatine Kinase CK-MB (CK-2) CK-MB (CK-2) % Total Protein Albumin Globulin Albumin/Globulin Ratio Attending/Attestation - Attestation I have personally seen and examined this patient.: Yes I have fully participated in the care of the patient.: Yes I have reviewed all pertinent clinical information: Yes Notes (Text): 09/04/16 16:17 56 y/o M w/ change in mental status after DKA resolved without exact cause determined Pt passed SBT trial daily but is not fully answering questions and following commands . Scheduled for MRI brain to r/o causes Sudden awakening and combative behavior was noted and patient was extubated for safety. Protecting airway and CN intact. Pt not talking and not following commands but moving all extremities. DKA resolved, long acting insulin stopped due to hypoglycemia and sliding scale ordered. Hope to resume diet once mental status is restored. Neurology consult needed , BP WNL Leukocytosis improved, on abx all cx negative L chest wall cellulitis noted. Chantel resolved and Rhabdomyolysis improved as well. cc time 72 min
[2016-09-04] MEDS ORDERED: Dextrose 50% SYRINGE Inj (50 ml) ONE (12:41)
[2016-09-04] MEDS ORDERED: Albuterol 0.042% Inhal Sol (1.25 mg/3 mL) UD IH STA (14:31)
--- NOTE | 2016-09-04 15:51 | PN ---
DATE: 09/04/2016 CCU 128, room 4. This is a 56-year-old male with recent uncontrolled type 1 insulin-dependent diabetes, apparently fou nd unresponsive at home with supervening diabetic ketoacidosis and dehydration, and has since then im proved clinically and metabolically overnight as noted. He was given an insulin drip infusion initia lly for intensive insulin therapy as given. He also received vigorous IV hydration as ordered, and c urrently is still on normal saline running at 200 mL per hour as ordered. His glycemic levels have i mproved, and he is now out of metabolic acidosis as noted. His latest chemistries include a BUN of 23, sodium 150, potassium 3.9, chloride 117, CO2 of 30, gluco se 107, and creatinine 1.0. His glucose values are fluctuating because of nil oral in meal, and subo ptimal oral intake at this time. His glucose levels were 276 at bedtime last night, and it was 107 p rebreakfast this morning, and went down to 49 by noon time with a repeat glucose of 140 mg/dL. So at this time, will hold the basal insulin given as Levemir at 20 units subQ at bedtime daily as gi reba. Will continue the intensive insulin therapy, with glucose levels done every 4 hours using a med ium dose algorithm of Humalog insulin coverage scale as ordered. Will observe his glycemic fluctuati ons, and also his oral intake as tolerated, and then switch him over to a more physiologic basal and bolus insulin regimen as indicated. Will follow and advise accordingly. Rocío Rich MD cc: [id number] TT: 09/04/2016 15:51:11 Confirmation # [id number] Dictation # [id number] nate
[2016-09-04] MEDS: Piperacillin/Tazobact 3.375 gm 100 ML IVPB SCH (17:53)
--- NOTE | 2016-09-04 20:41 | CON ---
DATE: 09/04/2016 REASON FOR CONSULTATION: Altered mental status. HISTORY OF PRESENT ILLNESS: The patient is a 56-year-old male who has been asked for evaluation of a ltered mental status. The patient was admitted after he was found unresponsive. Apparently nobody s poke with him over the last 2 days and then yesterday they found the patient to be unresponsiveness o n his floor covered in feces. The patient was intubated and his metabolic derangements were correcte d. The patient was in DKA. The patient is now extubated. Apparently, the patient had an episode du ring which he started screaming and was agitated and after that he went back to sleep and he was not opening his eyes and resisting his eyes opening. The history is mainly from the chart. The patient was unable to give any history. PAST MEDICAL HISTORY: Includes diabetes mellitus, hypertension, hyperlipidemia. CURRENT MEDICATIONS: Include Flagyl, heparin, Humalog, insulin, cefepime and Protonix. ALLERGIES: No known drug allergies. SOCIAL HISTORY: The patient is not an alcoholic or a drug abuser. No smoking history. FAMILY HISTORY: Unknown. PHYSICAL EXAMINATION: GENERAL: The patient is a middle-aged male lying on the bed, in no acute distress. VITAL SIGNS: His blood pressure is 148/85, heart rate is 80 per minute, breathing at the rate of 16 per minute, temperature is 100.2 degrees Fahrenheit. HEENT: Head is normocephalic, atraumatic. NECK: Supple. There are no carotid bruits. LUNGS: Clear. CARDIOVASCULAR: S1, S2 audible. No murmurs. ABDOMEN: Soft, nontender. Bowel sounds present. NEUROLOGIC: Mental status: The patient is lying on the bed with his eyes closed; however, on repeat ed commands the patient finally opened his eyes and looked at the examiner. He did not follow any co mmands. CRANIAL NERVES: Pupils are 4 mm bilaterally, reactive to light. Extraocular movements are intact. There is no facial asymmetry. He withdraws all extremities symmetrically. Power appears to be 5/5. Plantars downgoing bilaterally. GAIT: Deferred at the moment. MISCELLANEOUS EXAM: Negative Brudzinski sign. Negative Kernig sign. LABORATORY DATA: Labs reviewed, shows a WBC of 26.8 on admission and today it is 9.8, hemoglobin is 11.5, hematocrit is 32.9 and platelets of 233. INR is 1.32. His sodium is 150, potassium 3.9, chlor oneil 117, carbon dioxide content 30, BUN of 23, creatinine of 1.0 and glucose of 107. He had a CT sca n of the head done, which shows no acute intracranial abnormality. I have reviewed the MRI of the br ain, which was done; the report is still awaited. It shows no acute pathology; however, please follo w up the official report. IMPRESSION: Altered mental status, which may be secondary to medication side effect. The patient wa s on propofol and Precedex, which is stopped now. Rule out any seizures. RECOMMENDATIONS: 1. The patient to have an electroencephalogram. 2. Please follow up the official report of the MRI of the brain. 3. Please observe the patient closely. 4. Will consider changing his cefepime to another medications as cefepime may lower seizure threshol d. 5. Please continue supportive care and other treatment. Thank you for the opportunity to participate in the care of this patient. Uriel Alfaro MD cc: [id number] TT: 09/04/2016 20:41:24 Confirmation # [id number] Dictation # [id number] dn
[2016-09-05] MEDS: Insulin Lispro 1 UNITS/0.01 ML SC SCH ×6 (00:15→21:55)
[2016-09-05] MEDS: Piperacillin/Tazobact 3.375 gm 100 ML IVPB SCH ×5 (00:30→23:31)
[2016-09-05] MEDS: Sodium Chloride 0.9% 1,000 ML IV SCH ×3 (02:53→17:30)
[2016-09-05] MEDS: metroNIDAZOLE IV 500 mg/100 ml 100 ML IVPB SCH ×3 (05:49→21:51)
[2016-09-05 06:50] LABS: ADD MANUAL DIFF? NO
[2016-09-05 07:04] LABS: ALB/GLOB RATIO 1.1 (1.1-1.8); ALKALINE PHOSPHATASE 64 U/L (38-133); ALT/SGPT 61 U/L (7-56); AST/SGOT 95 U/L (15-59); BLOOD UREA NITROGEN 18 mg/dL (7-21); CALCIUM 7.7 mg/dL (8.4-10.5); CARBON DIOXIDE 21 mmol/L (21-33); CHLORIDE 112 mmol/L (98-107); GFR AFRICAN-AMERICAN > 60; MAGNESIUM 2.1 mg/dL (1.7-2.2); PHOSPHOROUS 2.5 mg/dL (2.5-4.5); SODIUM 143 mmol/L (132-148); TOTAL PROTEIN 4.8 g/dL (5.8-8.3)
[2016-09-05 07:08] LABS: GRAN # 4.67 (1.4-6.5); HEMATOCRIT 34.4 % (42.0-52.0); LYMPH # 0.8 (1.2-3.4); LYMPH % 13.2 % (22.0-35.0); MEAN CELL VOLUME 86.2 fL (80.0-105.0); MEAN CORPUSCULAR HEMOGLOBIN 30.1 pg (25.0-35.0); MEAN CORPUSCULAR HGB CONC 34.9 g/dl (31.0-37.0); MEAN PLATELET VOLUME 10.3 fl (7.0-11.0); MONO # 0.5 (0.1-0.6); MONO % 8.8 % (1.0-6.0); PLATELET COUNT 186 [, 10^3/uL] (120.0-450.0); RED CELL DISTRIBUTION WIDTH 12.1 % (11.5-14.5)
[2016-09-05 07:22] LABS: GLUCOSE,RANDOM 357 mg/dL (70-110)
[2016-09-05] MEDS ORDERED: cefTRIAXone 1 gm 100 ML IVPB SCH (10:00)
--- NOTE | 2016-09-05 11:45 | PN ---
DATE: 09/05/2016 The patient is lying on the bed, in no acute distress. PHYSICAL EXAMINATION: VITAL SIGNS: His blood pressure is 93/55, heart rate is 79 per minute, breathing at a rate of 16 per minute, temperature is 99.3 degrees Fahrenheit. HEENT: Head is normocephalic, atraumatic. NECK: Supple. There are no carotid bruits. LUNGS: Clear. CARDIOVASCULAR: S1, S2 audible. No murmurs. ABDOMEN: Soft, nontender, bowel sounds present. NEUROLOGIC EXAMINATION: MENTAL STATUS: The patient opens his eyes and looks towards the examiner. He does not follow any co mmands. He does not verbalize. He follows the examiner in the room. CRANIAL NERVES: Pupils are 4 mm bilaterally, reactive to light. Visual scott are full. Extraocula r movements are intact. There is no facial asymmetry. He is moving all 4 extremities to noxious sti muli. Plantars downgoing bilaterally. LABORATORIES: Reviewed, shows WBC of 6.0, hemoglobin of 12.0, hematocrit 34.4 and platelets of 186. Sodium is 143, potassium 4.0, chloride of 112, carbon dioxide content of 21, BUN of 18, creatinine 1 .0, and glucose of 357. IMPRESSION: Altered mental status. This appears to be more of a psychiatric dysfunction than organi c etiology. Rule out any seizures. RECOMMENDATIONS: 1. The patient to have an electroencephalogram. 2. Please follow up the results of the MRI of the brain. 3. The patient to be continued on IV antibiotics. I appreciate changing the antibiotic from cefepim e to Zosyn. 4. Please consider obtaining psychiatric evaluation. 5. Please continue supportive care and other treatment. Thank you for the opportunity to participate in the care of this patient. Uriel Alfaro MD cc: [id number] TT: 09/05/2016 11:45:38 Confirmation # [id number] Dictation # [id number] en
--- NOTE | 2016-09-05 12:23 | MRI ---
PROCEDURE: MRI BRAIN WITHOUT CONTRAST HISTORY: AMS COMPARISON: CT scan 09/02/2016 TECHNIQUE: Multiplanar, multisequence MR images of the brain were obtained without intravenous contrast enhancement. FINDINGS: HEMORRHAGE: None DWI: There is a small focus of restricted perfusion identified in the inferior left cerebellar hemisphere. In addition there is a small area of restricted perfusion seen in the posterior right parieto-occipital lobe. There may be a very tiny subtle additional areas seen in the right occipital lobe. The suggest tiny recent infarcts, more than likely embolic in origin. BRAIN PARENCHYMA: No mass effect or edema. Minor small vessel changes are seen in the white matter tracts. No cortical effacement is seen. No territorial infarct is noted. No cerebellopontine angle masses are noted. No extra-axial collections are seen. VENTRICLES: No hydrocephalus seen. There is a small linear area of signal seen in the frontal horn of the left lateral ventricle probably representing some asymmetric choroid. CRANIUM: Unremarkable. ORBITS: Grossly unremarkable. PARANASAL SINUSES/MASTOIDS: Mild mucosal changes are seen in the sinuses. There is evidence of mild bilateral mastoid air cell disease. VASCULAR SYSTEM: Patent flow at the skullbase region. . OTHER FINDINGS: Cervicomedullary junction is unremarkable. No sellar masses are seen. Visualized parotid glands are unremarkable. Posterior nasopharynx is within normal limits. IMPRESSION: There are few tiny foci of restricted perfusion in the left cerebellar hemisphere and right posterior parietal-occipital lobe suggesting recent infarcts with emboli being the most likely etiology. This agrees with preliminary report.
--- NOTE | 2016-09-05 14:31 | PN ---
DATE: 09/05/2016 LOCATION: CCU 128, room 4. SUBJECTIVE: This is a 56-year-old male with known history of type 1 insulin-dependent diabetes, maría dunn unresponsive at home and was also in diabetic ketoacidosis and dehydration and has since then impro anita clinically and metabolically as noted thereof. His latest chemistries showed a BUN of 18, sodium 143, potassium 4.0, chloride 112, CO2 of 21, glucose 357, and creatinine 1.0. The glucose levels ye sterday were 140-164 with a midday drop of his glucose values as noted, otherwise. So for now, we wi ll actually restart his basal insulin with Levemir to be given as 20 units subcutaneously at bedtime daily to start tonight. We will switch him over from the medium down to the low dose correction scal e for the Humalog algorithm as ordered. We will do a more physiologic glucose monitoring now to be d one a.c. and bedtime as ordered. We will follow and advise accordingly. Rocío Rich MD cc: [id number] TT: 09/05/2016 14:31:21 Confirmation # [id number] Dictation # [id number] mn
--- NOTE | 2016-09-05 18:53 | CP.CCUPN ---
CCU Subjective - Physician Review Events Since Last Encounter (Free Text): 09/05/16 18:49 No events. Pt seen this morning awake and tracking with his eyes. Non verbal . Critical Care Time Spent (in minutes): 65 CCU Objective - Vital Signs / Intake & Output Intake and Output (Last 8hrs): Intake & Output 09/05/16 09/05/16 09/05/16 06:59 14:59 22:59 Weight 185 lb Other: Voiding Method Indwelling Catheter - Physical Exam Head: Positive for: Normocephalic, Swelling (Mild left upper eyelid and left sided facial swelling) Pupils: Positive for: PERRL Extroacular Muscles: Positive for: EOMI Conjunctiva: Positive for: Normal Ears: Positive for: Normal Mouth: Positive for: Moist Mucous Membranes, Dry Pharnyx: Negative for: ERYTHEMA Nose (Internal): Positive for: No Active Bleeding Neck: Negative for: JVD Respiratory/Chest: Positive for: Clear to Auscultation, Good Air Exchange, Respiratory Distress, Accessory Muscle Use, Tachypneic Cardiovascular: Positive for: Regular Rate and Rhythm, Normal S1, S2, Tachycardic. Negative for: Murmurs Abdomen: Positive for: Normal Bowel Sounds. Negative for: Tenderness, Distention, Peritoneal Signs Upper Extremity: Positive for: Normal Inspection, Normal ROM. Negative for: Cyanosis, Edema Lower Extremity: Positive for: Normal Inspection, Normal ROM. Negative for: Edema Neurological: Positive for: GCS=15 Skin: Positive for: Warm, Normal Color. Negative for: Rashes Psychiatric: Positive for: Alert - Medications Active Medications: Active Medications Generic Name Dose Route Start Last Admin Trade Name Freq PRN Reason Stop Dose Admin Heparin Sodium (Porcine) 5,000 units 09/03/16 01:45 09/05/16 14:24 Heparin SC 5,000 units Q8 BECKY Administration Protocol Metronidazole 100 mls @ 100 mls/hr 09/02/16 22:00 09/05/16 14:22 Flagyl IVPB 100 mls/hr Q8 BECKY Administration Protocol Dexmedetomidine HCl 100 mls @ 3.86 mls/hr 09/03/16 12:29 09/04/16 11:50 Precedex 4 Mcg/Ml (100 Ml) IV 0 mcg/kg/hr .Q24H PRN Titration Agitation Protocol 0.2 MCG/KG/HR Sodium Chloride 1,000 mls @ 200 mls/hr 09/04/16 08:00 09/05/16 17:30 Sodium Chloride 0.9% IV 200 mls/hr .Q5H BECKY Administration Piperacillin Sod/Tazobactam Sod 100 mls @ 200 mls/hr 09/04/16 18:00 09/05/16 17 :56 Zosyn 3.375 In Ns 100ml IVPB 200 mls/hr Q6 BECKY Administration Protocol Insulin Detemir 20 unit 09/03/16 22:00 09/03/16 21:29 Levemir SC 20 unit HS BECKY Administration Insulin Human Lispro 0 units 09/05/16 16:30 09/05/16 16:27 Humalog SC 2 units ACHS BECKY Administration Protocol Pantoprazole Sodium 40 mg 09/03/16 10:00 09/05/16 09:42 Protonix Inj IVP 40 mg DAILY BECKY Administration - Patient Studies Lab Studies: Microbiology Studies 09/05/16 05:30 C. difficile Antigen & Toxin A,B (M - Final Stool Lab Studies 09/05/16 09/05/16 Range/Units 06:49 05:30 WBC 6.0 D (4.5-11.0) 10^3/ul RBC 3.99 (3.5-6.1) 10^6/uL Hgb 12.0 L (14.0-18.0) gm/dL Hct 34.4 L (42.0-52.0) % MCV 86.2 (80.0-105.0) fL MCH 30.1 (25.0-35.0) pg MCHC 34.9 (31.0-37.0) g/dl RDW 12.1 (11.5-14.5) % Plt Count 186 (120.0-450.0) 10^3/uL MPV 10.3 (7.0-11.0) fl Gran % 78.0 H (50.0-68.0) % Lymph % (Auto) 13.2 L (22.0-35.0) % [place] % (Auto) 8.8 H (1.0-6.0) % Eos % (Auto) 0.0 L (1.5-5.0) % Baso % (Auto) 0.0 (0.0-3.0) % Gran # 4.67 (1.4-6.5) Lymph # 0.8 L (1.2-3.4) [place] # 0.5 (0.1-0.6) Eos # 0.0 (0.0-0.7) Baso # 0.00 (0.0-2.0) K/mm3 Sodium 143 (132-148) mmol/L Potassium 4.0 (3.6-5.0) mmol/L Chloride 112 H (98-107) mmol/L Carbon Dioxide 21 (21-33) mmol/L Anion Gap 14 (10-20) BUN 18 (7-21) mg/dL Creatinine 1.0 (0.5-1.4) mg/dL Est GFR ( Amer) > 60 Est GFR (Non-Af Amer) > 60 Random Glucose 357 H* (70-110) mg/dL Calcium 7.7 L (8.4-10.5) mg/dL Phosphorus 2.5 (2.5-4.5) mg/dL Magnesium 2.1 (1.7-2.2) mg/dL Total Bilirubin 1.0 (0.2-1.3) mg/dL AST 95 H (15-59) U/L ALT 61 H (7-56) U/L Alkaline Phosphatase 64 (38-133) U/L Total Creatine Kinase 2472 H (35-230) U/L CK-MB (CK-2) 1.8 (0.0-3.6) ng/mL CK-MB (CK-2) % Cancelled Total Protein 4.8 L (5.8-8.3) g/dL Albumin 2.5 L (3.0-4.8) g/dL Globulin 2.2 gm/dL Albumin/Globulin Ratio 1.1 (1.1-1.8) Procalcitonin 0.82 H (0.19-0.49) NG/ML Stool Occult Blood Positive H (NEGATIVE) Laboratory Results - last 24 hr 09/05/16 09/05/16 05:30 06:49 WBC 6.0 D RBC 3.99 Hgb 12.0 L Hct 34.4 L MCV 86.2 MCH 30.1 MCHC 34.9 RDW 12.1 Plt Count 186 MPV 10.3 Gran % 78.0 H Lymph % (Auto) 13.2 L [place] % (Auto) 8.8 H Eos % (Auto) 0.0 L Baso % (Auto) 0.0 Gran # 4.67 Lymph # 0.8 L [place] # 0.5 Eos # 0.0 Baso # 0.00 Sodium 143 Potassium 4.0 Chloride 112 H Carbon Dioxide 21 Anion Gap 14 BUN 18 Creatinine 1.0 Est GFR ( Amer) > 60 Est GFR (Non-Af Amer) > 60 Random Glucose 357 H* Calcium 7.7 L Phosphorus 2.5 Magnesium 2.1 Total Bilirubin 1.0 AST 95 H ALT 61 H Alkaline Phosphatase 64 Total Creatine Kinase 2472 H CK-MB (CK-2) 1.8 CK-MB (CK-2) % Cancelled Total Protein 4.8 L Albumin 2.5 L Globulin 2.2 Albumin/Globulin Ratio 1.1 Procalcitonin 0.82 H Stool Occult Blood Positive H Fingerstick Blood Sugar Results: 350 Critical Care Progress Note - Ventilator Checklist Daily Sedation Vacation: Yes Daily Assessment of Readiness to Wean: Yes Assessment/Plan - Assessment and Plan (Free Text) Assessment: 56 y/o M s/p resolution of DKA s/p Respiratory failure and AG met acidosis Currently mental status slowly improving. MRI done yesterday shows punctate infarct , not explaining the symptoms at hand Will need repeat ECHO, due to the new infarcts, could be embolic in nature? Hx of bicuspid aortic valve. Also carotid dopplers. Off all sedatives, no focal deficits . non verbal. No further fevers, leukocytosis improved. On broad spectrum abx , all cx negative . If new fevers start, would consider encephalitis and would need LP. PT/OT needed dvt p- heparin sq tid cc time 72 min
[2016-09-05] MEDS: Insulin Detemir 100 units/ml Vial (Levemir) SC SCH (23:42)
[2016-09-06] MEDS: Sodium Chloride 0.9% 1,000 ML IV SCH ×6 (00:30→16:45)
[2016-09-06] MEDS: Piperacillin/Tazobact 3.375 gm 100 ML IVPB SCH ×3 (05:01→17:53)
[2016-09-06] MEDS: metroNIDAZOLE IV 500 mg/100 ml 100 ML IVPB SCH (05:02)
[2016-09-06 05:56] LABS: ADD MANUAL DIFF? NO
[2016-09-06 06:12] LABS: GRAN # 4.27 (1.4-6.5); GRAN % 74.2 % (50.0-68.0); HEMATOCRIT 33.5 % (42.0-52.0); LYMPH % 17.6 % (22.0-35.0); MEAN CELL VOLUME 84.2 fL (80.0-105.0); MEAN CORPUSCULAR HEMOGLOBIN 29.9 pg (25.0-35.0); MEAN CORPUSCULAR HGB CONC 35.5 g/dl (31.0-37.0); MEAN PLATELET VOLUME 10.2 fl (7.0-11.0); MONO # 0.5 (0.1-0.6); MONO % 8.2 % (1.0-6.0); PLATELET COUNT 220 [, 10^3/uL] (120.0-450.0); RED CELL DISTRIBUTION WIDTH 11.9 % (11.5-14.5); WHITE BLOOD COUNT 5.8 [, 10^3/ul] (4.5-11.0)
[2016-09-06 06:21] LABS: ALB/GLOB RATIO 1.1 (1.1-1.8); ALKALINE PHOSPHATASE 65 U/L (38-133); ALT/SGPT 61 U/L (7-56); AST/SGOT 64 U/L (15-59); BILIRUBIN,TOTAL 0.7 mg/dL (0.2-1.3); BLOOD UREA NITROGEN 18 mg/dL (7-21); CALCIUM 8.1 mg/dL (8.4-10.5); CARBON DIOXIDE 17 mmol/L (21-33); CHLORIDE 112 mmol/L (98-107); GFR AFRICAN-AMERICAN > 60; GLUCOSE,RANDOM 269 mg/dL (70-110); MAGNESIUM 2.1 mg/dL (1.7-2.2); PHOSPHOROUS 3.1 mg/dL (2.5-4.5); POTASSIUM 3.8 mmol/L (3.6-5.0); SODIUM 145 mmol/L (132-148); TOTAL PROTEIN 4.8 g/dL (5.8-8.3)
--- NOTE | 2016-09-06 07:36 | CP.CCUPN ---
<Ema Romero - Last Filed: 09/06/16 15:29> CCU Subjective - Physician Review Events Since Last Encounter (Free Text): 09/06/16 15:29 Patient seen and examined bedside. No acute events overnight. Patient trying to speak more today. Saying 2-3 words at a time to family members. Patient appears comfortable on NS, satting in high 90's-100%. Not answering orientation and ROS questions to physicians. Only said the word "yes" to this chart writer when asked " can you squeeze my hand," however effort to do so was minimal. Patient was later seen lifting his arms and hugging his daughter. Critical Care Time Spent (in minutes): 40 CCU Objective - Vital Signs / Intake & Output Vital Signs (Last 4 hours): Vital Signs Temp Pulse Resp BP Pulse Ox 09/06/16 04:00 100 F H 72 18 133/67 98 Intake and Output (Last 8hrs): Intake & Output 09/05/16 09/06/16 09/06/16 22:59 06:59 14:59 Intake Total 2200 2000 Output Total 1700 2300 Balance 500 -300 Weight 179 lb 11.2 oz Intake: IV 2200 2000 Right Femoral 2200 2000 Output: Urine 1700 2300 Urethral (Bacon) 1700 2300 Other: Voiding Method Indwelling Catheter # Bowel Movements 1 1 - Physical Exam Head: Positive for: Normocephalic, Swelling (Mild left upper eyelid and left sided facial swelling, left chest swelling likley due to trauma) Pupils: Positive for: PERRL Extroacular Muscles: Positive for: EOMI Conjunctiva: Positive for: Normal Ears: Positive for: Normal Mouth: Positive for: Moist Mucous Membranes, Dry Pharnyx: Negative for: ERYTHEMA Nose (Internal): Positive for: No Active Bleeding Neck: Negative for: JVD Respiratory/Chest: Positive for: Clear to Auscultation, Good Air Exchange, Respiratory Distress, Accessory Muscle Use, Tachypneic Cardiovascular: Positive for: Regular Rate and Rhythm, Normal S1, S2, Tachycardic. Negative for: Murmurs Abdomen: Positive for: Normal Bowel Sounds. Negative for: Tenderness, Distention, Peritoneal Signs Upper Extremity: Positive for: Normal Inspection, Normal ROM. Negative for: Cyanosis, Edema Lower Extremity: Positive for: Normal Inspection, Normal ROM. Negative for: Edema Neurological: Positive for: GCS=15 Skin: Positive for: Warm, Normal Color. Negative for: Rashes Psychiatric: Positive for: Alert Other physical findings (Free Text): Catatonic at times, improving slowly - Medications Active Medications: Active Medications Generic Name Dose Route Start Last Admin Trade Name Freq PRN Reason Stop Dose Admin Heparin Sodium (Porcine) 5,000 units 09/03/16 01:45 09/06/16 05:01 Heparin SC 5,000 units Q8 BECKY Administration Protocol Metronidazole 100 mls @ 100 mls/hr 09/02/16 22:00 09/06/16 05:02 Flagyl IVPB 100 mls/hr Q8 [facility] Administration Protocol Dexmedetomidine HCl 100 mls @ 3.86 mls/hr 09/03/16 12:29 09/04/16 11:50 Precedex 4 Mcg/Ml (100 Ml) IV 0 mcg/kg/hr .Q24H PRN Titration Agitation Protocol 0.2 MCG/KG/HR Sodium Chloride 1,000 mls @ 200 mls/hr 09/04/16 08:00 09/06/16 06:30 Sodium Chloride 0.9% IV 200 mls/hr .Q5H BECKY Administration Piperacillin Sod/Tazobactam Sod 100 mls @ 200 mls/hr 09/04/16 18:00 09/06/16 05 :01 Zosyn 3.375 In Ns 100ml IVPB 200 mls/hr Q6 BECKY Administration Protocol Insulin Detemir 20 unit 09/03/16 22:00 09/05/16 23:42 Levemir SC 20 unit HS BECKY Administration Insulin Human Lispro 0 units 09/05/16 16:30 09/05/16 21:55 Humalog SC Not Given ACHS BECKY Protocol Pantoprazole Sodium 40 mg 09/03/16 10:00 09/05/16 09:42 Protonix Inj IVP 40 mg DAILY BECKY Administration - Patient Studies Lab Studies: Microbiology Studies 09/05/16 05:30 C. difficile Antigen & Toxin A,B (M - Final Stool Lab Studies 09/06/16 09/05/16 Range/Units 05:30 06:49 WBC 5.8 6.0 D (4.5-11.0) 10^3/ul RBC 3.98 3.99 (3.5-6.1) 10^6/uL Hgb 11.9 L 12.0 L (14.0-18.0) gm/dL Hct 33.5 L 34.4 L (42.0-52.0) % MCV 84.2 86.2 (80.0-105.0) fL MCH 29.9 30.1 (25.0-35.0) pg MCHC 35.5 34.9 (31.0-37.0) g/dl RDW 11.9 12.1 (11.5-14.5) % Plt Count 220 186 (120.0-450.0) 10^3/uL MPV 10.2 10.3 (7.0-11.0) fl Gran % 74.2 H 78.0 H (50.0-68.0) % Lymph % (Auto) 17.6 L 13.2 L (22.0-35.0) % Rankin % (Auto) 8.2 H 8.8 H (1.0-6.0) % Eos % (Auto) 0.0 L 0.0 L (1.5-5.0) % Baso % (Auto) 0.0 0.0 (0.0-3.0) % Gran # 4.27 4.67 (1.4-6.5) Lymph # 1.0 L 0.8 L (1.2-3.4) Rankin # 0.5 0.5 (0.1-0.6) Eos # 0.0 0.0 (0.0-0.7) Baso # 0.00 0.00 (0.0-2.0) K/mm3 Sodium 145 (132-148) mmol/L Potassium 3.8 (3.6-5.0) mmol/L Chloride 112 H (98-107) mmol/L Carbon Dioxide 17 L (21-33) mmol/L Anion Gap 20 (10-20) BUN 18 (7-21) mg/dL Creatinine 1.0 (0.5-1.4) mg/dL Est GFR ( Amer) > 60 Est GFR (Non-Af Amer) > 60 Random Glucose 269 H (70-110) mg/dL Calcium 8.1 L (8.4-10.5) mg/dL Phosphorus 3.1 (2.5-4.5) mg/dL Magnesium 2.1 (1.7-2.2) mg/dL Total Bilirubin 0.7 (0.2-1.3) mg/dL AST 64 H (15-59) U/L ALT 61 H (7-56) U/L Alkaline Phosphatase 65 (38-133) U/L Total Creatine Kinase 1202 H (35-230) U/L CK-MB (CK-2) 1.3 1.8 (0.0-3.6) ng/mL CK-MB (CK-2) % Cancelled Cancelled Total Protein 4.8 L (5.8-8.3) g/dL Albumin 2.5 L (3.0-4.8) g/dL Globulin 2.3 gm/dL Albumin/Globulin Ratio 1.1 (1.1-1.8) Procalcitonin 0.82 H (0.19-0.49) NG/ML Laboratory Results - last 24 hr 09/05/16 09/06/16 06:49 05:30 WBC 6.0 D 5.8 RBC 3.99 3.98 Hgb 12.0 L 11.9 L Hct 34.4 L 33.5 L MCV 86.2 84.2 MCH 30.1 29.9 MCHC 34.9 35.5 RDW 12.1 11.9 Plt Count 186 220 MPV 10.3 10.2 Gran % 78.0 H 74.2 H Lymph % (Auto) 13.2 L 17.6 L Rankin % (Auto) 8.8 H 8.2 H Eos % (Auto) 0.0 L 0.0 L Baso % (Auto) 0.0 0.0 Gran # 4.67 4.27 Lymph # 0.8 L 1.0 L Rankin # 0.5 0.5 Eos # 0.0 0.0 Baso # 0.00 0.00 Sodium 145 Potassium 3.8 Chloride 112 H Carbon Dioxide 17 L Anion Gap 20 BUN 18 Creatinine 1.0 Est GFR ( Amer) > 60 Est GFR (Non-Af Amer) > 60 Random Glucose 269 H Calcium 8.1 L Phosphorus 3.1 Magnesium 2.1 Total Bilirubin 0.7 AST 64 H ALT 61 H Alkaline Phosphatase 65 Total Creatine Kinase 1202 H CK-MB (CK-2) 1.8 1.3 CK-MB (CK-2) % Cancelled Cancelled Total Protein 4.8 L Albumin 2.5 L Globulin 2.3 Albumin/Globulin Ratio 1.1 Procalcitonin 0.82 H Fingerstick Blood Sugar Results: 287 Review of Systems - Review of Systems Systems not reviewed;Unavailable: Altered Mental Status Critical Care Progress Note - Ventilator Checklist PUD Prophalyxis: Yes DVT Prophylaxis: Yes Assessment/Plan - Assessment and Plan (Free Text) Assessment: 56 yo M w h/o DM1, HTN, HLD, bicuspid aortic valve found unresponsive at home admitted to ICU in DKA, sepsis, encephalopathy, rhabdomyolysis, CHANTEL, electrolyte abnormalities now s/p extubation Plan: Neuro: EEG shows moderate bihemispheric cerebral dysfunction. No epileptiform activity is seen MRI brain without contrast shows a few time foci of restricted perfusion in the left cerebellar hemisphere and right posterior perietal-occipital lobe suggesting recent infarcts with emboli being the most likely etiology Will obtain Carotid duplex to r/o source of embolic CVAs Septic/Metabolic encephalopathy slowly improving. Will DC flagyl as per neuro recs as this can also cause encephalopathy Off all sedation at this time. Hold all benzos. Psych: Psychiatry consult noted and sincerely appreciated - likely hypoactive delirium with catatonia, improving Now on Olanzaprine PRN as per psych recs. Holding any banzos as patient did not tolerate Ativan Pulm: s/p successful extubation. Continue to monitor respiratory status Maintain SpO2>90. Aspiration precautions. CV: 2D ECHO was very limited, LVEF 74%. New ECHO to evaluate bicuspid aortic valve shows moderate valvular , trace AR, mild-moderate pHTN. Will consult cardiology. Recs sincerely appreciated. Troponins were trended and were negative x4 GI: GI ppx. NPO. OGT Transaminitis slowly improving. Continue to monitor Endo: DKA resolved. Hb A1C 7.9. Continue Levemir, Lispro low SSI as per endo recs. No further hypoglycemic episodes Maintain euglycemia 140-180 Renal: CHANTEL likely 2/2 rhabdo +/- sepsis +/- dehydration - resolved. Continue to monitor renal function. I&Os. 4L output in past 24 hours Rhabdo improving. Continue to trend CPK. Continue NS @200cc/hr Renal US unremarkable ID: Leukocytosis resolved. Continue Cefepime. Blood cultures negative at 3 days. Final urine cultures negative. Lactic acidosis resolved 1.5 from 2.7. Procalcitonin trending down 5.85 --> 0.26 CT A/P with PO contrast showed infiltration in subcutaneous soft tissue - possible cellulitis, 2cm soft tissue mass along right lateral distal esophagus. Heme: Hb 11.9, likely dilutional, stable. No signs of bleeding. Continue to monitor DVT/GI ppx: Thin nectar honey diet as per speech pathology recs, Protonix, SQH, PT/OT - Date & Time Date: 09/06/16 Time: 15:41 <eRa Alfaro MD H - Last Filed: 09/06/16 17:54> CCU Objective - Vital Signs / Intake & Output Vital Signs (Last 4 hours): Vital Signs Temp Pulse Resp BP Pulse Ox 09/06/16 16:00 98.9 F 67 29 H 155/82 H 97 Intake and Output (Last 8hrs): Intake & Output 09/06/16 09/06/16 09/06/16 06:59 14:59 22:59 Intake Total 2000 Output Total 2300 Balance -300 Weight 179 lb 11.2 oz Intake: IV 2000 Right Femoral 2000 Output: Urine 2300 Urethral (Bacon) 2300 Other: Voiding Method Indwelling Catheter Indwelling Catheter # Bowel Movements 1 - Medications Active Medications: Active Medications Generic Name Dose Route Start Last Admin Trade Name Freq PRN Reason Stop Dose Admin Heparin Sodium (Porcine) 5,000 units 09/03/16 01:45 09/06/16 14:09 Heparin SC 5,000 units Q8 [facility] Administration Protocol Piperacillin Sod/Tazobactam Sod 100 mls @ 200 mls/hr 09/04/16 18:00 09/06/16 11 :57 Zosyn 3.375 In Ns 100ml IVPB 200 mls/hr Q6 [facility] Administration Protocol Sodium Chloride 1,000 mls @ 100 mls/hr 09/06/16 16:45 Sodium Chloride 0.9% IV .Q10H [facility]ECKY Insulin Detemir 20 unit 09/03/16 22:00 09/05/16 23:42 Levemir SC 20 unit HS BECKY Administration Insulin Human Lispro 0 units 09/05/16 16:30 09/06/16 17:12 Humalog SC Not Given ACHS BECKY Protocol Olanzapine 5 mg 09/06/16 08:56 09/06/16 14:55 Zyprexa Zydis PO 5 mg DAILY PRN Administration psychosis, agitation, AMS Protocol Pantoprazole Sodium 40 mg 09/03/16 10:00 09/06/16 09:18 Protonix Inj IVP 40 mg DAILY BECKY Administration - Patient Studies Lab Studies: Lab Studies 09/06/16 09/06/16 Range/Units 16:15 05:30 WBC 5.8 (4.5-11.0) 10^3/ul RBC 3.98 (3.5-6.1) 10^6/uL Hgb 11.9 L (14.0-18.0) gm/dL Hct 33.5 L (42.0-52.0) % MCV 84.2 (80.0-105.0) fL MCH 29.9 (25.0-35.0) pg MCHC 35.5 (31.0-37.0) g/dl RDW 11.9 (11.5-14.5) % Plt Count 220 (120.0-450.0) 10^3/uL MPV 10.2 (7.0-11.0) fl Gran % 74.2 H (50.0-68.0) % Lymph % (Auto) 17.6 L (22.0-35.0) % Rankin % (Auto) 8.2 H (1.0-6.0) % Eos % (Auto) 0.0 L (1.5-5.0) % Baso % (Auto) 0.0 (0.0-3.0) % Gran # 4.27 (1.4-6.5) Lymph # 1.0 L (1.2-3.4) Rankin # 0.5 (0.1-0.6) Eos # 0.0 (0.0-0.7) Baso # 0.00 (0.0-2.0) K/mm3 Sodium 145 (132-148) mmol/L Potassium 3.8 (3.6-5.0) mmol/L Chloride 112 H (98-107) mmol/L Carbon Dioxide 17 L (21-33) mmol/L Anion Gap 20 (10-20) BUN 18 (7-21) mg/dL Creatinine 1.0 (0.5-1.4) mg/dL Est GFR ( Amer) > 60 Est GFR (Non-Af Amer) > 60 POC Glucose (mg/dL) 121 H (65-110) mg/dL Random Glucose 269 H (70-110) mg/dL Calcium 8.1 L (8.4-10.5) mg/dL Phosphorus 3.1 (2.5-4.5) mg/dL Magnesium 2.1 (1.7-2.2) mg/dL Total Bilirubin 0.7 (0.2-1.3) mg/dL AST 64 H (15-59) U/L ALT 61 H (7-56) U/L Alkaline Phosphatase 65 (38-133) U/L Total Creatine Kinase 1202 H (35-230) U/L CK-MB (CK-2) 1.3 (0.0-3.6) ng/mL CK-MB (CK-2) % Cancelled Total Protein 4.8 L (5.8-8.3) g/dL Albumin 2.5 L (3.0-4.8) g/dL Globulin 2.3 gm/dL Albumin/Globulin Ratio 1.1 (1.1-1.8) Laboratory Results - last 24 hr 09/06/16 09/06/16 05:30 16:15 WBC 5.8 RBC 3.98 Hgb 11.9 L Hct 33.5 L MCV 84.2 MCH 29.9 MCHC 35.5 RDW 11.9 Plt Count 220 MPV 10.2 Gran % 74.2 H Lymph % (Auto) 17.6 L Rankin % (Auto) 8.2 H Eos % (Auto) 0.0 L Baso % (Auto) 0.0 Gran # 4.27 Lymph # 1.0 L Rankin # 0.5 Eos # 0.0 Baso # 0.00 Sodium 145 Potassium 3.8 Chloride 112 H Carbon Dioxide 17 L Anion Gap 20 BUN 18 Creatinine 1.0 Est GFR ( Amer) > 60 Est GFR (Non-Af Amer) > 60 POC Glucose (mg/dL) 121 H Random Glucose 269 H Calcium 8.1 L Phosphorus 3.1 Magnesium 2.1 Total Bilirubin 0.7 AST 64 H ALT 61 H Alkaline Phosphatase 65 Total Creatine Kinase 1202 H CK-MB (CK-2) 1.3 CK-MB (CK-2) % Cancelled Total Protein 4.8 L Albumin 2.5 L Globulin 2.3 Albumin/Globulin Ratio 1.1 Critical Care Progress Note - Nutrition Nutrition: Nutrition Category Date Time Status Consistent Carbohydrate [DIET] Diets 09/06/16 Dinner Ordered Attending/Attestation - Attestation I have personally seen and examined this patient.: Yes I have fully participated in the care of the patient.: Yes I have reviewed all pertinent clinical information: Yes Notes (Text): 09/06/16 17:52 56 y/o M s/p VDRF an DKA Extubated and now starting to follow some commands. The patient also very catatonic with speech delay. Started on Zyprexa odt and d/w Psychiatry . Speech therapy started . PT/OT needed. MRI Brain noted to show 2 new punctate infarct , r/o emblic concern. ECHo repeated to evaluate Aortic valve ( bicuspid) and r/o and to r/o vegetation and clot. Carotid Dopplers pending. cc time 65 min
[2016-09-06] MEDS: Insulin Lispro 1 UNITS/0.01 ML SC SCH ×4 (08:18→21:25)
--- NOTE | 2016-09-06 10:56 | PN ---
DATE: 09/06/2016 The patient is lying on the bed, in no acute distress. PHYSICAL EXAMINATION: VITAL SIGNS: His blood pressure is 169/80, heart rate is 62 per minute, breathing at a rate of 16 pe r minute, temperature is 98.7 degrees Fahrenheit. HEENT: Normocephalic, atraumatic. NECK: Supple. There are no carotid bruits. LUNGS: Clear. CARDIOVASCULAR: S1, S2 audible. No murmurs. ABDOMEN: Soft and nontender. Bowel sounds are present. NEUROLOGIC EXAMINATION: MENTAL STATUS: The patient is awake and alert. He looks at the examiner. He did answer my question as to what is your name and he said Clyde. He also repeats the questions. He is not following comm ands. CRANIAL NERVE EXAMINATION: Pupils are 4 mm bilaterally reactive to light. Visual scott are full. Extraocular movements are intact. There is no facial asymmetry. Palate is upgoing bilaterally and t ongue is midline. MOTOR EXAMINATION: Tone is normal. Power is 5/5 as he withdraws all extremities to noxious painful stimuli. Plantars downgoing bilaterally. LABORATORY DATA: Labs reviewed, shows WBC of 5.8, hemoglobin of 11.9, hematocrit 33.5, platelets of 220. His sodium is 145, potassium 3.8, chloride 112, carbon dioxide 17, BUN of 18, creatinine 1.0, a nd glucose of 269. IMPRESSION: Altered mental status, which appears more to be a psychiatric dysfunction rather than or ganic etiology. RECOMMENDATIONS: 1. The patient had an electroencephalogram, will follow up the results. 2. The patient to be continued on IV antibiotics. 3. The patient is slowly improving. 4. Please continue other treatment and supportive care. Thank you for the opportunity to participate in the care of this patient. Uriel Alfaro MD cc: [id number] TT: 09/06/2016 10:55:48 Confirmation # [id number] Dictation # [id number] damir
--- NOTE | 2016-09-06 11:08 | EEG ---
DATE: 09/06/2016 INTRODUCTION: This is a digitally recorded EEG monitoring using standard EEG montages. BACKGROUND RHYTHM: The EEG shows a background activity of 5-6 Hz theta activity in parietooccipital region. The EEG activity is bilaterally symmetrical and synchronous. EKG artifact is noted througho ut this EEG recording. A small amount of myogenic artifact also noticed in this EEG recording. ABNORMAL POTENTIALS: No spikes, sharp waves or focal slowing was seen. PHOTIC STIMULATION AND HYPERVENTILATION: Photic stimulation did not reveal any abnormality. Hyperve ntilation was not performed. IMPRESSION: Abnormal electroencephalogram. The above findings are consistent with moderate bihemisp heric cerebral dysfunction. No epileptiform activity seen in this electroencephalogram recording. Uriel Alfaro MD cc: [phone] TT: 09/06/2016 11:08:18 Confirmation # [id number] Dictation # [id number] en
--- NOTE | 2016-09-06 11:43 | PN ---
DATE: 09/05/2016 HISTORY: The patient is a 56-year-old who was admitted to [facility] on 09/02 after piotr g found unresponsive at home. It is unknown how long he was unresponsive and down at home, possibly 24-48 hours. He was admitted, intubated in the Emergency Room, was treated with IV fluids, put on an insulin drip for DKA. He is also being treated for rhabdomyolysis pressure given as needed. When s een today, the family is at bedside. LABORATORY DATA: His CK was 10,858 on admission, is now down to 2472. AST, ALT, which were 118 and 60 respectively, are now down to 95 and 61. His renal functions are stable with a BUN 18 and creatin ine 1.0. Sodium 143, potassium 4.0. His white blood cell count is down to 6.0, hemoglobin and hemat ocrit 12.0 and 34.4 respectively. He was successfully extubated earlier. At this point his eyes are open; however, he does not follow commands. He does not respond. His at bedside did say that he looked at her earlier and said I love you, however, could not elicit any response from her talking to him when I was present. An MRI has been ordered because of his mental status and we are continuing to follow the patient closely an d treat him as needed. Zia Neil MD cc: [phone] TT: 09/06/2016 11:42:06 Confirmation # [id number] Dictation # [id number] nate
--- NOTE | 2016-09-06 11:49 | CON ---
DATE: 09/06/2016 HISTORY OF PRESENT ILLNESS: Shortly, the patient is a 56-year-old male with not known previous psych iatric history. The patient has multiple medical issues, diabetes, hyperlipidemia, hypertension. Th e patient was brought in by EMS after being found unresponsive by family. Psych consult was called f or evaluation of change in mental status. The patient is in catatonic state, he is not talking, not moving. The patient was seen today at the morning time. Previous history reviewed. The patient had only 1 Emergency Room visit in 2011 and was seen by Dr. St back then. There is no psych history , at least in [facility] system. The patient was seen and examined, discussed with attending in CCU. As per report, patient was intubated. The patient was found to have diabetic ketoacidosis. The pat ient had episodes of agitation after Ativan IV push was given. Afterwards, patient went into deep sl eep and was not waking up for 7 hours. This curriculum writer thinks that it could be related to Ativan or it c ould be related to a cause of hypoactive delirium or it could be related to catatonia as . This curriculum writer tried to evaluate the patient. The patient was given only 1-word answers. The patient said "hello" and there is no option to have a meaningful conversation. VITAL SIGNS: Reviewed. Temperature was 100 today at 4:00 a.m. Pulse is 62, blood pressure 169/80, respirations 18, oxygen saturation is 96. MEDICATIONS: Reviewed. Heparin, Levemir, Humalog, Flagyl, Protonix, Zosyn, sodium chloride. The patient failed speech and swallow and was not able to swallow and that is why Zyprexa Zydis 5 mg will be given to the patient in order to help with the psychotic symptoms and periods of agitation. LABORATORY DATA: Labs were reviewed. At the time of admission, the patient's WBC cells were 26, whi ch is trending down. WBC cells today is 5.8, hemoglobin 11.9, hematocrit 33.5. Chemistry: Glucose on the was 357 and it is getting better. Stool occult blood is positive. Toxicology is negativ e for any substances. Alcohol less than 10. Microbiology reviewed. Discussed with CCU attending. PAST PSYCHIATRIC HISTORY: Unknown. Neurology report is reviewed. The patient also had MRI. There are new tiny foci of restricted perfu kitty in the left cerebral hemisphere and right posterior parietal occipital lobe suggesting recent in farct with emboli being the most likely etiology. Multiple tests were done. As per Dr. Alfaro, neurol ogist, patient's MRI changes are not related to the patient's presentation at the present moment. MENTAL STATUS EXAMINATION: The patient is lying down, not in acute distress, multiple tattoos on upp er extremities. Intense eye contact. The patient was giving only 1-word answers, "hello." This wri ter is not sure what is the thought process and thought content, but patient had episodes of agitatio n and trying to climb off the bed and needed to be medicated. Insight and judgment are limited at pr esent moment. Impulses are unpredictable. IMPRESSION: Most likely the patient had delirium due to multiple medical issues including diabetic k etoacidosis. The patient also has hypertension, hyperlipidemia, bicuspid aortic valve. The patient has sepsis, encephalopathy, rhabdomyolysis, acute kidney injury, electrolyte abnormalitie s. The patient was intubated, extubated. Leukocytosis, which is resolved. Most likely, patient has combination of medical issues which could give patient presentation of hypoactive, hyperactive delir ium with catatonia. PLAN: The plan was discussed in detail with the attending in CCU. This curriculum writer suggested Zyprexa Zyd is 5 mg because patient was not able to swallow and failed speech and swallow evaluation, it is disso lvable and it will not give patient risk of choking. At the same time, this curriculum writer suggested small d ose of Ativan scheduled, but as per ICU attending, patient did not tolerate Ativan, was sleeping for 7 hours. It is up to the medical team, but this curriculum writer thinks patient will greatly benefit from that . At the same time, collaterals from the family needs to be obtained. As per [facility] history, jerry louis has never been admitted to the psychiatric inpatient unit or never been evaluated. Urine drug s creen was negative. We will follow up and advise accordingly. Thank you very much for letting me participate in the care of your patient. Should you have any ques tions, give me a call back. Carolina Goldsmith MD cc: [phone] TT: 09/06/2016 11:48:27 Confirmation # [id number] Dictation # [id number] rn
--- NOTE | 2016-09-06 13:19 | HP ---
HISTORY OF PRESENT ILLNESS: The patient is a 56-year-old male who was brought to the Emergency Room after being found unresponsive. Apparently the patient had not been heard from in about 24-48 hours. It is unknown how long his down time has been. He was, however, brought to the Emergency Room, hannah mcarthur to be unresponsive, in respiratory distress. He was intubated and admitted to the intensive care unit. The patient is relatively new to me. I only saw the patient twice in the office, once in 2014 and a second time about 6 months ago. At that time, he had been complaining of hemetemesis. I denise zhu suggested hospitalization at which time he went to [facility] and I have not hea rd any followup from him or from [facility] since then. PAST MEDICAL HISTORY: He is known to have a past medical history for insulin-dependent diabetes jai itus, and a bicuspid aortic valve. MEDICATIONS: Lipitor 20 mg, NovoLog in insulin pump, Diovan 320 mg. ALLERGIES: He has no known medical allergies. SOCIAL HISTORY: Never smokes, rarely drinks, only socially. Drinks 3-4 cups of coffee a day. FAMILY HISTORY: His father at age 78 of COPD. His mother at 76 of lung carcinoma. He has 2 brothers, 1 from drugs and alcohol. 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 He is with a 32-year-old son, 12-year-old daughter, and a 23 -year-old adopted daughter. PHYSICAL EXAMINATION: GENERAL: When seen, the patient is intubated. He is sedated. LUNGS: Clear anteriorly. HEART: Tachycardic. ASSESSMENT AND PLAN: It appears the patient is in diabetic ketoacidosis. He is being treated on an insulin drip in the intensive care unit. LABORATORY STUDIES: Show his troponins to be 0.05. PT/INR is 1.32. His liver enzymes are elevated with an AST of 171, ALT 66. His CK is markedly elevated at 10,868. White blood cell count is 16.7, hemoglobin and hematocrit are 13.1 and 35.9, respectively. Sodium is 146, potassium 3.8, BUN is 45, creatinine 0.5. Chest x-ray shows no acute disease. CT of the head is negative. Renal ultrasound w as unremarkable. We are continuing to treat patient with IV fluids, insulin drip, and will be follow ing the patient closely. Zia Neil MD cc: [id number] TT: 09/06/2016 11:51:45 09/06/2016 12:18:19
[2016-09-06] MEDS: OLANZapine 5 mg Disintegrating Tab PO PRN (14:55)
--- NOTE | 2016-09-06 14:58 | CARD ---
APPROVED REPORT EXAM: Two-dimensional and M-mode echocardiogram with Doppler and color Doppler. INDICATION bicuspid aortic valve 2D DIMENSIONS Left Atrium (2D)3.9 (1.6-4.0cm)IVSd1.3 (0.7-1.1cm) LVDd3.7 (3.9-5.9cm)LVOT Diameter1.9 (1.8-2.4cm) PWd1.1 (0.7-1.1cm)LVDs2.2 (2.5-4.0cm) FS (%) 40.8 %LVEF (%)72.5 (>50%) Aortic Valve AoV Peak Izdnxyef596.0cm/sAoV VTI59.1cmAO Peak GR.36mmHg LVOT Peak Ftpkjmos277.0cm/sLVOT VTI27.60cmAO Mean GR.19mmHg PACO (VMAX)1.09hr2AMF (VTI)1.33cm2 Mitral Valve MV E Sxttwrmq056.0cm/sMV A Fvlpwvwn58.8cm/sE/A ratio1.2 TDI E/Lateral E'0.0E/Medial E'0.0 Tricuspid Valve TR Peak Oosmbgnk019wg/sRAP EWGLTOXK71mcSkIE Peak Gr.38mmHg WOZX53jcFe LEFT VENTRICLE The left ventricle is normal size. There is mild concentric left ventricular hypertrophy. The left ventricular function is normal. The left ventricular ejection fraction is within the normal range. There is normal LV segmental wall motion. Transmitral Doppler flow pattern is Grade I-abnormal relaxation pattern. RIGHT VENTRICLE The right ventricle is normal size. There is normal right ventricular wall thickness. The right ventricular systolic function is normal. ATRIA The left atrium size is normal. The right atrium size is normal. AORTIC VALVE The aortic valve is bicuspid. There is trace aortic regurgitation. There is moderate valvular aortic stenosis. MITRAL VALVE Mitral regurgitation is trace. TRICUSPID VALVE There is mild to moderate pulmonary hypertension. <Conclusion> The left ventricle is normal size. There is mild concentric left ventricular hypertrophy. The left ventricular function is normal. The left ventricular ejection fraction is within the normal range. There is normal LV segmental wall motion. The aortic valve is bicuspid. There is moderate valvular aortic stenosis. There is trace aortic regurgitation. There is mild to moderate pulmonary hypertension.
--- NOTE | 2016-09-06 19:13 | CON ---
DATE: 09/06/2016 SERVICE: Cardiology. REASON FOR CONSULTATION: Aortic stenosis, bicuspid aortic valve, admitted with DKA, cardiac evaluati on. BRIEF CLINICAL HISTORY: This is a 56-year-old male with history of diabetes more than 20 years ago w ho was admitted with DKA. is at the bedside. Denies any chest pain, shortness of breath, any p alpitation, who is recovering from the DKA. Initially, patient was comatose, unable to give any hist ory, but now has started talking a few words. is at bedside. Denies any chest pain, shortness of breath, any palpitation. PAST MEDICAL HISTORY: Significant for type 2 diabetes more than 20 years, history of bicuspid aortic valve, being followed by printed circuit board assembly repairer, last seen 1 year ago. CURRENT MEDICATIONS: The patient is taking insulin, NovoLog and Diovan. ALLERGIES: No known drug allergy. PAST SURGICAL HISTORY: Significant for left shoulder surgery 6 years ago, laser surgery in both eyes secondary to diabetes. SOCIAL HISTORY: Denies any history of smoking, rarely drinks, socially drinks. 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 He is with grownup children. FAMILY HISTORY: Significant for COPD, stroke, but no definite coronary artery disease. REVIEW OF SYSTEMS: As per HPI. PHYSICAL EXAMINATION: VITAL SIGNS: Temperature afebrile, heart rate , blood pressure 155/82. HEENT: PERRLA. Extraocular muscles intact. NECK: Supple. No carotid bruits. No thyromegaly. CHEST: Clear to auscultation. HEART: S1, S2 regular. ABDOMEN: Soft. EXTREMITIES: Clubbing and cyanosis negative. LABORATORY DATA: Blood workup as follows: WBC 5.8, hemoglobin 11.8, hematocrit 32.3, platelet count 220. Chemistry shows sodium 145, potassium , chloride 112, carbon dioxide 20, anion gap of 18, BUN 1, creatinine 1.0. Troponin remains negative. EKG shows sinus tachycardia. The patient had ec hocardiography done on 09/03/[address] Merritt, shows preserved LV function, normal size, nor mal valve thickness. Left ventricle function is normal. RVSP 36 mmHg. The aortic valve is not well visualized because patient was on vent, but apparently looks like moderate aortic stenosis with bicus pid aortic valve possibly by history. IMPRESSION: Bicuspid aortic valve, type 2 diabetes, status post diabetic ketoacidosis, hypertension. Brain MRI shows tiny restrictive perfusion of the left cerebellar hemisphere, right posterior parie simon occipital lobe suggesting recent infarct, possibly this slowness is secondary to infarct. RECOMMENDATION: Once the patient is stable, will repeat echo as soon as the patient is extubated to get a better quality of echo and assess the aortic valve, clinically as well as previous echo shows m ild to moderate aortic stenosis, bicuspid. Will follow with you. Thank you, Dr. Neil, for providing the opportunity in taking care of the patient. Clifton Ballard MD cc: [id number] TT: 09/06/2016 19:12:40 Confirmation # [id number] Dictation # [id number] damir
[2016-09-06] MEDS: Insulin Detemir 100 units/ml Vial (Levemir) SC SCH (21:25)
--- NOTE | 2016-09-06 22:10 | PN ---
DATE: 09/06/2016 ROOM: 128, room 4 in the CCU SUBJECTIVE: This is a 56-year-old male with recent uncontrolled type 1 insulin-dependent diabetes, p resenting here with a brief bout of unresponsiveness, altered mental status, and supervening diabetic ketoacidosis and is now being followed closely for metabolic management. He received intensive insu maite therapy with an insulin drip infusion and also vigorous IV hydration is given. His recent chemis tries, done today, showed a BUN of 18, sodium 145, potassium 3.8, chloride 112, CO2 17, glucose 269, and creatinine 1.0. His creatine kinase levels are declining and improving with the latest level of 1202. So at this time, we will also continue the same basal insulin, given as Levemir at 22 units subQ at b edtime daily, which will be modified tonight 24 units subQ at bedtime as ordered. We will continue t he Humalog coverage scale done a.c. and at bedtime with the low dose algorithm as ordered. We will o btain serial chemistries and supplement accordingly as needed. As his oral intake improves, and his glycemic levels rise with his mealtimes, then we will start him back on a more physiologic basal and bolus insulin drug combination as indicated. We will continue the IV hydration as ordered and also o btain serial chemistries and supplement accordingly as needed. We will follow. Rocío Rich MD cc: [id number] TT: 09/06/2016 22:09:53 Confirmation # [id number] Dictation # [id number] ln
[2016-09-07] MEDS: Piperacillin/Tazobact 3.375 gm 100 ML IVPB SCH ×5 (00:27→23:06)
[2016-09-07] MEDS: Sodium Chloride 0.9% 1,000 ML IV SCH (05:23)
[2016-09-07 07:17] LABS: ADD MANUAL DIFF? NO
[2016-09-07 07:24] LABS: BASO # 0.01 [, K/mm3] (0.0-2.0); BASO % 0.2 % (0.0-3.0); EOS # 0.1 (0.0-0.7); EOS % 1.8 % (1.5-5.0); GRAN # 3.85 (1.4-6.5); GRAN % 63.4 % (50.0-68.0); HEMATOCRIT 33.7 % (42.0-52.0); LYMPH # 1.6 (1.2-3.4); LYMPH % 26.2 % (22.0-35.0); MEAN CELL VOLUME 82.8 fL (80.0-105.0); MEAN CORPUSCULAR HEMOGLOBIN 30.2 pg (25.0-35.0); MEAN CORPUSCULAR HGB CONC 36.5 g/dl (31.0-37.0); MEAN PLATELET VOLUME 10.1 fl (7.0-11.0); MONO # 0.5 (0.1-0.6); MONO % 8.4 % (1.0-6.0); PLATELET COUNT 230 [, 10^3/uL] (120.0-450.0); RED CELL DISTRIBUTION WIDTH 11.9 % (11.5-14.5); WHITE BLOOD COUNT 6.1 [, 10^3/ul] (4.5-11.0)
[2016-09-07 07:50] LABS: ALB/GLOB RATIO 1.1 (1.1-1.8); ALKALINE PHOSPHATASE 61 U/L (38-133); ALT/SGPT 59 U/L (7-56); AST/SGOT 43 U/L (15-59); BILIRUBIN,TOTAL 0.6 mg/dL (0.2-1.3); BLOOD UREA NITROGEN 13 mg/dL (7-21); CALCIUM 7.9 mg/dL (8.4-10.5); CARBON DIOXIDE 25 mmol/L (21-33); CHLORIDE 111 mmol/L (98-107); CHOLESTEROL 104 mg/dL (130-200); GFR AFRICAN-AMERICAN > 60; GLUCOSE,RANDOM 189 mg/dL (70-110); MAGNESIUM 1.9 mg/dL (1.7-2.2); PHOSPHOROUS 2.5 mg/dL (2.5-4.5); POTASSIUM 3.1 mmol/L (3.6-5.0); SODIUM 143 mmol/L (132-148); TOTAL PROTEIN 4.8 g/dL (5.8-8.3)
[2016-09-07] MEDS: Insulin Lispro 1 UNITS/0.01 ML SC SCH ×5 (08:31→22:18)
--- NOTE | 2016-09-07 10:38 | PN ---
DATE: 09/06/2016 SUBJECTIVE: The patient is a 56-year-old male who was admitted to [facility] on 09/[address] being found unresponsive at home. His down time was approximately 24-48 hours. He was intubated in the Emergency Room and admitted to the intensive care unit where he was treated for sepsis, rhabd omyolysis, diabetic ketoacidosis. The patient responded well, albeit slowly. He was eventually extu bated. Post-extubation, the patient was somnolent, unresponsive. MRI of the head was ordered and he was found to have small infarcts, one in the left cerebellum, another in the right parietal occipita l area. This appeared to be a result of possible embolization. He is therefore scheduled to undergo an echocardiogram. EEG was also performed, the results of this is not yet available. When seen tod meghann, he is much more awake for the first time and the patient is able to respond to me. He answers, h e shakes hands. He remembers seeing me at the office about a year ago. PHYSICAL EXAMINATION: LUNGS: Clear anteriorly. HEART: Regular. VITAL SIGNS: Blood pressure is 155/82, heart rate 67, he is afebrile. LABORATORY DATA: White blood cell count is 5.8, hemoglobin is 11.9. BUN is 18, creatinine at 1.0, p otassium is 3.8. PLAN: The patient is to be transferred to [facility] where he will be followed closely. He will be gin physical therapy. He is swallowing well, so we will keep putting him on a diabetic diet. Zia Neil MD cc: [phone] TT: 09/07/2016 10:37:31 Confirmation # [id number] Dictation # [id number]
--- NOTE | 2016-09-07 11:21 | PN ---
DATE: 09/07/2016 The patient is lying on the bed, in no acute distress. Denies having any dizziness, but complains of a mild headache. PHYSICAL EXAMINATION: VITAL SIGNS: His blood pressure is 166/88, heart rate is per minute, breathing at a rate of 16 per minute, temperature is 97.8 degrees Fahrenheit. HEENT: Head normocephalic, atraumatic. NECK: Supple. There are no carotid bruits. LUNGS: Clear. CARDIOVASCULAR: S1, S2 audible. No murmurs. ABDOMEN: Soft, nontender. Bowel sounds present. NEUROLOGIC EXAMINATION: MENTAL STATUS: The patient is awake, alert, oriented to place in the hospital, the year is 2016, tue is August. He follows all simple commands. CRANIAL NERVES: Pupils are 4 mm bilaterally, reactive to light. Visual scott are full. Extraocula r movements are intact. There is no facial asymmetry. Palate is upgoing bilaterally and tongue is m idline. MOTOR EXAMINATION: Tone is normal. Power is 5/5 bilaterally in all extremities. Reflexes +2 and sy mmetrical. Plantars downgoing bilaterally. LABORATORY DATA: Reviewed, shows WBC of 6.1, hemoglobin 12.3, hematocrit 33.7 and platelets of 230. His sodium is 143, potassium 3.1, chloride 101, carbon dioxide 25, BUN of 13, creatinine 0.9, and gl ucose of 189. IMPRESSION: Altered mental status, possibly secondary to medication side effect. RECOMMENDATIONS: 1. The patient had an electroencephalogram done which showed moderate bihemispheric cerebral dysfunc tion. 2. After reviewing the EEG, I have discussed the findings with ICU yesterday and the Flagyl was stop ped. This is because it may also cause encephalopathy. Since that time today, the patient is more a wake, more alert and more responsive. 3. The patient to continue to have supportive care and other treatment. 4. Please continue other treatment. Thank you for the opportunity to participate in the care of this patient. Uriel Alfaro MD cc: [id number] TT: 09/07/2016 11:20:52 Confirmation # [id number] Dictation # [id number] mn
--- NOTE | 2016-09-07 11:27 | PN ---
DATE: 09/07/2016 REASON FOR CONSULTATION AND FOLLOWUP: Aortic stenosis, bicuspid aortic valve. DKA, cardiac evaluati on. BRIEF CLINICAL HISTORY: A 56-year-old male with past medical history significant for diabetes more t olivares 20 years was admitted with DKA. The patient has a longstanding history of bicuspid aortic valve, being followed by clinic receptionist. The patient initially admitted, was intubated, has a CVA also. Fi rst echo was a poor study, but showed the bicuspid aortic valve. The patient had repeat echocardiogr aphy done yesterday. PHYSICAL EXAMINATION: VITAL SIGNS: Temperature afebrile, heart rate 57, blood pressure 160/88. HEENT: PERRLA. Extraocular muscles intact. NECK: Supple. No carotid bruits. No thyromegaly. CHEST: Clear to auscultation. HEART: S1, S2 regular. ABDOMEN: Soft. EXTREMITIES: Clubbing and cyanosis negative. LABORATORY DATA: Blood workup as follows: WBC 6.1, hemoglobin 12.0, hematocrit 33.7, platelet count 230. Chemistry shows sodium 142, potassium 3.1, chloride 111, carbon dioxide 25, anion gap of 10, B UN 13, creatinine 0.7. Total protein 4.8, albumin 2.5, albumin/globulin ratio 1.1. Triglycerides 25 7, cholesterol 104, LDL 48, HDL 26. TSH 1.64. Hemoglobin A1c pending. IMPRESSION: Diabetes, hypertension, hyperlipidemia, history of diabetic ketoacidosis, hypokalemia, b icuspid aortic valve well known by the patient and the with moderate aortic stenosis. Repeat ec ho done yesterday that showed left ventricular hypertrophy, normal left ventricular function. No seg mental wall motion, aortic valve was bicuspid, moderate valvular aortic stenosis, trace aortic regurg itation, mild to moderate pulmonary hypertension, right ventricular systolic pressure of 48, peak gra dient across aortic valve is 36 mm, valve area of 1.3 consistent with moderate aortic stenosis. RECOMMENDATION: Continue prophylaxis for and dental workup. No further workup is needed at this time. Upon will discharge, the patient needs to be followed up with his clinic receptionist, consider a stress test in 3-6 weeks with the patient's symptoms of CVA are resolved. Since the patient's rec ent CVA and triglycerides are elevated and though LDL is low, so we will start low dose of Tricor. W ill follow with you. Thank you, Dr. Neil, for providing the opportunity in taking care of the patient. Clifton Ballard MD cc: [id number] TT: 09/07/2016 11:26:11 Confirmation # [id number] Dictation # [id number] an
[2016-09-07] MEDS: Potassium Chloride 20 mEq 100 ML IVPB SCH ×2 (11:30→16:28)
[2016-09-07] MEDS: OLANZapine 5 mg Disintegrating Tab PO PRN (19:24)
--- NOTE | 2016-09-07 19:53 | PN ---
DATE: 09/07/2016 LOCATION: Room 362. This is a 56-year-old male with recent uncontrolled type 1 insulin-dependent diabetes, presenting her e with a brief bout of unresponsiveness and persistent altered mental status, confusion and disorient ation with variable sensorium as noted thereof. His oral intake is also quite variable as per the [facility] staff. He received vigorous IV hydration with intensive insulin therapy in the ICU and also vi gorous IV hydration as noted. His latest chemistry showed a BUN of 13, sodium 143, potassium 3.1, ch loride 111, CO2 of 25, glucose 189 and creatinine 0.9. His hemoglobin A1c is 8.2%. The glucose valu es today have ranged from 172-177 mg/dL. It was 340 at bedtime last night. So at this time, will mo dify his basal and bolus insulin regimen and increase the basal insulin with Levemir to be given as 2 4 units subQ at bedtime daily to start tonight. Will also add a low dose Humalog to cover his mealti me insulin requirements with Humalog to be given as 4 units subQ t.i.d. before meals to start at dinn ertime today as ordered. As his oral intake improves, then will titrate his insulin dose regimen acc ordingly. Will obtain serial chemistries and supplement accordingly as needed. Will follow. Rocío Rich MD cc: [id number] TT: 09/07/2016 19:52:22 Confirmation # [id number] Dictation # [id number] brayden
--- NOTE | 2016-09-07 22:19 | US ---
PROCEDURE: Bilateral carotid artery duplex ultrasound HISTORY: Carotid stenosis CVA PHYSICIAN(S): Francisco Javier Barksdale MD. TECHNIQUE: Duplex sonography and color-flow Doppler were used to evaluate the carotid bifurcations and limited segments of the vertebral arteries bilaterally. FINDINGS: The exam is limited by tortuous vessels. There is mild smooth heterogeneous plaque noted at the carotid bifurcations bilaterally. The peak systolic velocity in the proximal right internal carotid artery is 98 cm/sec. This corresponds to a 20 to 39% proximal right ICA stenosis. Normal systolic velocities are noted in the proximal right external carotid artery. There is antegrade flow in the right vertebral artery. The peak systolic velocity in the proximal left internal carotid artery is 88 cm/sec. This corresponds to a 20 to 39% proximal left ICA stenosis. Normal systolic velocities are noted in the proximal left external carotid artery. There is antegrade flow in the left vertebral artery. IMPRESSION: 1. Bilateral 20-39% proximal ICA stenoses. 2. Antegrade flow in both vertebral arteries.
[2016-09-07] MEDS: Insulin Detemir 100 units/ml Vial (Levemir) SC SCH (22:25)
[2016-09-08] MEDS: Piperacillin/Tazobact 3.375 gm 100 ML IVPB SCH ×3 (05:55→17:24)
[2016-09-08 06:54] LABS: ADD MANUAL DIFF? NO
[2016-09-08 07:09] LABS: BASO # 0.01 [, K/mm3] (0.0-2.0); BASO % 0.2 % (0.0-3.0); EOS # 0.2 (0.0-0.7); EOS % 4.3 % (1.5-5.0); GRAN # 3.11 (1.4-6.5); GRAN % 57.8 % (50.0-68.0); LYMPH # 1.5 (1.2-3.4); LYMPH % 27.1 % (22.0-35.0); MEAN CELL VOLUME 82.9 fL (80.0-105.0); MEAN CORPUSCULAR HEMOGLOBIN 30.2 pg (25.0-35.0); MEAN CORPUSCULAR HGB CONC 36.5 g/dl (31.0-37.0); MEAN PLATELET VOLUME 9.8 fl (7.0-11.0); MONO # 0.6 (0.1-0.6); MONO % 10.6 % (1.0-6.0); PLATELET COUNT 219 [, 10^3/uL] (120.0-450.0); RED CELL DISTRIBUTION WIDTH 11.9 % (11.5-14.5); WHITE BLOOD COUNT 5.4 [, 10^3/ul] (4.5-11.0)
[2016-09-08] MEDS: Insulin Lispro 1 UNITS/0.01 ML SC SCH ×7 (08:11→21:22)
--- NOTE | 2016-09-08 08:32 | PN ---
DATE: 09/07/2016 Shortly, the patient is a 56-year-old male with not known previous psychiatric history. The patient was admitted to ICU for evaluation of altered mental status and inability to talk. The patient was i ntubated, extubated successfully. The patient has multiple medical issues and this telegraphic typewriter mechanic had phillip kitty patient had hypoactive delirium which is related to multiple medical issues including diabetic k etoacidosis. The patient had infection. Please see medical team notes for more detailed information . The patient initially was seen yesterday. Discussed with ICU attending. This telegraphic typewriter mechanic had impressi on that the patient was in catatonic stage, but attending in CCU did not feel comfortable to start be nzodiazepines because patient had 1 dose of Ativan after which he slept 7 hours straight. This write r implemented Zyprexa Zydis dissolvable and patient deemed to be tolerating that well, and no side ef fects were observed or reported. The patient was seen today on the medical floor more responsive but still very slow with responses, b ut more alert. Speech was more productive but still patient seems to have difficulty to express hims elf. This telegraphic typewriter mechanic had prolonged conversation with attending, ____ Rashaad, over the phone. The patient does not have history of mental illness and this telegraphic typewriter mechanic had discussed treatment options in d etail. VITAL SIGNS: This telegraphic typewriter mechanic reviewed vital signs. Vital signs seem to be stable. Temperature 98.8, pu lse is 57, blood pressure 166/87, respirations 20, oxygen saturation is 95. MEDICATIONS: Reviewed. Aspirin, Tricor, heparin, Levemir, Humalog, Zyprexa Zydis as needed (last ti me was given yesterday), Protonix, Zosyn as well as sodium chloride. LABORATORY DATA: Reviewed. Hemoglobin and hematocrit 12.3 and 33.7. Coagulation is reviewed. Bloo d gas reviewed. Chemistry reviewed. The patient had potassium 3.1 and chloride 111. The patient al so has ALT 59. Total creatine kinase is 535. Triglycerides and cholesterol are 257 and 04. URINALYSIS: Checked. TOXICOLOGY: Checked; negative for any substances. MICROBIOLOGY: Checked. REPORTS: Reviewed. The patient reported EEG which showed moderate bihemispheric cerebral dysfunctio n which could be correlated with delirium. The patient also was seen by neurologist as well as cardi ologist. Carotid artery ultrasound was done; there is no result back yet. Discussed with the [facility] staff. The patient does not have any behavioral disturbances, ambulates with a steady gait but slo w. No behavioral issues. MENTAL STATUS EXAMINATION: The patient is alert but has difficulty to express himself. Mood describ ed as okay. Affect was flat. Speech was underproductive, but much improvement to compare with yeste rday. The patient was not giving answers for psychotic symptoms. The patient does not appear to be psychotic and does not appear to be responding to internal stimuli. As well, the patient denied thou ghts of harming her himself or others. Insight and judgment are improving. Impulses are well contro lled. IMPRESSION: Multifactorial delirium with catatonia which is improving. Please see medical team note s for more detailed information in regards of the medical issues. The patient has diabetic ketoacido sis, hypertension, hyperlipidemia, bicuspid aortic valve, sepsis, encephalopathy, rhabdomyolysis, acu te kidney injury, electrolyte abnormalities, the patient is status post extubation, leukocytosis whic h is resolved. Please see medical team notes for more detailed information. PLAN: Will continue Zyprexa for now because it is dissolvable and patient has difficulty swallowing. At the same time, will consider to switch either on Risperdal, option to start small dose of benzod iazepines were discussed with Dr. Neil today. Will monitor closely and advise accordingly. Thank you very much for letting me participate in the care of your patient. Should you have any ques tions, give me a call back. Carolina Goldsmith MD cc: [phone] TT: 09/07/2016 15:50:52 Confirmation # [id number] Dictation # [id number] fallon
[2016-09-08 08:48] LABS: ALB/GLOB RATIO 1.1 (1.1-1.8); ALKALINE PHOSPHATASE 60 U/L (38-133); BLOOD UREA NITROGEN 12 mg/dL (7-21); CHLORIDE 110 mmol/L (98-107); GFR AFRICAN-AMERICAN > 60; MAGNESIUM 1.9 mg/dL (1.7-2.2); PHOSPHOROUS 3.2 mg/dL (2.5-4.5)
[2016-09-08 08:56] LABS: ALT/SGPT 64 U/L (7-56); AST/SGOT 51 U/L (15-59); BILIRUBIN,TOTAL 0.5 mg/dL (0.2-1.3); CARBON DIOXIDE 27 mmol/L (21-33); GLUCOSE,RANDOM 99 mg/dL (70-110); SODIUM 144 mmol/L (132-148); TOTAL PROTEIN 4.9 g/dL (5.8-8.3)
[2016-09-08 09:01] LABS: POTASSIUM 2.9 mmol/L (3.6-5.0)
--- NOTE | 2016-09-08 09:18 | PN ---
DATE: 09/07/2016 The patient was seen this Tuesday late morning in room 362, bed 2. He was sleeping during my visit, but his daughter was present and we spoke at great length reviewing his case from the beginning. Fabiana kirk is the first time I am meeting this fellow, a 56-year-old diabetic. He was seen and admitted by Dr Ann-Marie Neil over the weekend. I also had the chance to speak with the ER physician about his presentation. The patient is now more awake and answers appropriately, but his mental status is far from baseline. As far as future needs, whether or not physical therapy rehab, cognitive function yane ab will be necessary will depend on his progress over the next few days. We will continue acute care hospitalization until that determination is going to be made. Yosef Neil MD cc: [phone] TT: 09/08/2016 09:17:30 Confirmation # [id number] Dictation # [id number] mn
--- NOTE | 2016-09-08 10:02 | PN ---
DATE: 09/08/2016 SUBJECTIVE: The patient is sitting on the bed, in no acute distress. Denies having any headache or dizziness. He feels a lot better. PHYSICAL EXAMINATION: VITAL SIGNS: His blood pressure is 169/90, heart rate is 58 per minute, breathing at a rate of 16 pe r minute, temperature is 98.7 degrees Fahrenheit. HEENT: Normocephalic, atraumatic. NECK: Supple. There are no carotid bruits. LUNGS: Clear. CARDIOVASCULAR: S1, S2 audible. No murmurs. ABDOMEN: Soft, nontender. Bowel sounds present. NEUROLOGIC EXAMINATION: MENTAL STATUS: The patient is awake, alert, oriented to time, place and person. Speech is fluent. He has some hoarseness of voice. CRANIAL NERVES: Pupils are 4 mm bilaterally and reactive to light. Visual scott are full. Extraoc ular movements are intact. There is no facial asymmetry. Palate is upgoing bilaterally and tongue i s midline. MOTOR: Tone is normal. Power is 5/5 bilaterally in all extremities. Reflexes +2 and symmetrical. Plantars downgoing bilaterally. CEREBELLAR: Fuarrr-uz-oufh shows no dysmetria. LABORATORY DATA: Reviewed, shows WBC 5.4, hemoglobin 12.4, hematocrit 34.0 and platelets of 219. So dium is 144, potassium 2.9, chloride of 110, carbon dioxide content 27, BUN of 12, creatinine 0.9 and glucose of 99. IMPRESSION: Status post altered mental status, possible medication side effect. RECOMMENDATIONS: 1. The patient's mental status seems to be a lot better. The patient is at his baseline mental stat us. 2. The patient to continue to have supportive care and other treatment. 3. The patient's potassium needs to be supplemented. 4. Please continue supportive care and other treatment. Thank you for the opportunity to participate in the care of this patient. Uriel Alfaro MD cc: [phone] TT: 09/08/2016 10:01:34 Confirmation # [id number] Dictation # [id number] mn
--- NOTE | 2016-09-08 11:13 | PN ---
DATE: 09/08/2016 Shortly, the patient is a 56-year-old male, not known previous psychiatric history. The david torres was admitted initially to CCU for ketoacidosis, change in mental status. The patient was intub ated, extubated. The patient had multiple medical issues as well as change in mental status, which w as related to delirium stage. Psych consult was called for altered mental status and also patient wa s not able to express himself as well as rule out catatonia. For the past 3 days, patient was seen b y this principal technical writer. The patient's mental status is improving. Finally, today this principal technical writer was able to hav e a full conversation with the patient. The patient presented with psychomotor retardation. The pat heriberto reported that he is not feeling depressed, at times he feels anxious, denied hearing voices, den ied seeing things, denied history of being evaluated by psychiatry, denied history of suicidal attemp ts. The patient said that at present moment, he is concerned about his medical issues and at times h e feels anxious. Collaterals were obtained from the patient's , who is next to the patient. The patient wanted to be interviewed in front of his . expressed her highest concerns about th e patient's anxiety. This principal technical writer educated patient as well as about the treatment options and At ashtyn was offered 0.5 mg twice a day in order to help with anxiety as well as with catatonia. Risks, benefits, alternatives of the medication were discussed with the patient and . They were appreci ative. PAST PSYCHIATRIC HISTORY: Denied. Denied suicidal attempts. The patient denied using any drugs. VITAL SIGNS: This principal technical writer reviewed vital signs. Vital signs are stable. Temperature is 98.7, pulse 60, blood pressure 170/90, respirations 20, oxygen saturation is 95. MEDICATIONS: Reviewed. Aspirin, Tricor, heparin, Levemir, Humalog, also Zestril, Ativan, Protonix, Zosyn, and potassium chloride. Zyprexa Zydis will be discontinued. LABORATORY DATA: Labs reviewed. WBC is trending down. Today it is 5.4, hemoglobin 12.4, hematocrit 34. Chemistry reviewed. Potassium is low 2.9. Reports reviewed. Discussed with nursing staff. As per nursing staff, the patient is calm and coope rative, more expressive. MENTAL STATUS EXAMINATION: The patient appears to be alert. The patient is oriented in place. Did not know what is the name of this place. The patient knows where to check what is the date today, bu t patient said that he was not aware of what is the date today and he is missing some days and rememb ered that he was feeling confused. Mood described as "I'm concerned about my medical issues. Affect was flat. Thought process was coherent, but patient presented with some psychomotor retardation. T he patient denied thoughts of harming himself or others, denied intent or plan. The patient denied h earing voices, denied seeing things and does not present to be psychotic. IMPRESSION: Most likely the patient had a delirium stage, which was related to a lot of medical issu es including diabetes, diabetic ketoacidosis. Also patient with catatonia. The patient also has hyp ertension, hyperlipidemia, bicuspid aortic valve sepsis, encephalopathy, rhabdomyolysis, acute kidney injury, electrolyte abnormalities. The patient is status post extubation, leukocytosis, which is re solving. Please see medical team note for more detailed information. PLAN: We will hold Zyprexa for now. We will start Ativan 0.5 mg twice a day in order to help with t he catatonia as well as anxiety. Will recommend physical therapy evaluation, as well as continue cur rent management and supportive therapy. This principal technical writer discussed the option to start going for outpatie nt psychiatry as well as to start therapy as outpatient. The patient verbalized understanding and wa nts to think about that. Thank you very much for letting me participate in taking care of your patient. Will follow up and ad vise accordingly. Carolina Goldsmith MD cc: [phone] TT: 09/08/2016 11:13:31 Confirmation # [id number] Dictation # [id number] damir
[2016-09-08] MEDS: Potassium Chloride 20 mEq ER Tab PO SCH ×2 (11:16→17:24)
[2016-09-08] MEDS ORDERED: Potassium Chloride 20 mEq ER Tab PO ONE (13:26)
--- NOTE | 2016-09-08 14:17 | PN ---
DATE: 09/08/2016 The patient in room 362, bed 1. REASON FOR CONSULTATION AND FOLLOWUP: Aortic stenosis, bicuspid aortic valve, DKA. HISTORY OF PRESENT ILLNESS: A 56-year-old male with past medical history significant for diabetes mo re than 20 years, was admitted with DKA. The patient has longstanding history of bicuspid aortic ross ve, being followed by home health physical therapist. The patient admitted, was intubated and had CVA also. The patie nt had repeat echo on 09/06/2016, which showed a normal size left ventricle, mild concentric LV hypert rophy, LV function normal with ejection fraction 72%, aortic valve bicuspid, moderate valvular aortic stenosis, trace aortic regurgitation, mild to moderate pulmonary hypertension with RVSP 48 mmHg. Th e patient lying flat in bed without chest pain, shortness of breath or palpitation. PHYSICAL EXAMINATION: VITAL SIGNS: Blood pressure 170/90, respirations 20, pulse 92, temperature 98.7. HEAD: Normocephalic. EYES: Pupils normal. Conjunctivae normal. NOSE AND THROAT: Normal. NECK: JVP low. Carotid equal. THORAX: AP diameter normal. LUNGS: No significant rales. CARDIOVASCULAR: S1, S2, ejection systolic murmur grade III/, no rub. ABDOMEN: Soft, no tenderness, no organomegaly. EXTREMITIES: No clubbing, no cyanosis. LABORATORY DATA: WBC 5.4, hemoglobin 12.4, hematocrit 34.0, platelets 219. Sodium 144, potassium 2. 9, BUN 12, creatinine 0.9, phosphorus 3.2, magnesium 1.9, AST 51, ALT 64, total protein 4.9, albumin 2.6. IMPRESSION: Bicuspid aortic valve, aortic stenosis, mild to moderate pulmonary hypertension, diabete s mellitus, hypertension, hyperlipidemia, diabetic ketoacidosis. PLAN: To put aspirin 81 mg p.o. daily, heparin 5000 units subQ q. 8 hours. Potassium 20 mEq p.o. b .i.d. ordered by Dr. Zia Neil. Will give another potassium 40 p.o. today extra. The patient on Tricor 145 mg p.o. daily, lisinopril 10 mg p.o. daily changed today, but yesterday, patient recei anita lisinopril 5 mg, but today will get 10 mg. Blood pressure is elevated. Piperacillin/tazobactam 3.375 mg IV q. 6 hourly, insulin as ordered, and we will repeat lab SMA-7 in the morning. For bicusp id aortic valve, patient follows with her home health physical therapist. We will continue to follow with you. Clifton Sinha MD cc: [id number] TT: 09/08/2016 14:16:36 Confirmation # [id number] Dictation # [id number] en
--- NOTE | 2016-09-08 16:32 | PN ---
DATE: 09/08/2016 ROOM: 362 SUBJECTIVE: This is a 56-year-old male with recent uncontrolled type 1 insulin-dependent diabetes, p reviously on an insulin pump, who was found unresponsive and also in severe diabetic ketoacidosis and has since then improved clinically and metabolically as noted thereof. He was given intensive insul in therapy with an insulin drip infusion and vigorous IV hydration was given. His latest chemistry s howed a BUN of 12, sodium 144, potassium 2.9, chloride 110, CO2 27, glucose 99 and creatinine 0.9. H is glucose levels have ranged from 277-322 last night as ordered. At this time, we will continue the same basal and bolus insulin regimen to allow for dose equilibration and keep him on the Levemir giv en as 24 units subQ at bedtime daily with Humalog given as 4 units subQ t.i.d. before meals because o f the variability of his oral intake. We will titrate incrementally as indicated to optimize metabol ic control. We will follow. Rocío Rich MD cc: [id number] TT: 09/08/2016 16:31:15 Confirmation # [id number] Dictation # [id number] fallon
--- NOTE | 2016-09-08 18:31 | CP.PCM.PN ---
Subjective - Date & Time of Evaluation Date of Evaluation: 09/08/16 Time of Evaluation: 16:00 - Subjective Subjective: Patient seen at the request of his RN for worsening drowsiness after he was given ativan 0.5 mg po at about 11:30 am today. He was admitted to the icu for altered mental status secondary to diabetic ketoacidosis. He was transferred mahsa the floor after he improved Vital signs BP-129/77, T-99.2, P-70, R-18, 02sat on 2L/min 94%. PMH:DM,HTN,HLD Objective - Vital Signs/Intake and Output Vital Signs (last 24 hours): Temp Pulse Resp BP Pulse Ox 98.7 F 85 20 170/90 H 95 09/08/16 07:53 09/08/16 14:00 09/08/16 07:53 09/08/16 09:56 09/08/16 07:53 Intake and Output: 09/08/16 09/08/16 06:59 18:59 Intake Total 660 480 Output Total 500 Balance 160 480 - Medications Medications: Current Medications Aspirin (Ecotrin) 81 mg PO DAILY [facility] Last Admin: 09/08/16 09:56 Dose: 81 mg Fenofibrate (Tricor) 145 mg PO DAILY [facility] Last Admin: 09/08/16 09:56 Dose: 145 mg Heparin Sodium (Porcine) (Heparin) 5,000 units SC Q8 [facility] PRN Reason: Protocol Last Admin: 09/08/16 13:35 Dose: 5,000 units Piperacillin Sod/Tazobactam Sod (Zosyn 3.375 In Ns 100ml) 100 mls @ 200 mls/hr IVPB Q6 [facility] PRN Reason: Protocol Last Admin: 09/08/16 11:37 Dose: 200 mls/hr Insulin Detemir (Levemir) 24 unit SC HS [facility] Last Admin: 09/07/16 22:25 Dose: 24 unit Insulin Human Lispro (Humalog) 0 units SC ACHS [facility] PRN Reason: Protocol Last Admin: 09/08/16 11:25 Dose: Not Given Insulin Human Lispro (Humalog) 4 units SC AC [facility] Last Admin: 09/08/16 11:31 Dose: 4 units Lisinopril (Zestril) 10 mg PO DAILY [facility] Last Admin: 09/08/16 09:56 Dose: 10 mg Pantoprazole Sodium (Protonix Inj) 40 mg IVP DAILY [facility] Last Admin: 09/08/16 09:56 Dose: 40 mg Potassium Chloride (K-Dur 20 Meq Er Tab) 20 meq PO BID [facility] Last Admin: 09/08/16 11:16 Dose: 20 meq - Labs Labs: 09/08/16 06:15 09/08/16 08:00 PT 14.3 Seconds (9.9-11.8) H 09/03/16 05:30 INR 1.32 (0.93-1.08) H 09/03/16 05:30 APTT 29.5 Seconds (23.7-30.8) 09/02/16 16:22 - Constitutional Appears: No Acute Distress, Other (Pt is arousable,does not talk,follows commands) - Head Exam Head Exam: ATRAUMATIC, NORMAL INSPECTION, NORMOCEPHALIC - Eye Exam Eye Exam: PERRL - ENT Exam ENT Exam: Mucous Membranes Moist - Neck Exam Neck Exam: Normal Inspection - Respiratory Exam Respiratory Exam: Clear to Ausculation Bilateral - Cardiovascular Exam Cardiovascular Exam: REGULAR RHYTHM - GI/Abdominal Exam GI & Abdominal Exam: Soft, Normal Bowel Sounds - Neurological Exam Neurological Exam: Altered (drowsy ,but easily arousable,follows commands,moves all his limbs.) - Skin Skin Exam: Dry, Normal Color, Warm Assessment and Plan - Assessment and Plan (Free Text) Assessment: Drowsiness secondary to Ativan. Plan: Pt is to be observed closely. ABG was ordered to R/O CO2 retention.
[2016-09-08 18:38] LABS: ARTERIAL BLOOD GAS HCO3 25.1 mmol/L (21-28); ARTERIAL BLOOD GAS O2 CAPACITY 16.9 mL/dl (16-24); ARTERIAL BLOOD GAS O2 CONTENT 16.4 ML/dl (15-23); ARTERIAL BLOOD GAS PH 7.49 (7.35-7.45); ARTERIAL BLOOD HGB O2 SAT 94.4 % (95.0-98.0); CARBOXYHEMOGLOBIN 1.9 % (0.5-1.5); HHB 2.6 % (0-5); METHEMOGLOBIN 1.1 % (0.0-3.0)
--- NOTE | 2016-09-08 19:38 | PN ---
DATE: 09/08/2016 Room 362, bed 1 of the [facility]. The patient is a 56-year-old male who was admitted to the intensive care unit 6 days ago after being found unresponsive at home, with a down time of approximately 24-48 hours. He was intubated. He was treated for sepsis, DKA, rhabdomyolysis, and responded well. He was eventually extubated. He was s omnolent and unresponsive post- extubation. MRI of the head was ordered and found to have 2 small in farcts; 1 in the left cerebellum and 1 in the right parietooccipital area. The patient continued to do well, slowly becoming more responsive and answering questions, slowly becoming more verbal. EARLIER TODAY HE HAD A SENSITIVE REACTION TO ATIVAN. HE BECAME VERY SOMNOLENT, WAS DIFFICULT TO AROU SE. However, the Ativan had been discontinued, and with time, the patient once again became awake, a lert, and oriented. When seen today, his at bedside. The patient recognized me. He reached over with his right olivares d to shake my hand. He answers questions appropriately, although his sentences were short. His diabetes is being treated with Levemir and Humalog. He is followed closely by Dr. Rich. Dr. Figueroa , the psychiatrist, has started the patient on Zyprexa. He is to be transferred to [facility] for further rehabilitation. LUNGS: Clear. HEART: Regular. ABDOMEN: Soft and nontender. This morning's laboratories showed that his potassium was low at 2.9. This was supplemented orally. BUN and creatinine are 12 and 0.9 respectively. White blood cell count is normal at 5.4, hemoglobin is 12.4, hematocrit is 34.0. He is afebrile. Stools were tested and are negative for C. difficile. So at this point, we are discontinuing Ativan, or any further use of Ativan, and the patient's labora tories will be checked again in the morning, and when [facility] Zia Neil MD cc: [phone] TT: 09/08/2016 19:37:24 Confirmation # [id number] Dictation # [id number] jn
[2016-09-08] MEDS: Insulin Detemir 100 units/ml Vial (Levemir) SC SCH (22:02)
[2016-09-09] MEDS: Piperacillin/Tazobact 3.375 gm 100 ML IVPB SCH ×4 (00:18→18:09)
[2016-09-09 07:02] LABS: ADD MANUAL DIFF? NO
--- NOTE | 2016-09-09 07:04 | CP.PCM.PN ---
Subjective - Date & Time of Evaluation Date of Evaluation: 09/09/16 Time of Evaluation: 06:53 - Subjective Subjective: S:Nurse calls and tells that patient did not pass urine since yesterday 8:30 PM , she did a bladder scan which shows 702 cc of urine collection in bladder. Patient was seen at bedside. Has no complaints. Medical record was reviewed. O: Last Vital Signs 3 Temp 99.2 F 09/08/16 16:00 Pulse 66 09/09/16 04:18 Resp 18 09/08/16 16:00 BP 129/77 09/08/16 16:00 Pulse Ox 94 L 09/08/16 16:00 Awake, alert, not in distres. ABD:Suprapubic fullness ++,minimal tenderness. A/P: Urinary retention. Indwelling Bacon catheter. Objective - Vital Signs/Intake and Output Vital Signs (last 24 hours): Temp Pulse Resp BP Pulse Ox 99.2 F 66 18 129/77 94 L 09/08/16 16:00 09/09/16 04:18 09/08/16 16:00 09/08/16 16:00 09/08/16 16:00 Intake and Output: 09/08/16 09/09/16 18:59 06:59 Intake Total 480 660 Balance 480 660 - Medications Medications: Current Medications Aspirin (Ecotrin) 81 mg PO DAILY [facility] Last Admin: 09/08/16 09:56 Dose: 81 mg Fenofibrate (Tricor) 145 mg PO DAILY [facility] Last Admin: 09/08/16 09:56 Dose: 145 mg Heparin Sodium (Porcine) (Heparin) 5,000 units SC Q8 [facility] PRN Reason: Protocol Last Admin: 09/09/16 05:33 Dose: 5,000 units Piperacillin Sod/Tazobactam Sod (Zosyn 3.375 In Ns 100ml) 100 mls @ 200 mls/hr IVPB Q6 [facility] PRN Reason: Protocol Last Admin: 09/09/16 05:34 Dose: 200 mls/hr Insulin Detemir (Levemir) 24 unit SC HS [facility] Last Admin: 09/08/16 22:02 Dose: 24 unit Insulin Human Lispro (Humalog) 0 units SC ACHS [facility] PRN Reason: Protocol Last Admin: 09/08/16 21:22 Dose: Not Given Insulin Human Lispro (Humalog) 4 units SC AC [facility] Last Admin: 09/08/16 17:22 Dose: 4 units Lisinopril (Zestril) 10 mg PO DAILY [facility] Last Admin: 09/08/16 09:56 Dose: 10 mg Pantoprazole Sodium (Protonix Inj) 40 mg IVP DAILY [facility] Last Admin: 09/08/16 09:56 Dose: 40 mg Potassium Chloride (K-Dur 20 Meq Er Tab) 20 meq PO BID [facility] Last Admin: 09/08/16 17:24 Dose: 20 meq - Labs Labs: 09/08/16 06:15 09/08/16 08:00 PT 14.3 Seconds (9.9-11.8) H 09/03/16 05:30 INR 1.32 (0.93-1.08) H 09/03/16 05:30 APTT 29.5 Seconds (23.7-30.8) 09/02/16 16:22
[2016-09-09 07:14] LABS: BASO # 0.01 [, K/mm3] (0.0-2.0); BASO % 0.2 % (0.0-3.0); EOS # 0.2 (0.0-0.7); GRAN # 2.57 (1.4-6.5); GRAN % 48.2 % (50.0-68.0); HEMATOCRIT 34.3 % (42.0-52.0); LYMPH # 1.9 (1.2-3.4); LYMPH % 35.8 % (22.0-35.0); MEAN CELL VOLUME 82.9 fL (80.0-105.0); MEAN CORPUSCULAR HEMOGLOBIN 30.2 pg (25.0-35.0); MEAN CORPUSCULAR HGB CONC 36.4 g/dl (31.0-37.0); MEAN PLATELET VOLUME 9.9 fl (7.0-11.0); MONO # 0.7 (0.1-0.6); MONO % 12.8 % (1.0-6.0); PLATELET COUNT 245 [, 10^3/uL] (120.0-450.0); WHITE BLOOD COUNT 5.3 [, 10^3/ul] (4.5-11.0)
[2016-09-09] MEDS ORDERED: Dextrose 50% SYRINGE Inj (50 ml) ONE (07:22)
[2016-09-09 07:32] LABS: ALB/GLOB RATIO 1.1 (1.1-1.8); ALKALINE PHOSPHATASE 58 U/L (38-133); ALT/SGPT 75 U/L (7-56); AST/SGOT 69 U/L (15-59); BILIRUBIN,TOTAL 0.5 mg/dL (0.2-1.3); BLOOD UREA NITROGEN 11 mg/dL (7-21); CALCIUM 7.9 mg/dL (8.4-10.5); CARBON DIOXIDE 27 mmol/L (21-33); CHLORIDE 108 mmol/L (98-107); GFR AFRICAN-AMERICAN > 60; MAGNESIUM 1.8 mg/dL (1.7-2.2); PHOSPHOROUS 3.7 mg/dL (2.5-4.5); SODIUM 144 mmol/L (132-148)
[2016-09-09 07:57] LABS: POTASSIUM 2.8 mmol/L (3.6-5.0)
[2016-09-09 07:58] LABS: GLUCOSE,RANDOM 39 mg/dL (70-110)
--- NOTE | 2016-09-09 08:03 | CP.PCM.PN ---
Subjective - Date & Time of Evaluation Date of Evaluation: 09/09/16 Time of Evaluation: 07:45 - Subjective Subjective: Pt has urinary retention.has order for mares catheter. His RN was unable to insert mares. # 16 Mares cath inserted by me,straw colored urine obtained. Objective - Vital Signs/Intake and Output Vital Signs (last 24 hours): Temp Pulse Resp BP Pulse Ox 99.2 F 66 18 129/77 94 L 09/08/16 16:00 09/09/16 04:18 09/08/16 16:00 09/08/16 16:00 09/08/16 16:00 Intake and Output: 09/09/16 09/09/16 06:59 18:59 Intake Total 660 Balance 660 - Medications Medications: Current Medications Aspirin (Ecotrin) 81 mg PO DAILY [facility] Last Admin: 09/08/16 09:56 Dose: 81 mg Atorvastatin Calcium (Lipitor) 10 mg PO DIN [facility] Fenofibrate (Tricor) 145 mg PO DAILY [facility] Last Admin: 09/08/16 09:56 Dose: 145 mg Heparin Sodium (Porcine) (Heparin) 5,000 units SC Q8 [facility] PRN Reason: Protocol Last Admin: 09/09/16 05:33 Dose: 5,000 units Piperacillin Sod/Tazobactam Sod (Zosyn 3.375 In Ns 100ml) 100 mls @ 200 mls/hr IVPB Q6 [facility] PRN Reason: Protocol Last Admin: 09/09/16 05:34 Dose: 200 mls/hr Insulin Detemir (Levemir) 24 unit SC HS [facility] Last Admin: 09/08/16 22:02 Dose: 24 unit Insulin Human Lispro (Humalog) 0 units SC ACHS [facility] PRN Reason: Protocol Last Admin: 09/08/16 21:22 Dose: Not Given Insulin Human Lispro (Humalog) 4 units SC AC [facility] Last Admin: 09/08/16 17:22 Dose: 4 units Lisinopril (Zestril) 10 mg PO DAILY [facility] Last Admin: 09/08/16 09:56 Dose: 10 mg Pantoprazole Sodium (Protonix Inj) 40 mg IVP DAILY [facility] Last Admin: 09/08/16 09:56 Dose: 40 mg Potassium Chloride (K-Dur 20 Meq Er Tab) 20 meq PO BID [facility] Last Admin: 03/22/17 17:24 Dose: 20 meq - Labs Labs: 09/09/16 06:50 09/08/16 08:00 PT 14.3 Seconds (9.9-11.8) H 09/03/16 05:30 INR 1.32 (0.93-1.08) H 09/03/16 05:30 APTT 29.5 Seconds (23.7-30.8) 09/02/16 16:22
[2016-09-09] MEDS ORDERED: Potassium Chloride 20 mEq ER Tab PO ONE (08:16)
[2016-09-09] MEDS: Insulin Lispro 1 UNITS/0.01 ML SC SCH ×7 (08:27→21:43)
[2016-09-09] MEDS: Dextrose 50% SYRINGE Inj (50 ml) IVP ONE ×2 (08:28→08:41)
[2016-09-09] MEDS ORDERED: Potassium Chloride 20 mEq/15 ml LIQ UD PO SCH (10:00)
--- NOTE | 2016-09-09 10:06 | PN ---
DATE: 09/09/2016 SUBJECTIVE: The patient is lying on the bed, in no acute distress. Yesterday apparently the patient was noted to be very sleepy and drowsy and had decreased responsiveness. Even this morning patient is slow to respond. He does not feel better. The patient also had a Bacon catheter put in yesterday and about 700 mL of urine was collected. PHYSICAL EXAMINATION: VITAL SIGNS: His blood pressure is 138/80, heart rate is 61 per minute, breathing at a rate of 16 pe r minute, temperature is 98.9 degrees Fahrenheit. HEENT: Head is normocephalic, atraumatic. NECK: Supple. There are no carotid bruits. LUNGS: Clear. CARDIOVASCULAR: S1, S2 audible. No murmurs. ABDOMEN: Soft, nontender, bowel sounds are present. NEUROLOGIC EXAMINATION: MENTAL STATUS: The patient is awake, alert, oriented to year, person, place; he is just slow to resp ond to questions. He follows all simple commands. CRANIAL NERVES: Pupils are 4 mm, bilaterally reactive to light. Visual scott are full. Extraocula r movements are intact. There is no facial asymmetry. Palate is upgoing bilaterally and tongue is m idline. MOTOR: Tone is normal. Power is 5/5 bilaterally in all extremities. REFLEXES: Plantars downgoing bilaterally. LABORATORY DATA: Reviewed. Carotid Doppler: No significant stenosis. He had an echocardiogram whi ch shows ventricle normal in size. There is no thrombus noted. IMPRESSION: 1. Altered mental status. 2. Small restricted diffusion in the left cerebellar and right posterior occipital lobe suggestive o f recent infarct. 3. Urinary retention. 4. Hypokalemia. RECOMMENDATIONS: 1. Since the patient has this change in mental status and the patient being lethargic on and off, I will repeat an electroencephalogram as well as a repeat MRI of the brain with and without contrast to look for any enhancing lesion in the brain. 2. Please continue supportive care and other treatment. Thank you for the opportunity to participate in the care of this patient. Uriel Alfaro MD cc: [id number] TT: 09/09/2016 10:05:41 Confirmation # [id number] Dictation # [id number] mn
[2016-09-09] MEDS: Potassium Chloride 20 mEq ER Tab PO SCH ×2 (10:09→18:05)
[2016-09-09] MEDS ORDERED: Gadodiamide 287 MG/ML VIAL (15ML) IV ONE (10:59)
--- NOTE | 2016-09-09 13:23 | MRI ---
PROCEDURE: MRI BRAIN WITH AND WITHOUT CONTRAST HISTORY: altered mental status. COMPARISON: Comparison is made to the previous study dated 09/04/2016 TECHNIQUE: Multiplanar, multisequence MR images of the brain were obtained with and without intravenous contrast enhancement. 15 cc of IV contrast was injected. FINDINGS: HEMORRHAGE: None DWI: Re- demonstration of small foci of diffusion restriction at the left cerebellum and right posterior parietal occipital lobe suggestive of subacute lacunar infarcts. No evidence of new foci of diffusion restriction in the brain. BRAIN PARENCHYMA: No mass,mass effect or edema. No atrophy or chronic microvascular ischemic changes. ENHANCEMENT: No abnormal intracranial enhancement. VENTRICLES: Unremarkable. No hydrocephalus. CRANIUM: Unremarkable. ORBITS: Grossly unremarkable. PARANASAL SINUSES/MASTOIDS: Clear VASCULAR SYSTEM: Skull base flow voids intact. OTHER FINDINGS: None . IMPRESSION: Re- demonstration of small foci of diffusion restriction at the left cerebellum and right posterior parietal occipital lobe suggestive of subacute lacunar infarcts. No evidence of acute pathology otherwise in the brain. No evidence of enhancing mass lesion mass effect or midline shift.
[2016-09-09] MEDS: Potassium Chloride 20 mEq 100 ML IVPB SCH ×2 (15:14→18:04)
--- NOTE | 2016-09-09 16:04 | PN ---
DATE: 09/09/2016 ROOM: 362 This is a 56-year-old male with recent uncontrolled type 1 insulin-dependent diabetes, now with extre mes of glycemic fluctuations, presenting here initially with hyperglycemic accelerations and concomit ant diabetic ketoacidosis and received vigorous IV hydration and intensive insulin therapy with an in sulin drip infusion as given. However, overnight, his glucose values dropped with a glucose level of 39 mg/dL and a repeat level of 110 mg/dL. His initial chemistries showed a BUN of 11, sodium 144, p otassium 2.8, chloride 108, CO2 27, glucose 39 and a creatinine of 0.8. His glucose levels otherwise over the last 48 hours were near optimal actually, ranging from 145-156 and 243 mg/dL. Because of the variability of his oral intake with almost very nil and suboptimal portions, will lowe r for now his basal insulin to be given as Levemir at 14 units subQ at bedtime daily to start tonight . We will titrate incrementally as indicated to optimize metabolic control. Will obtain serial chem istries and supplement accordingly as needed. Will also continue the low-dose correction scale with Humalog insulin as given and continue the Humalog given as 4 units subQ t.i.d. before meals as ordere d. Will titrate incrementally as indicated to optimize metabolic control. Will follow and advise marcella hobbs. Rocío Rich MD cc: [id number] TT: 09/09/2016 16:04:20 Confirmation # [id number] Dictation # [id number] fallon
--- NOTE | 2016-09-09 17:19 | PN ---
DATE: 09/09/2016 The patient was followed up today. This mortgage loan underwriter tried to implement Ativan yesterday for catatonia. T his mortgage loan underwriter received a phone call from the hospital, from the house physician, who reports that the david torres was deeply sedated and drowsy and patient did not tolerate 0.5 mg of Ativan well. This mortgage loan underwriter suggested to discontinue that medication and this mortgage loan underwriter is following the patient up today. From the medical standpoint, the patient is not doing that well. The patient had urinary retention and a cat heter was placed. VITAL SIGNS: Reviewed. Blood pressure is elevated at 154/88. MEDICATIONS: Reviewed. Aspirin, Lipitor, Tricor, heparin, Levemir, Humalog, Zestril, Protonix, Zosy n, K-Dur and potassium chloride. The patient's glucose level was 31 today, potassium is low 2.8. MENTAL STATUS EXAMINATION: The patient presented to be drowsy, somewhat psychomotor retarded. Inter mittent eye contact. Speech was underproductive. Mood described as okay. Affect was flat. Thought process was coherent and goal directed. Thought content: The patient denied visual, auditory, or t actile hallucinations. Denied paranoid ideations. The patient denied thoughts of harming himself or others, denied intent or plan. The patient does not present to be a psychotic. Insight and judgmen t are improving. Impulses are well controlled. IMPRESSION: From this mortgage loan underwriter's perspective, patient's mental status is improving. The patient had h ypoactive, hyperactive multifactorial delirium which is improving. At the same time, the patient has multiple medical issues. The patient initially was in ICU, was intubated and extubated for diabetic ketoacidosis. Please see medical team notes for more detailed information. PLAN: Mental status is improving and this correlated with the patient's medical issues. This mortgage loan underwriter implemented Zyprexa initially when patient was confused, Zyprexa was discontinued. This mortgage loan underwriter trie d to give Ativan. The patient did not tolerate that well. The patient has a lot of medical issues a nd I truly believe after medical issues resolve, the patient will start feeling better. At present m oment the patient is not psychotic. Did not express any thoughts of killing himself. This mortgage loan underwriter wi ll sign off. Should you have any questions, give me a call back. The case was discussed with patien t's who is next to the bedside. Carolina Goldsmith MD cc: [phone] TT: 09/09/2016 17:18:27 Confirmation # [id number] Dictation # [id number] jn
--- NOTE | 2016-09-09 20:20 | PN ---
DATE: 09/09/2016 The patient in room 362, bed 1. REASON FOR CONSULTATION: Followup aortic stenosis, bicuspid aortic valve, DKA. HISTORY OF PRESENT ILLNESS: A 56-year-old male with past medical history significant for diabetes mo re than 20 years, was admitted with DKA. The patient has long-standing history of bicuspid aortic va lve, being followed by ticket maker. The patient, on admission was intubated; had CVA as well. Repe at echo on 09/06/2016 showed normal size LV, mild concentric LV hypertrophy, LV function normal with ejection fraction 72%. Bicuspid aortic valve with moderate valvular aortic stenosis, trace aortic re gurg, lclp-xt-oaisfwfw pulmonary hypertension with RVSP 48 mmHg. The patient denies any chest pain, shortness of breath, or palpitation. The patient is lying flat in bed. The patient on examination: VITAL SIGNS: Blood pressure 138/80, respirations 18, pulse 61, temperature 98.9. HEAD: Normocephalic. EYES: Pupils normal, conjunctivae slightly pale. NECK: JVP low. Carotid equal. THORAX: AP diameter normal. LUNGS: No significant rales. CARDIOVASCULAR: S1, S2, ejection systolic murmur grade III/. No rub. ABDOMEN: Soft, nontender, no organomegaly. EXTREMITIES: No clubbing, no cyanosis. LABORATORIES: WBC 5.3, hemoglobin 12.5, hematocrit 34.3, platelet 245. Sodium 144, potassium 2.8, B UN 11, creatinine 0.8. Random sugar 110. Calcium 7.9, phosphorus 3.7, magnesium 1.8, total protein 5.0, albumin 2.6. DIAGNOSES: Bicuspid aortic valve, moderate aortic valve stenosis, greh-ax-xvbwugzk pulmonary hyperte nsion, diabetes mellitus, hypertension, hyperlipidemia, diabetic ketoacidosis, hypokalemia. PLAN: The patient received some potassium 20 mEq p.o. once today. The patient also getting potassiu m 20 mEq p.o. b.i.d., Lipitor 10 mg p.o. daily, aspirin 81 mg daily, heparin 5000 units subQ q. 8 corbin rs. The patient also ordered IV potassium today, lisinopril 10 mg p.o. daily, piperacillin/tazobacta m IV q. 6 hourly. The patient will have repeat labs in the morning. Extra potassium has been already given. So, will follow labs in the morning. In the meantime, continue present therapy. Will follow with edilma smith. Clifton Sinha MD cc: [id number] TT: 09/09/2016 20:19:39 Confirmation # [id number] Dictation # [id number] nate
[2016-09-09] MEDS: Insulin Detemir 100 units/ml Vial (Levemir) SC SCH (21:44)
[2016-09-10] MEDS: Piperacillin/Tazobact 3.375 gm 100 ML IVPB SCH ×4 (00:40→17:06)
[2016-09-10 06:56] LABS: ADD MANUAL DIFF? NO
[2016-09-10 07:12] LABS: BASO # 0.01 [, K/mm3] (0.0-2.0); BASO % 0.2 % (0.0-3.0); EOS # 0.2 (0.0-0.7); EOS % 2.9 % (1.5-5.0); GRAN # 3.99 (1.4-6.5); GRAN % 63.6 % (50.0-68.0); LYMPH # 1.5 (1.2-3.4); LYMPH % 23.9 % (22.0-35.0); MEAN CELL VOLUME 83.3 fL (80.0-105.0); MEAN CORPUSCULAR HEMOGLOBIN 30.6 pg (25.0-35.0); MEAN CORPUSCULAR HGB CONC 36.7 g/dl (31.0-37.0); MEAN PLATELET VOLUME 9.7 fl (7.0-11.0); MONO # 0.6 (0.1-0.6); MONO % 9.4 % (1.0-6.0); PLATELET COUNT 289 [, 10^3/uL] (120.0-450.0); RED CELL DISTRIBUTION WIDTH 11.9 % (11.5-14.5); WHITE BLOOD COUNT 6.3 [, 10^3/ul] (4.5-11.0)
[2016-09-10] MEDS: Insulin Lispro 1 UNITS/0.01 ML SC SCH ×7 (08:04→21:50)
[2016-09-10] MEDS ORDERED: Lidocaine 1% Inj (20ml) IJ ONE (09:15)
[2016-09-10 09:36] LABS: ALKALINE PHOSPHATASE 74 U/L (38-133); ALT/SGPT 117 U/L (7-56); AST/SGOT 116 U/L (15-59); BILIRUBIN,TOTAL 0.5 mg/dL (0.2-1.3); BLOOD UREA NITROGEN 11 mg/dL (7-21); CALCIUM 8.5 mg/dL (8.4-10.5); CARBON DIOXIDE 23 mmol/L (21-33); CHLORIDE 106 mmol/L (98-107); GFR AFRICAN-AMERICAN > 60; GLUCOSE,RANDOM 178 mg/dL (70-110); SODIUM 137 mmol/L (132-148); TOTAL PROTEIN 5.2 g/dL (5.8-8.3)
[2016-09-10 09:54] LABS: FLUID TYPE SPINAL FLUID
--- NOTE | 2016-09-10 10:46 | PN ---
DATE: 09/10/2016 The patient is lying on the bed, in no acute distress. Complains of mild headache. He knows he is in the hospital. He knows the year, but slow to respond to questions. PHYSICAL EXAMINATION: VITAL SIGNS: His blood pressure is 143/80, heart rate is 71 per minute, breathing at a rate of 16 per minute, temperature is 98.5 degrees Fahrenheit. HEENT: Head is normocephalic, atraumatic. NECK: Supple. There are no carotid bruits. LUNGS: Clear. CARDIOVASCULAR: S1, S2 audible. No murmurs. ABDOMEN: Soft, nontender, bowel sounds are present. NEUROLOGIC EXAMINATION: MENTAL STATUS: The patient is awake, alert, oriented to place, year. He knows the year. He knows he is in the hospital. He is slow to respond to questions. He follows all simple commands. CRANIAL NERVES: Pupils are 3 mm bilaterally, reactive to light. Visual scott are full. Extraocular movements are intact. There is no facial asymmetry. Palate is upgoing bilaterally and tongue is midline. MOTOR: Tone is normal. Power is 5/5 bilaterally in all extremities. Reflexes +2 and symmetrical. Plantars downgoing bilaterally. No gross dysmetria is seen. LABORATORIES: Reviewed. MRI of the brain: Redemonstration of small foci, diffusion restriction of the left cerebellum and right posterior parietooccipital lobe suggestive of subacute lacunar infarcts. He also had an electroencephalogram, which shows mild bihemispheric cerebral dysfunction. IMPRESSION: Altered mental status. The etiology of his altered mental status is uncertain. Rule out any meningeal irritation/meningitis versus medication side effect versus questionable subclinical seizures with postictal states. RECOMMENDATIONS: 1. The patient to have a lumbar puncture done. 2. I have spoken with his and obtained the consent over the phone and we will perform the lumbar puncture later today. 3. If patient's cerebrospinal fluid does not show any acute pathology, then we will empirically consider putting him on antiepileptic medication, unless his mental status improves spontaneously. The other differential is possible hypoxic injury to the brain. 4. Please continue supportive care and other treatment. Thank you for the opportunity to participate in the care of this patient. Musaid A Alfaro MD cc: [id number] TT: 09/10/2016 10:46:05 Confirmation # [id number] Dictation # [id number] en [email or web address]
[2016-09-10] MEDS: Potassium Chloride 20 mEq ER Tab PO SCH ×2 (10:52→17:04)
--- NOTE | 2016-09-10 10:55 | PROCN ---
DATE: 09/10/2016 PROCEDURE: Lumbar puncture performed by Uriel Alfaro. DESCRIPTION OF PROCEDURE: After obtaining informed consent from his and taking all aseptic prec autions, a 20 gauge spinal needle was introduced between the L2-3 interspace. Opening pressure was n ormal. Clear and colorless CSF was obtained. About 8-9 mL of CSF was collected and sent for laborat ory studies. The patient tolerated the procedure very well. Uriel Alfaro MD cc: 142 TT: 09/10/2016 10:55:04 Confirmation # [id number] Dictation # [id number] rn
--- NOTE | 2016-09-10 11:29 | EEG ---
DATE: 09/10/2016 INTRODUCTION: This is a digitally recorded EEG monitoring using standard EEG montages. BACKGROUND RHYTHM: The EEG shows a background activity of 7 Hz, theta activity in parietooccipital r egion. The EEG activity is bilaterally symmetrical and synchronous. There is attenuation of the rozina kground activity on eye opening. Small amount of movement artifact noticed in this EEG recording. ABNORMAL POTENTIALS: No spikes, sharp waves or focal slowing was seen. PHOTIC STIMULATION AND HYPERVENTILATION: Photic stimulation did not reveal any abnormality. Hyperve ntilation was not performed. IMPRESSION: Abnormal EEG. The above findings are consistent with mild bihemispheric cerebral dysfun ction. No epileptiform activity seen in this EEG recording. Uriel Alfaro MD cc: 142 TT: 09/10/2016 11:28:41 Confirmation # [id number] Dictation # [id number] nate
--- NOTE | 2016-09-10 13:06 | CON ---
DATE: 09/10/2016 CHIEF COMPLAINT: Urinary retention. HISTORY OF PRESENT ILLNESS: This is a 56-year-old male who is an insulin-dependent diabetic. He was brought to the ER unresponsive. A Bacon catheter was placed and is currently indwelling. According to the patient, he had been voiding well prior to coming to the hospital. The urine is currently cl ear. PAST MEDICAL HISTORY: Significant for insulin-dependent diabetes. He also has a bicuspid aortic ross ve. ALLERGIES: He has no allergies. MEDICATIONS: He takes an insulin pump at home along with Diovan, Lipitor. SOCIAL HISTORY: Does not smoke. Ethanol socially. FAMILY HISTORY: Noncontributory. REVIEW OF SYMPTOMS: Currently, no symptoms referable to the head, eyes, ears, nose or throat. No ca rdiac or respiratory symptoms. No GI symptoms. PHYSICAL EXAMINATION: GENERAL: Shows him to be somewhat slow in response to questions. He is well oriented x 3. VITAL SIGNS: He is afebrile, blood pressure 143/80, pulse 71. HEENT: Sclerae clear. Conjunctivae not injected. Normocephalic. ABDOMEN: No CVA pain. No hepatosplenomegaly, rebound or guarding. No suprapubic tenderness. GENITALIA: Scrotum, cord, epididymis testicle all within normal limits. RECTAL: I did a rectal exam on him. He has good sphincter tone. LABORATORY DATA: Shows a white count 6300, hemoglobin 12.1. His creatinine is 0.8. IMPRESSION: I discussed with him removing the Bacon catheter which I do not feel he should need. Th e catheter is going to be removed. I will have the nurses bladder scan him later in the day, after h e voids to make sure he is emptying. Robinson Steen MD cc: [id number] TT: 09/10/2016 13:05:50 Confirmation # [id number] Dictation # [id number] jn
--- NOTE | 2016-09-10 13:14 | PN ---
DATE: 09/10/2016 The patient in room 362, bed 1. REASON FOR CONSULTATION AND FOLLOWUP: Bicuspid aortic valve aortic stenosis, DKA. HISTORY OF PRESENT ILLNESS: A 56-year-old male with past medical history significant for diabetes mo re than 20 years, was admitted with DKA. The patient longstanding history of bicuspid aortic valve, being followed by quality assurance qa lab technician. The patient on admission was intubated and developed a CVA. Repeat echo 09/08/2016 showed normal size left ventricle, mild concentric LV hypertrophy with normal LV eject ion fraction 72%, bicuspid aortic valve with moderate valvular aortic stenosis, trace aortic regurgit ation, mild to moderate pulmonary hypertension with RVSP 48 mmHg. The patient lying flat in bed with out any chest pain, shortness of breath or palpitation. PHYSICAL EXAMINATION: VITAL SIGNS: Blood pressure 143/80, respirations 19, pulse 71, temperature 98.5. HEAD: Normocephalic. EYES: Pupils normal. Conjunctivae normal. NECK: JVP low. Carotid equal. THORAX: AP diameter normal. LUNGS: Clear. CARDIOVASCULAR: S1, S2, ejection systolic murmur grade III/. No rub. ABDOMEN: Soft, nontender, no organomegaly. Bowel sounds normal. EXTREMITIES: No clubbing, no cyanosis. LABORATORY DATA: Shows WBC 6.3, hemoglobin 12.1, hematocrit 33.0, platelets 289. Sodium 137, potass ium 4.0, BUN 11, creatinine 0.8, random glucose 178. AST 116, ALT 117, total protein 5.2, albumin 2. 6. DIAGNOSES: Bicuspid aortic valve, moderate aortic valve stenosis, mild to moderate pulmonary hyperte nsion, diabetes mellitus, hypertension, hyperlipidemia, diabetic ketoacidosis, hypokalemia which has improved on today's blood work. PLAN: To continue aspirin 81 mg daily, heparin 5000 units subq q. 8 hours, potassium 20 mEq b.i.d., insulin 14 units Levemir subQ at bedtime, Lipitor 10 mg daily, Protonix 40 mg IV daily, Tricor 145 mg p.o. daily, lisinopril 10 mg daily, Zosyn 3.37 gram IV q. 6 hours. Clinically, cardiac status is s table. We will continue to follow with you. Clifton Sinha MD cc: [id number] TT: 09/10/2016 13:13:36 Confirmation # [id number] Dictation # [id number] jn
--- NOTE | 2016-09-10 20:24 | PN ---
DATE: 09/10/2016 ROOM: 362 This is a 56-year-old male with recent uncontrolled type 1 insulin-dependent diabetes, presenting her e with diabetic ketoacidosis and has since then improved clinically and metabolically as noted luiso f. His glycemic levels are fluctuating as his oral intake is also quite variable at this time. His latest chemistry showed a BUN of 11, sodium 137, potassium 4.0, chloride 106, CO2 23, glucose 178 and creatinine 0.8. His glucose levels have ranged from 110-156 mg/dL. So at this time, will continue the same basal and bolus insulin regimen as ordered with Humalog given as 4 units subQ t.i.d. before meals as given. Will continue the Levemir given as 14 units subQ at b edtime daily as ordered. Will titrate incrementally as indicated to optimize metabolic control. Stoney mendieta follow and advise accordingly. Rocío Rich MD cc: [id number] TT: 09/10/2016 20:23:06 Confirmation # [id number] Dictation # [id number] mn
[2016-09-10] MEDS: Insulin Detemir 100 units/ml Vial (Levemir) SC SCH (21:48)
--- NOTE | 2016-09-10 21:58 | PN ---
DATE: 09/09/2016 The patient was seen this morning in room 362, bed 2. He is headed down for MRI. Neurology notes appreciated. Medications reviewed. He is continued on IV antibiotics. Mental status remains markedly altered from baseline. I cannot help but suspect hypoxic or hypoglycemic encephalopathy as the etiology to current symptoms, but will look for MRI for anatomical structural infarct injury. Yosef Neil MD cc: 439 TT: 09/10/2016 21:57:57 Confirmation # [id number] Dictation # [id number] mn
--- NOTE | 2016-09-10 22:39 | PN ---
DATE: 09/10/2016 The patient was seen this Tuesday morning in room 362, bed 1. He was sleeping in bed when I arrived. He is arousable and answers simple questions. He is a bit confused and quite slow in mentation. This is a marked change from his baseline. PHYSICAL EXAMINATION: LUNGS: Showed rather good aeration, right and left. HEART: Regular, nontachycardic. ABDOMEN: Soft. EXTREMITIES: Show no edema. A spinal tap was done earlier today by Dr. Lucero to rule out any possible infectious etiologies to his constellation of symptoms and altered mental status. I spoke with Dr. Lucero at great length regarding his neurologic condition. Both of us are in agreement that the small lacunar-like findings on CT/MRI cannot be the cause of his current neurologic deficit. I explained that to me the patient appears clinically to be more like a hypoxic brain injury or perhaps even hypoglycemic brain injury, as it has been several days now and his mental status has not recovered completely at day 8 since his initial presentation to the Emergency Room with a sugar over 900 and ketoacidosis. He was down on the floor at home for as long as 2 days and it was not known whether there could have been a hypoxic or hypoglycemic episode triggering at the beginning of that period. Dr. Lucero and I discussed the results of the MRI which was essentially unremarkable. We will await the results of the lumbar puncture done this morning. I spoke with the patient's in my office later this afternoon reviewing the case and bringing her up to date with the results and findings till now. She is [facility] in the effort to make arrangements for his transfer there. After checking the results and discussing with neurology, he may be ready for discharge from acute care facility to a rehab facility as early as late Tuesday or Tuesday (tomorrow or the next day). Yosef Neil MD cc: 439 TT: 09/10/2016 22:39:14 Confirmation # [id number] Dictation # [id number] fallon KESSLER
[2016-09-11 07:10] LABS: ADD MANUAL DIFF? NO
[2016-09-11 07:15] LABS: BASO # 0.01 [, K/mm3] (0.0-2.0); BASO % 0.2 % (0.0-3.0); EOS # 0.2 (0.0-0.7); EOS % 2.8 % (1.5-5.0); GRAN # 3.08 (1.4-6.5); HEMATOCRIT 32.2 % (42.0-52.0); LYMPH # 1.6 (1.2-3.4); LYMPH % 28.7 % (22.0-35.0); MEAN CELL VOLUME 82.8 fL (80.0-105.0); MEAN CORPUSCULAR HEMOGLOBIN 30.3 pg (25.0-35.0); MEAN CORPUSCULAR HGB CONC 36.6 g/dl (31.0-37.0); MEAN PLATELET VOLUME 9.4 fl (7.0-11.0); MONO # 0.6 (0.1-0.6); MONO % 11.3 % (1.0-6.0); PLATELET COUNT 331 [, 10^3/uL] (120.0-450.0); RED CELL DISTRIBUTION WIDTH 12.2 % (11.5-14.5); WHITE BLOOD COUNT 5.4 [, 10^3/ul] (4.5-11.0)
[2016-09-11 07:44] LABS: ALB/GLOB RATIO 1.1 (1.1-1.8); ALKALINE PHOSPHATASE 84 U/L (38-133); ALT/SGPT 147 U/L (7-56); AST/SGOT 130 U/L (15-59); BILIRUBIN,TOTAL 0.4 mg/dL (0.2-1.3); BLOOD UREA NITROGEN 15 mg/dL (7-21); CALCIUM 8.6 mg/dL (8.4-10.5); CARBON DIOXIDE 29 mmol/L (21-33); CHLORIDE 102 mmol/L (95-110); GFR AFRICAN-AMERICAN > 60; GLUCOSE,RANDOM 186 mg/dL (70-110); POTASSIUM 3.5 mmol/L (3.6-5.0); SODIUM 138 mmol/L (132-148); TOTAL PROTEIN 5.3 g/dL (5.8-8.3)
[2016-09-11] MEDS: Insulin Lispro 1 UNITS/0.01 ML SC SCH ×7 (09:19→22:31)
[2016-09-11] MEDS: Potassium Chloride 20 mEq ER Tab PO SCH ×2 (09:19→18:06)
--- NOTE | 2016-09-11 10:48 | PN ---
DATE: 09/11/2016 ROOM: 362 SUBJECTIVE: This is a 56-year-old male with recent uncontrolled type 2 insulin-requiring diabetes. His oral intake has been quite variable as per the nursing staff and insulin dose modification is und ertaken thereof. His latest chemistries showed a BUN of 15, sodium 138, potassium 3.5, chloride 102, CO2 29, glucose 186 and creatinine 0.8. His glucose levels have ranged from 110-178 mg/dL. So at t his time, we will continue the basal and bolus insulin regimen as modified and we will keep the Humal og at 4 units subQ t.i.d. before meals as ordered. We will continue the Levemir given as 14 units ordaz bQ at bedtime daily as given. We will titrate incrementally as indicated to optimize metabolic contr ol. We will follow and advise accordingly. Rocío Rich MD cc: [id number] TT: 09/11/2016 10:48:11 Confirmation # [id number] Dictation # [id number] tn
[2016-09-11] MEDS ORDERED: Bacitracin 500 Units/gm Oint Foilpak UD ONE (11:16)
[2016-09-11] MEDS: Bacitracin 500 Units/gm Oint Foilpak UD TOP SCH (11:19)
--- NOTE | 2016-09-11 15:49 | PN ---
DATE: 09/11/2016 The patient was seen in room 362, bed 1 this Tuesday morning, sitting out of bed in a chair, quite a wake and appearing alert. PHYSICAL EXAMINATION: GENERAL: His speech is very slowly and very deliberate. Mentation is slow and obviously a challenge to him. HEENT: Conjunctivae are pink. Mucous membranes are moist. NECK: Supple without masses. LUNGS: Clear. HEART: Regular, not tachycardic. EXTREMITIES: Show no edema. There is no focal motor deficit. 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 I am pleased that the patient seems to be doing much better today than yesterday. Will continue our current regimen. He is scheduled for transfer to [facility] facility tomorrow. I spoke with his last night, and she has been working on arrangements at [facility]. Yoesf Neil MD cc: 439 TT: 09/11/2016 15:48:01 Confirmation # [id number] Dictation # [id number] dn
[2016-09-11] MEDS: Insulin Detemir 100 units/ml Vial (Levemir) SC SCH (22:31)
[2016-09-12 06:36] LABS: ADD MANUAL DIFF? NO
[2016-09-12 06:40] LABS: BASO # 0.02 [, K/mm3] (0.0-2.0); BASO % 0.4 % (0.0-3.0); EOS # 0.1 (0.0-0.7); EOS % 2.4 % (1.5-5.0); GRAN # 3.04 (1.4-6.5); GRAN % 55.7 % (50.0-68.0); HEMATOCRIT 34.2 % (42.0-52.0); LYMPH # 1.8 (1.2-3.4); LYMPH % 32.2 % (22.0-35.0); MEAN CELL VOLUME 83.8 fL (80.0-105.0); MEAN CORPUSCULAR HEMOGLOBIN 30.1 pg (25.0-35.0); MEAN PLATELET VOLUME 9.4 fl (7.0-11.0); MONO # 0.5 (0.1-0.6); MONO % 9.3 % (1.0-6.0); PLATELET COUNT 352 [, 10^3/uL] (120.0-450.0); RED CELL DISTRIBUTION WIDTH 12.6 % (11.5-14.5); WHITE BLOOD COUNT 5.5 [, 10^3/ul] (4.5-11.0)
[2016-09-12 07:00] LABS: BLOOD UREA NITROGEN 16 mg/dL (7-21); CALCIUM 8.8 mg/dL (8.4-10.5); CARBON DIOXIDE 30 mmol/L (21-33); CHLORIDE 101 mmol/L (98-107); GFR AFRICAN-AMERICAN > 60; GLUCOSE,RANDOM 166 mg/dL (70-110); POTASSIUM 3.7 mmol/L (3.6-5.0); SODIUM 138 mmol/L (132-148)
[2016-09-12 07:34] VITALS: RESP 19; TEMP 98.5; O2SAT 98
[2016-09-12] MEDS: Insulin Lispro 1 UNITS/0.01 ML SC SCH ×3 (07:48→12:29)
[2016-09-12] MEDS: Potassium Chloride 20 mEq ER Tab PO SCH (09:57)
[2016-09-12] MEDS: Bacitracin 500 Units/gm Oint Foilpak UD TOP SCH (10:00)
[2016-09-12 10:17] VITALS: BP 150/80
--- NOTE | 2016-09-12 11:14 | PN ---
DATE: 09/12/2016 ROOM: 362 This is a 56-year-old male presenting here with uncontrolled type 1 insulin-dependent diabetes and ordaz pervening diabetic ketoacidosis and dehydration and has since then improved clinically and metabolica lly as noted thereof. He received vigorous IV hydration with intensive insulin therapy using an insu maite drip infusion as noted thereof. His glycemic levels are fluctuating, but much improved at this time and the latest glucose levels hav e ranged from 166-265 and 186 mg/dL. The latest chemistry showed a BUN of 16, sodium 138, potassium 3.7, chloride 101, CO2 30, glucose 166 and creatinine 0.8. So at this time, we will modify his basal and bolus insulin regimen and increase the Levemir to 16 un its subQ at bedtime daily to start tonight. We will also increase the Humalog to 6 units subQ t.i.d. before meals to start at lunchtime today as ordered. We will obtain serial chemistries and suppleme nt accordingly as needed. We will follow. Rocío Rich MD cc: [id number] TT: 09/12/2016 11:14:42 Confirmation # [id number] Dictation # [id number] en
[2016-09-12] MEDS ORDERED: Insulin Lispro 1 UNITS/0.01 ML SC SCH (11:30)
[2016-09-12 15:47] VITALS: PULSE 71
[2016-09-12] MEDS ORDERED: Insulin Detemir 100 units/ml Vial (Levemir) SC SCH (22:00)
--- NOTE | 2016-09-13 08:40 | PN ---
DATE: 09/12/2016 The patient was seen this Tuesday morning in room 362, bed 1 with his at the bedside. He is prep aring to discharge to [facility] rehab facility. He is awake, alert, sitting out of bed in a chair, in no acute distress. Chronic Bacon catheter remains in place. He was eating and taking p.o. well. He is very slow in mentation, but moving all extremities with no focal, motor neurologic deficit. PLAN: Transfer to [facility] later today. Yosef Neil MD cc: 439 TT: 09/13/2016 08:40:14 Confirmation # [id number] Dictation # [id number] en
[2016-09-14 02:57] LABS: HSV 2 DNA Not Detected (Not Detected); SPECIMEN SOURCE CSF (())
== END 2016-09-12 16:07 | disposition home or self-care (01) | DRG 637 ==
LOC: ED 15:52 → ERH 18:08 → CCU 18:45 → 3RNO 09-06 23:00
PROVIDERS: ADMIT Internal Medicine; ATTEND Internal Medicine
PROC: 0BH17EZ Insertion of Endotracheal Airway into Trachea, Via Natural or Artificial Opening (ICD-10-PCS; principal; 2016-09-02)
PROC: 5A1945Z Respiratory Ventilation, 24-96 Consecutive Hours (ICD-10-PCS; 2016-09-02)
PROC: 009U3ZX Drainage of Spinal Canal, Percutaneous Approach, Diagnostic (ICD-10-PCS; 2016-09-10)
DX: E10.10 Type 1 diabetes mellitus with ketoacidosis without coma (principal); I63.9 Cerebral infarction, unspecified; G93.41 Metabolic encephalopathy; N17.9 Acute kidney failure, unspecified; Q23.1 Congenital insufficiency of aortic valve; F05 Delirium due to known physiological condition; M62.82 Rhabdomyolysis; E87.1 Hypo-osmolality and hyponatremia; I10 Essential (primary) hypertension; Z79.4 Long term (current) use of insulin; Z96.41 Presence of insulin pump (external) (internal); E86.0 Dehydration; E87.5 Hyperkalemia; E78.5 Hyperlipidemia, unspecified; Z87.891 Personal history of nicotine dependence; R41.82 Altered mental status, unspecified; T50.995A Adverse effect of other drugs, medicaments and biological substances, initial encounter; R33.9 Retention of urine, unspecified; E87.6 Hypokalemia; I27.2 Other secondary pulmonary hypertension